=== PATIENT | male | born 1960 | race Caucasian/White ===

== ENCOUNTER 2016-10-22 10:02 | Outpatient (CLI) | payer BC ==
[~2016-10-22] VITALS: Ht 193 cm; Wt 97.1 kg
[~2016-10-22 10:02] MED LIST changes: -AMOX-358 PO; -EPIN0.3P2 IJ; -FLUC100T6 PO; -HYDR-3062 PO; -METR500T PO; -OMEP20TA7 PO
--- OUTSIDE RECORDS SUMMARY | 2016-10-22 10:06 | XMS REPORT | Continuity of Care Document ---
Author Author [facility] Organization [facility] Address Unknown Phone Unavailable Care Team Providers Care Wood Veneer Taper Name Role Phone Km Romero PCP [phone] Source Comments Some departments are not documenting in the electronic medical record. If you do not see the information that you expected, contact Release of Information in the Health Information Management department at [phone] for further assistance in locating additional records.[facility] Active Allergies and Adverse Reactions Allergen Noted Date Severity Reactions Comments Aspirin 09/12/2016 High ANAPHYLAXIS [place] 09/20/2016 Low STOMACH UPSET Egg 09/20/2016 High [...] (EPIPEN Inject 0.3 mg into the Active 2-ALVELL) 1 mg/mL injection muscle once as needed. [...] Encounters Date Type Specialty Providers Description 10/22/2016 [facility] Jeremi Hicks MD Dysphagia Encounter 10/22/2016 Surgery Jeremi Hicks MD Canceled ESOPHAGOGASTRODUODENOSCOP Y 10/09/2016 Telephone GastroenterMya Sampson Appointment Request - EGD - [facility] 10/08/2016 Prep for Case Gastroenterology Jeremi Hicks MD 10/08/2016 Telephone Gastroenterology Jeremi Hicks MD Other - repeat EGD 10/08/2016 Telephone Gastroenterology Corwin Lind MD Provider Discussion About Patient 10/04/2016 [facility] Jeremi Hicks MD Dysphagia Encounter 10/04/2016 Endo [...] GastroenterMya Sampson Appointment Request - EGD/Colonoscopy - [facility] 09/12/2016 Office Visit Gastroenterology Corwin Lind [...] Taken Blood Pressure 130/75 10/04/2016 9:07 AM RETAIL BANKING MANAGER Pulse 85 10/04/2016 9:07 AM RETAIL BANKING MANAGER Temperature 36.9 C (98.4 F) 10/04/2016 8:37 AM RETAIL BANKING MANAGER Respiratory Rate 16 09/12/2016 1:29 PM RETAIL BANKING MANAGER Height 1.93 m (6' 4") 10/04/2016 7:07 AM RETAIL BANKING MANAGER Weight 98.884 kg (218 lb) 10/04/2016 7:07 AM RETAIL BANKING MANAGER Body Mass Index 26.55 10/04/2016 7:07 AM RETAIL BANKING MANAGER Oxygen Saturation 99% 10/04/2016 9:07 AM RETAIL BANKING MANAGER Plan of Care Health Maintenance Due Date Last Done Comments Hepatitis C Screening 1960 Physical (Comprehensive) 1968 Exam Pertussis Vaccine 1972 Tetanus Vaccine 1978 Influenza Vaccine 06/13/2016 Colorectal Cancer 10/04/2026 10/04/2016, 10/04/2016 Screening Procedures from Last 3 Months Procedure Name Priority Date/Time Associated Diagnosis Comments TELEMETRY STRIPS-SCAN 10/08/2016 Results for this 12:11 PM RETAIL BANKING MANAGER procedure are in the results section. ESOPHAGOGASTRODUODENOSCOP 10/04/2016 Dysphagia Y BIOPSY 7:30 AM RETAIL BANKING MANAGER ESOPHAGOGASTRODUODENOSCOP 10/04/2016 Dysphagia Y & Colonoscopy with 7:30 AM RETAIL BANKING MANAGER Fabiola for dysphagia, h/o EOE and Ileocecal valve polyp. Needs PAT prior on separate day. COLONOSCOPY and EGD with 10/04/[address] Hicks for 7:30 AM RETAIL BANKING MANAGER dysphagia, h/o EOE and Ileocecal valve polyp. Needs PAT prior on separate day. Results from Last 3 Months TELEMETRY STRIPS-SCAN (10/08/2016 12:11 PM) Narrative Ordered by an unspecified provider. SURGICAL PATHOLOGY (10/04/2016 8:59 AM) Component Value Range PATHOLOGY REPORT [facility] [email or web address] Apryl Bernardo MD, PhD, Director of Anatomic Pathology Department of Pathology and Laboratory Medicine [address] [place] [phone] Surgical Pathology Office: [phone] SURGICAL PATHOLOGY REPORT NAME: MENDY AGOSTO SURG PATH #: [id number] MR #: [id number] SPECIMEN CLASS: SR BILLING #: [id number] ALT ID #: LOCATION: [facility] DATE OF [...] See comment. Comment: E. Pursuant to the Weigh Boss Program at the [facility] Pathology Department, selected slides from this case [...] of Pathology and Laboratory Medicine of the [facility] ([employer]) in compliance with CLIA'88 regulations. Some of these tests rely on the use of "analyte specific reagents" and are subject to specific labeling requirements by the FDA. Known positive and negative control tissues demonstrate appropriate staining. This testing was developed by the Department of Pathology and Laboratory Medicine of the [facility]. It has not been cleared or approved by the FDA. The FDA has determined that such clearance or approval is not necessary. 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 Providers: Jeremi Hicks MD (Doctor), Yana Basilio RN (Nurse), Ricardo Lucas, Disaster Director (Disaster Director), Hollie Wang MD (Fellow) Referring Physician: Corwin [...] 36 seconds Procedure Code(s): --- Professional --- 91934, Colonoscopy, flexible; with biopsy, single or multiple Diagnosis Code(s): --- Professional --- K64.8, Other hemorrhoids K63.5, Polyp of colon CPT copyright 2015 [employer]. All rights reserved. The codes documented in this report are preliminary and upon technical administrative assistant review may be revised to meet current [...] ID Moderate growth RODOLFO ALBICANS Specimen Esophageal [place] Organism Antibiotic Method Susceptibility Moderate growth rodolfo [...] Vázquez Procedure Date: 10/04/2016 7:31 AM CSN: [id number] Date of : 1960 Gender: Male Attending Physician: Jeremi Hicks MD Procedure: Upper GI endoscopy Indications: Dy sphagia, History of celiac disease. Providers: Jeremi Hicks MD (Doctor), Yana Basilio RN (Nurse), Ricardo Lucas, Disaster Director (Disaster Director), Hollie Wang MD (Fellow) Referring Physician: Corwin [...] 6 seconds Procedure Code(s): --- Professional --- 76399, Esophagogastroduodenoscopy, flexible, transoral; with biopsy, single or multiple Diagnosis Code(s): --- Professional --- B37.81, Candidal esophagitis K22.2, Esophageal obstruction K31.7, Polyp of stomach and duodenum R13.10, Dysphagia, unspecified CPT copyright 2015 [employer]. All rights reserved. The codes documented in this report are preliminary and upon technical administrative assistant review may be revised to meet current [...]
[2016-10-22] MEDS ORDERED: OMEP20TA7 PO (10:36)
[2016-10-22 10:45] VITALS: BP 145/87
[2016-11-01] MEDS ORDERED: METR500T PO (09:30)
== END 2016-10-22 10:30 | disposition home or self-care (01) ==
LOC: PREOP 10:02
PROVIDERS: ATTEND Surgery
DX: Z01.818 Encounter for other preprocedural examination (principal); Z11.2 Encounter for screening for other bacterial diseases; C18.9 Malignant neoplasm of colon, unspecified
CPT/HCPCS: 87081

== ENCOUNTER → 2016-10-22 | Outpatient (CLI) | payer BC ==
[~2016-10-22] MED LIST: AMOX-358 PO; CHLO1CAP PO; DIPH25CA79 PO; EPIN0.3P2 IJ; FLUC100T6 PO; HYDR-3062 PO; LOPE-134 PO; METR500T PO; MOME13HF2 IH; MONT10TA21 PO; OMEP20TA7 PO; RT-ALBUINH IH
--- OUTSIDE RECORDS SUMMARY | 2016-10-22 08:54 | XMS REPORT | Continuity of Care Document ---
Author Author [facility] Organization [facility] Address Unknown Phone Unavailable Care Team Providers Care Dial Brusher Name Role Phone Km Romero PCP [phone] Source Comments Some departments are not documenting in the electronic medical record. If you do not see the information that you expected, contact Release of Information in the Health Information Management department at [phone] for further assistance in locating additional records.[facility] Active Allergies and Adverse Reactions Allergen Noted Date Severity Reactions Comments Aspirin 09/12/2016 High ANAPHYLAXIS Claude 09/20/2016 Low STOMACH UPSET Egg 09/20/2016 High ANAPHYLAXIS Latex 09/20/2016 Medium HIVES Oats 09/20/2016 High ANAPHYLAXIS Other 09/12/2016 Medium HIVES Patient states he is allergic to most antibiotics except cephalexin, he does not know the names of any of the antibiotics he has tried Peanut 09/20/2016 High ANAPHYLAXIS Pepper 09/20/2016 High ANAPHYLAXIS Poultry 09/20/2016 High ANAPHYLAXIS Rice 09/20/2016 High ANAPHYLAXIS Shellfish Containing High ANAPHYLAXIS Products Tylenol 09/12/2016 Low SEE COMMENTS Urinary retention Vegetable Derived 09/20/2016 Low STOMACH UPSET can only have potatos and small amounts of spinach Wheat 09/20/2016 High ANAPHYLAXIS Yeast 09/20/2016 High ANAPHYLAXIS Current Medications Prescription Sig. Disp. Refills Start End Date Status Date albuterol (VENTOLIN HFA, Inhale 1-2 Puffs by mouth Active PROAIR HFA, PROVENTIL into the lungs as Needed HFA) 90 mcg/actuation for Wheezing or Shortness inhaler of Breath. Shake well before use. montelukast (SINGULAIR) Take 10 mg by mouth at Active 10 mg tablet bedtime daily. loperamide (IMODIUM) 2 mg Take 2 mg by mouth daily. Active capsule diphenhydrAMINE (BENADRYL Take 25 mg by mouth three Active ALLERGY) 25 mg tablet times daily with meals. clidinium/chlordiazePOXID Take 1 Cap by mouth Active E(+) (LIBRAX) 2.5/5 mg daily. cap Mometasone-Formoterol Inhale by mouth into the Active 200-5 mcg/actuation HFAA lungs. EPINEPHrine(+) (EPIPEN Inject 0.3 mg into the Active 2-LAVELL) 1 mg/mL injection muscle once as needed. pen (2-Pack) Inject 0.3 mg (1 Pen) into thigh if needed for anaphylactic reaction. May repeat in 5-15 minutes if needed. electrolyte GUT PEG Split Dose 4000 mL 0 09/12/20 10/04/20 Discontin (NULYTELY, COLYTE, 16 16 ued GAVILYTE-N) 420 gram oral solution Active Problems No known active problems Most Recent Encounters Date Type Specialty Providers Description 10/22/2016 [facility] Jeremi Hicks MD Dysphagia Encounter 10/22/2016 Surgery Jeremi Hicks MD Canceled ESOPHAGOGASTRODUODENOSCOP Y 10/09/2016 Telephone GastroenterMya Sampson Appointment Request - EGD - [facility] 10/08/2016 Prep for Case Gastroenterology Jeremi Hicks MD 10/08/2016 Telephone Gastroenterology Jeremi Hicks MD Other - repeat EGD 10/08/2016 Telephone Gastroenterology Corwin Lind MD Provider Discussion About Patient 10/04/2016 [facility] Jeremi Hicks MD Dysphagia Encounter 10/04/2016 Endo Rslt Enc GastroenterCorwin Tesfaye MD 10/04/2016 Endo Rslt Enc GastroenterCorwin Tesfaye MD 10/04/2016 Surgery Jeremi Hicks MD COLONOSCOPY and EGD with Dr. Hicks for dysphagia, h/o EOE and Ileocecal valve polyp. Needs PAT prior on separate day. 09/20/2016 PAC Office Anesthesiology Corwin Lind MD Preop cardiovascular exam Visit (Primary Dx); Preop testing 09/20/2016 Anesthesia Bia Worley APRN Event 09/19/2016 Telephone GastroenterJeremi Marshall MD Patient Questions 09/16/2016 Telephone GastroenterMya Sampson Appointment Request - EGD/Colonoscopy - [facility] 09/12/2016 Office Visit Gastroenterology Corwin Lind MD Colonic adenoma (Primary Dx); Celiac disease 09/12/2016 Prep for Case Gastroenterology Corwin Lind MD 09/11/2016 Telephone Gastroenterology Corwin Lind MD Referral Social History Tobacco Use Types Packs/Day Years Used Date Never Smoker Smokeless Tobacco: Never Used Alcohol Use Drinks/Week oz/Week Comments No 0 Standard 0.0 drinks or equivalent Last Filed Vital Signs Vital Sign Reading Time Taken Blood Pressure 130/75 10/04/2016 9:07 AM [employer] Pulse 85 10/04/2016 9:07 AM [employer] Temperature 36.9 C (98.4 F) 10/04/2016 8:37 AM [employer] Respiratory Rate 16 09/12/2016 1:29 PM [employer] Height 1.93 m (6' 4") 10/04/2016 7:07 AM [employer] Weight 98.884 kg (218 lb) 10/04/2016 7:07 AM [employer] Body Mass Index 26.55 10/04/2016 7:07 AM [employer] Oxygen Saturation 99% 10/04/2016 9:07 AM [employer] Plan of Care Health Maintenance Due Date Last Done Comments Hepatitis C Screening 1960 Physical (Comprehensive) 1968 Exam Pertussis Vaccine 1972 Tetanus Vaccine 1978 Influenza Vaccine 06/13/2016 Colorectal Cancer 10/04/2026 10/04/2016, 10/04/2016 Screening Procedures from Last 3 Months Procedure Name Priority Date/Time Associated Diagnosis Comments TELEMETRY STRIPS-SCAN 10/08/2016 Results for this 12:11 PM [employer] procedure are in the results section. ESOPHAGOGASTRODUODENOSCOP 10/04/2016 Dysphagia Y BIOPSY 7:30 AM [employer] ESOPHAGOGASTRODUODENOSCOP 10/04/2016 Dysphagia Y & Colonoscopy with 7:30 AM [employer] Fabiola for dysphagia, h/o EOE and Ileocecal valve polyp. Needs PAT prior on separate day. COLONOSCOPY and EGD with 10/04/[address] Hicks for 7:30 AM [employer] dysphagia, h/o EOE and Ileocecal valve polyp. Needs PAT prior on separate day. Results from Last 3 Months TELEMETRY STRIPS-SCAN (10/08/2016 12:11 PM) Narrative Ordered by an unspecified provider. SURGICAL PATHOLOGY (10/04/2016 8:59 AM) Component Value Range PATHOLOGY REPORT [facility] [email or web address] Apryl Bernardo MD, PhD, Director of Anatomic Pathology Department of Pathology and Laboratory Medicine [address] [place] [id number] Surgical Pathology Office: [phone] SURGICAL PATHOLOGY REPORT NAME: MENDY AGOSTO SURG PATH #: [id number] MR #: [id number] SPECIMEN CLASS: SR BILLING #: [id number] ALT ID #: LOCATION: [facility] DATE OF PROCEDURE: 10/04/2016 AGE: 56 SEX: M DATE RECEIVED: 10/04/2016 : 1960 TIME RECEIVED: 08:59 PHYSICIAN: JEREMI SO DATE OF REPORT: 10/10/2016 COPY TO: DATE OF PRINTIN10/11/2016 Procedures/Addenda Addendum Date Ordered: 10/11/2016 Status: Signed Out Date Complete: 10/11/2016 By: Ezio Rubio MD, Attending Physician Date Reported: 10/11/2016 Addendum Diagnosis The original diagnosis remains unchanged. Addendum Comment Immunostains for synaptophysin and chromogranin on block A1 are negative. A Ki-67 immunostain shows an elevated proliferative index in the neoplastic tissue. Ezio Rubio MD, Attending Physician ################################################## ###################### Final Diagnosis: A. Duodenal mucosa, "duodenal biopsy", biopsy: Normal villous architecture with no diagnostic abnormalities. B. Gastric mucosa, "gastric polyp", biopsy: Fundic gland polyp. C. Squamous mucosa, "distal esophageal biopsy", biopsy: Mild changes suggestive of reflux. A fungal (PAS/F) stain is negative. D. Squamous mucosa, "proximal esophageal biopsy: A fungal (PAS/F) stain demonstrates few fungal yeast/pseudohyphate forms, consistent with Rodolfo, present in association with a detached clusters of superficial squamous cells. We cannot exclude the possibility that this represents a contaminant from the upper aerodigestive tract. E. 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 See comment. Comment: E. Pursuant to the [employer] Program at the [facility] Pathology Department, selected slides from this case have been concurrently reviewed by the following pathologist: Dr. Barnett who agrees with the final diagnosis. Attestation: By this signature, I attest that I have personally formulated the final interpretation expressed in this report and that the above diagnosis is based upon my examination of the slides and/or other material indicated in this report. +++Electronically Signed Out By+++ ke10/08/2016 Interpreted by: Ezio Rubio MD, Attending Physician Mynor Woods MD 10/10/2016 ################################################## ###################### Material Received: A: duodenal biopsy B: gastric polyp C: distal esophageal biopsy D: proximal esophageal biopsy E: mass at ileocecal valve History: 56-year-old male with a clinical history of dysphagia and colon polyp. A. Rule out celiac disease. C. Rule out eosinophilic esophagitis. D. Rule out eosinophilic esophagitis. Gross Description: A. Received in formalin labeled "duodenal" is a 1.3 x 0.2 x 0.2 cm aggregate of adrian-brown soft tissue fragments. The specimen is entirely submitted in cassette A1. (jrz) B. Received in formalin labeled "gastric polyp" is a 0.3 x 0.2 x 0.2 cm aggregate of adrian-brown soft tissue fragments. The specimen is entirely submitted in cassette B1. (jrz) C. Received in formalin labeled "distal esophagus" is a 0.8 x 0.2 x 0.1 cm aggregate of adrian-brown soft tissue fragments. The specimen is entirely submitted in cassette C1. (jrz) D. Received in formalin labeled "proximal esophagus" is a 1.1 x 0.2 x 0.1 cm aggregate of adrian-brown soft tissue fragments. The specimen is entirely submitted in cassette D1. (jrz) E. Received in formalin labeled "mass at ileocecal valve" is a 2.5 x 1.0 x 0.2 cm aggregate of adrian-brown and pink, friable, soft tissue fragments. The specimen is entirely submitted in cassette E1. (jrz) paj/10/04/2016 Mynor Woods MD If immunohistochemical stains and/or in situ hybridization are cited in this report, the performance characteristics were determined by the Department of Pathology and Laboratory Medicine of the [facility] ([employer]) in compliance with CLIA'88 regulations. Some of these tests rely on the use of "analyte specific reagents" and are subject to specific labeling requirements by the FDA. Known positive and negative control tissues demonstrate appropriate staining. This testing was developed by the Department of Pathology and Laboratory Medicine of the [facility]. It has not been cleared or approved by the FDA. The FDA has determined that such clearance or approval is not necessary. COLONOSCOPY (10/04/2016 8:01 AM) Component Value Range Provation Report Patient Name: Raghu Vázquez Procedure Date: 10/04/2016 8:01 AM CSN: [id number] Date of : 1960 Gender: Male Attending Physician: Jeremi Hicks MD Procedure: Colonoscopy Indications: Hi story of IC valve polyp seen from outside colonoscopy, biopsies of which showed adxenoma - presents for possible rescection. Providers: Jeremi Hicks MD (Doctor), Yana Basilio RN (Nurse), Ricardo Lucas, Logging Crew Foreman (Logging Crew Foreman), Hollie Wang MD (Fellow) Referring Physician: Corwin Lind MD Medications: Mo nitored Anesthesia Care Complications: No immediate complications. Procedure: Pre-Anesthesia Assessment: - Prior to the procedure, a History and Physical was performed, and patient medications and allergies were reviewed. The patient's tolerance of previous anesthesia was also reviewed. The risks and benefits of the procedure and the sedation options and risks were discussed with the patient. All questions were answered, and informed consent was obtained. Prior Anticoagulants: The patient has taken no previous anticoagulant or antiplatelet agents. ASA Grade Assessment: III - A patient with severe systemic disease. After reviewing the risks and benefits, the patient was deemed in satisfactory condition to undergo the procedure. After I obtained informed consent, the scope was passed under direct vision. Throughout the procedure, the patient's blood pressure, pulse, and oxygen saturations were monitored continuously. The Colonoscope [id number] was introduced through the anus and advanced to the cecum, identified by appendiceal orifice and ileocecal valve. The colonoscopy was performed without difficulty. The patient tolerated the procedure well. The quality of the bowel preparation was good. The terminal ileum, ileocecal valve, appendiceal orifice, and rectum were photographed. Findings: A large friable 4 cm mass was found at the ileocecal valve extending in to the small bowel. The terminal ileum was unable to be intubated due to the mass involving the entire IC valve and causing narrowing - hence the mass was deemed unresectable by endoscopy. Careful insepction of the mass was performed with white light and NBI and absence of mucosal pattern seen in one are concerning for malignancy. Multiple biopsies were obtained with cold forceps for histology. Non-bleeding external and internal hemorrhoids were found during retroflexion. The hemorrhoids were small. Impression: - A large friable 4 cm mass was found at the ileocecal valve extending in to the small bowel. The terminal ileum was unable to be intubated due to the mass involving the entire IC valve and causing narrowing - hence the mass was deemed unresectable by endoscopy. Careful insepction of the mass was performed with white light and NBI and absence of mucosal pattern seen in one are concerning for malignancy. Multiple biopsies were obtained with cold forceps for histology. - Non-bleeding external and internal hemorrhoids. Estimated Blood Loss: Estimated blood loss was minimal. Recommendation: - Patient has a contact number available for emergencies. The signs and symptoms of potential delayed complications were discussed with the patient. Return to normal activities tomorrow. Written discharge instructions were provided to the patient. - Resume previous diet. - Continue present medications. - Await pathology results. - Surgery consultation for right hemicolectomy. - Repeat colonoscopy in 1 year after surgery. - Return to referring physician. Scope In: 8:06:18 AM Scope Out: 8:29:54 AM Scope Withdrawal Time 0 hours 19 minutes 4 seconds Total Procedure Duration Time 0 hours 23 minutes 36 seconds Procedure Code(s): --- Professional --- 80221, Colonoscopy, flexible; with biopsy, single or multiple Diagnosis Code(s): --- Professional --- K64.8, Other hemorrhoids K63.5, Polyp of colon CPT copyright 2015 [employer]. All rights reserved. The codes documented in this report are preliminary and upon tank insulator rubber review may be revised to meet current compliance requirements. Attending Participation: I was present and participated during the entire procedure, including non-mccallum portions. Jeremi Hicks MD 10/04/2016 9:46:12 AM The attending physician has electronically signed and finalized this document. MD Hollie Stockton MD 10/04/2016 8:53:28 AM Number of Addenda: 0 Note Initiated On: 10/04/2016 8:01 AM CULTURE-FUNGAL,OTHER (10/04/2016 7:59 AM) Component Value Range Battery Name FUNGUS CULTURE Specimen Description ESOPHAGEAL BRUSH Special Requests R/O Rodolfo Culture Moderate growth RODOLFO ALBICANS A correlation between CHAPARRO and clinical outcome is not yet available for Posaconazole. (A) Report Status FINAL 10/09/2016 Organism ID Moderate growth RODOLFO ALBICANS Specimen Esophageal [place] Organism Antibiotic Method Susceptibility Moderate growth rodolfo albicans Caspofungin YEAST CHAPARRO 0.03 SUSCEPTIBLE. : Susceptible Moderate growth rodolfo albicans Flucytosine YEAST CHAPARRO 0.25 SUSCEPTIBLE. : Susceptible Moderate growth rodolfo albicans Posaconazole YEAST CHAPARRO 0.03 NO INTERPRETATION AVAILABLE Moderate growth rodolfo albicans Voriconazole YEAST CHAPARRO <=0.008 SUSCEPTIBLE.: Susceptible Moderate growth rodolfo albicans Itraconazole YEAST CHAPARRO 0.06 SUSCEPTIBLE.: Susceptible Moderate growth rodolfo albicans Fluconazole YEAST CHAPARRO 0.25 SUSCEPTIBLE. : Susceptible Moderate growth rodolfo albicans Amphotericin B YEAST CHAPARRO 0.5 NO INTERPRETATION AVAILABLE Moderate growth rodolfo albicans Method YEAST CHAPARRO YEAST CHAPARRO EGD (10/04/2016 7:31 AM) Component Value Range Provation Report Patient Name: Raghu Vázquez Procedure Date: 10/04/2016 7:31 AM CSN: [id number] Date of : 1960 Gender: Male Attending Physician: Jeremi Hicks MD Procedure: Upper GI endoscopy Indications: Dy sphagia, History of celiac disease. Providers: Jeremi Hicks MD (Doctor), Yana Basilio RN (Nurse), Ricardo Lucas, Logging Crew Foreman (Logging Crew Foreman), Hollie Wang MD (Fellow) Referring Physician: Corwin Lind MD Medications: Mo nitored Anesthesia Care Complications: No immediate complications. Procedure: Pre-Anesthesia Assessment: - Prior to the procedure, a History and Physical was performed, and patient medications and allergies were reviewed. The patient's tolerance of previous anesthesia was also reviewed. The risks and benefits of the procedure and the sedation options and risks were discussed with the patient. All questions were answered, and informed consent was obtained. Prior Anticoagulants: The patient has taken no previous anticoagulant or antiplatelet agents. ASA Grade Assessment: III - A patient with severe systemic disease. After reviewing the risks and benefits, the patient was deemed in satisfactory condition to undergo the procedure. After obtaining informed consent, the endoscope was passed under direct vision. Throughout the procedure, the patient's blood pressure, pulse, and oxygen saturations were monitored continuously. The Endoscope [id number] was introduced through the mouth, and advanced to the second part of duodenum. The upper GI endoscopy was accomplished without difficulty. The patient tolerated the procedure well. Findings: Esophagogastric landmarks were identified: the Z-line was found at 45 cm from the incisors. Small white plaques were found in the entire esophagus. Brushings were obtained to rule out candidiasis. Esophagus biopsies were obtained from distal and proximal esophagus to rule out EoE. There was a stenosis found at the GEJ which was traversed with moderate resistance with regular EGD scope and resulted in a mucosal tear. Given that a tear was created with passage of a regular scope (hence dilation to 9mm), no further dilation was attempted. LA Grade A (one or more mucosal breaks less than 5 mm, not extending between tops of 2 mucosal folds) esophagitis with no bleeding was found. A few sessile polyps with no bleeding and no stigmata of recent bleeding were found in the gastric body. One polyp was removed with a cold biopsy forceps for histology evaluation. The examined duodenum was normal. Biopsies for histology were taken with a cold forceps for for evaluation of celiac disease. Estimated blood loss was minimal. Impression: - Esophagogastric landmarks identified. - Monilial esophagitis. - Esophageal stenosis. - A few gastric polyps. Resected and retrieved. - Normal examined duodenum. Estimated Blood Loss: Estimated blood loss: none. Recommendation: - Patient has a contact number available for emergencies. The signs and symptoms of potential delayed complications were discussed with the patient. Return to normal activities tomorrow. Written discharge instructions were provided to the patient. - Resume previous diet. - Continue present medications. - Return to referring physician. - Await pathology results. - Repeat the upper endoscopy in 2 weeks for dilation Scope In: 7:47:23 AM Scope Out: 8:01:29 AM Total Procedure Duration Time 0 hours 14 minutes 6 seconds Procedure Code(s): --- Professional --- 40853, Esophagogastroduodenoscopy, flexible, transoral; with biopsy, single or multiple Diagnosis Code(s): --- Professional --- B37.81, Candidal esophagitis K22.2, Esophageal obstruction K31.7, Polyp of stomach and duodenum R13.10, Dysphagia, unspecified CPT copyright 2015 [employer]. All rights reserved. The codes documented in this report are preliminary and upon tank insulator rubber review may be revised to meet current compliance requirements. Attending Participation: I was present and participated during the entire procedure, including non-mccallum portions. Jeremi Hicks MD 10/04/2016 9:42:26 AM The attending physician has electronically signed and finalized this document. MD Hollie Stockton MD 10/04/2016 8:42:46 AM Number of Addenda: 0 Note Initiated On: 10/04/2016 7:31 AM POC GLUCOSE (10/04/2016 7:11 AM) Component Value Range Glucose, POC 146 (H) 70-100 MG/DL CBC (09/20/2016 2:46 PM) Component Value Range White Blood Cells 10.1 4.5-11.0 K/UL RBC 5.02 4.4-5.5 M/UL Hemoglobin 14.6 13.5-16.5 GM/DL Hematocrit 43.7 40-50 % MCV 87.1 80-100 FL MCH 29.1 26-34 PG MCHC 33.5 32.0-36.0 G/DL RDW 13.5 11-15 % Platelet Count 205 150-400 K/UL MPV 9.4 7-11 FL Specimen Blood BASIC METABOLIC PANEL (09/20/2016 2:46 PM) Component Value Range Sodium 135 (L) 137-147 MMOL/L Potassium 3.8 3.5-5.1 MMOL/L Chloride 103 98-110 MMOL/L CO2 24 21-30 MMOL/L Anion Gap 8 3-12 Glucose 181 (H) 70-100 MG/DL Blood Urea Nitrogen 14 7-25 MG/DL Creatinine 0.81 0.4-1.24 MG/DL Calcium 9.4 8.5-10.6 MG/DL eGFR Non >60Comment: >60 mL/min The eGFR is not validated for use in drug dosing adjustments. Continue to use estimated creatinine clearance per dosing reference text. Please contact the Clinical Pharmacist for questions. eGFR >60Comment: >60 mL/min The eGFR is not validated for use in drug dosing adjustments. Continue to use estimated creatinine clearance per dosing reference text. Please contact the Clinical Pharmacist for questions. Specimen Blood
[2016-10-22 09:20] LABS: RED BLOOD COUNT 5.13 10^6/uL (4.35-5.85); RED CELL DISTRIBUTION WIDTH 13.3 % (10.0-14.5); WHITE BLOOD COUNT 11.3 10^3/uL (4.3-11.0)
[2016-10-22 09:42] LABS: ALANINE AMINOTRANSFERASE 20 U/L (0-55); ALBUMIN 4.4 G/DL (3.2-4.5); ANION GAP 8 MMOL/L (5-14); ASPARTATE AMINO TRANSFERASE 21 U/L (5-34); BILIRUBIN,TOTAL 0.5 MG/DL (0.1-1.0); BLOOD UREA NITROGEN 14 MG/DL (7-18); BUN/CREATININE RATIO 16; CALCIUM 9.6 MG/DL (8.5-10.1); CARBON DIOXIDE 23 MMOL/L (21-32); CHLORIDE 106 MMOL/L (98-107); CREATININE SERUM 0.89 MG/DL (0.60-1.30); GFR ESTIMATED > 60; GLUCOSE 137 MG/DL (70-105); POTASSIUM 4.3 MMOL/L (3.6-5.0); SODIUM 137 MMOL/L (135-145); TOTAL PROTEIN 7.7 G/DL (6.4-8.2)
--- NOTE | 2016-10-22 14:06 | Diagnostic Imaging Report ---
EXAMINATION: PET-CT TECHNIQUE: Serum glucose level at the time of the study is: 133 mg/dL. 13.4 mCi of FDG was administered intravenously followed by obtaining PET images with corresponding noncontrast CT scan images. The CT scan was performed for anatomic correlation and attenuation correction and was not performed according to the diagnostic protocol of the areas covered. The scan was performed over the entire body. INDICATION: Colon cancer. FINDINGS: There is symmetric FDG uptake in the brain. In the neck, there is no suspicious hypermetabolic mass identified. In the chest, no suspicious hypermetabolic lesion is seen. IN THE ABDOMEN AND PELVIS: There is expected urinary tract excretion. There is mild thickening in the cecum associated with mild FDG uptake with maximum SUV of 3.2. This may correlate with the provided history of colon cancer. Correlate with endoscopic findings. There are no hepatic hypermetabolic masses. No hypermetabolic para-aortic enlarged lymph nodes seen. There is a non-hypermetabolic mildly prominent lymph node in the retrocecal region, may relate to an involved lymph node without significant FDG uptake at this point. Osseous structures demonstrate no hypermetabolic mass. The lower extremities demonstrate no hypermetabolic mass of significance. There is mild nonspecific, commonly physiologic increased uptake seen in the testicles. IMPRESSION: There is mild increased FDG uptake seen associated with soft tissue thickening in the cecum. There is no associated hypermetabolic mass to suggest metastatic disease. There is a mildly prominent retrocecal lymph node without significant FDG uptake, although nonspecific, it may relate to an early regional lymph node involvement. Dictated by: Dictated on workstation # [id number]
== END ==
LOC: RAD 08:48
PROVIDERS: ATTEND Surgery
DX: C18.9 Malignant neoplasm of colon, unspecified (principal); R59.0 Localized enlarged lymph nodes; K59.8 Other specified functional intestinal disorders
CPT/HCPCS: 36415; 80053; 82378; 85027

== ENCOUNTER 2016-10-24 06:00 | Inpatient (IN) | payer BC ==
[2016-10-24] VITALS (13 sets, daily range): BP systolic 143–166; BP diastolic 85–96
[~2016-10-24] VITALS: Ht 193 cm; Wt 98.7 kg
[~2016-10-24 06:00] MED LIST changes: +OMEP20TA7 PO
--- OUTSIDE RECORDS SUMMARY | 2016-10-24 06:09 | XMS REPORT | Continuity of Care Document ---
Author Author [facility] Organization [facility] Address Unknown Phone Unavailable Care Team Providers Care Farmworker Brooder Farm Name Role Phone Km Romero PCP [phone] Source Comments Some departments are not documenting in the electronic medical record. If you do not see the information that you expected, contact Release of Information in the Health Information Management department at [phone] for further assistance in locating additional records.[facility] Active Allergies and Adverse Reactions Allergen Noted Date Severity Reactions Comments Aspirin 09/12/2016 High ANAPHYLAXIS [place] 09/20/2016 Low STOMACH UPSET Egg 09/20/2016 High [...] Encounters Date Type Specialty Providers Description 10/22/2016 [facility] Jeremi Hicks MD Dysphagia Encounter 10/22/2016 Surgery Jeremi Hicks MD Canceled ESOPHAGOGASTRODUODENOSCOP Y 10/09/2016 Telephone GastroenterMya Sampson Appointment Request - EGD - [facility] 10/08/2016 Prep for Case Gastroenterology Jeremi Hicks MD 10/08/2016 Telephone Gastroenterology Jeremi Hicks MD Other - repeat EGD 10/08/2016 Telephone Gastroenterology Corwin Lind MD Provider Discussion About Patient 10/04/2016 [facility] Jeremi Hicks MD Dysphagia Encounter 10/04/2016 Endo [...] GastroenterMya Sampson Appointment Request - EGD/Colonoscopy - [facility] 09/12/2016 Office Visit Gastroenterology Corwin Lind MD [...] Taken Blood Pressure 130/75 10/04/2016 9:07 AM PROGRAM ASSISTANT Pulse 85 10/04/2016 9:07 AM PROGRAM ASSISTANT Temperature 36.9 C (98.4 F) 10/04/2016 8:37 AM PROGRAM ASSISTANT Respiratory Rate 16 09/12/2016 1:29 PM PROGRAM ASSISTANT Height 1.93 m (6' 4") 10/04/2016 7:07 AM PROGRAM ASSISTANT Weight 98.884 kg (218 lb) 10/04/2016 7:07 AM PROGRAM ASSISTANT Body Mass Index 26.55 10/04/2016 7:07 AM PROGRAM ASSISTANT Oxygen Saturation 99% 10/04/2016 9:07 AM PROGRAM ASSISTANT Plan of Care Health Maintenance Due Date Last Done Comments Hepatitis C Screening 1960 Physical (Comprehensive) 1968 Exam Pertussis Vaccine 1972 Tetanus Vaccine 1978 Influenza Vaccine 06/13/2016 Colorectal Cancer 10/04/2026 10/04/2016, 10/04/2016 Screening Procedures from Last 3 Months Procedure Name Priority Date/Time Associated Diagnosis Comments TELEMETRY STRIPS-SCAN 10/08/2016 Results for this 12:11 PM PROGRAM ASSISTANT procedure are in the results section. ESOPHAGOGASTRODUODENOSCOP 10/04/2016 Dysphagia Y BIOPSY 7:30 AM PROGRAM ASSISTANT ESOPHAGOGASTRODUODENOSCOP 10/04/2016 Dysphagia Y & Colonoscopy with 7:30 AM PROGRAM ASSISTANT Fabiola for dysphagia, h/o EOE and Ileocecal valve polyp. Needs PAT prior on separate day. COLONOSCOPY and EGD with 10/04/[address] Hicks for 7:30 AM PROGRAM ASSISTANT dysphagia, h/o EOE and Ileocecal valve polyp. Needs PAT prior on separate day. Results from Last 3 Months TELEMETRY STRIPS-SCAN (10/08/2016 12:11 PM) Narrative Ordered by an unspecified provider. SURGICAL PATHOLOGY (10/04/2016 8:59 AM) Component Value Range PATHOLOGY REPORT [facility] [email or web address] Apryl Bernardo MD, PhD, Director of Anatomic Pathology Department of Pathology and Laboratory Medicine [address] [place] [phone] Surgical Pathology Office: [phone] SURGICAL PATHOLOGY REPORT NAME: MENDY AGOSTO SURG PATH #: [id number] MR #: [id number] SPECIMEN CLASS: SR BILLING #: [id number] ALT ID #: LOCATION: [facility] DATE OF [...] See comment. Comment: E. Pursuant to the Keypuncher Program at the [facility] Pathology Department, selected slides from this [...] of Pathology and Laboratory Medicine of the [facility] ([employer]) in compliance with CLIA'88 regulations. Some of these tests rely on the use of "analyte specific reagents" and are subject to specific labeling requirements by the FDA. Known positive and negative control tissues demonstrate appropriate staining. This testing was developed by the Department of Pathology and Laboratory Medicine of the [facility]. It has not been cleared or approved by the FDA. The FDA has determined that such clearance or approval is not necessary. 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 Providers: Jeremi Hicks MD (Doctor), Yana Basilio RN (Nurse), Ricardo Lucas, Performance Improvement Specialist (Performance Improvement Specialist), Hollie Wang MD (Fellow) Referring Physician: Corwin [...] 36 seconds Procedure Code(s): --- Professional --- 12333, Colonoscopy, flexible; with biopsy, single or multiple Diagnosis Code(s): --- Professional --- K64.8, Other hemorrhoids K63.5, Polyp of colon CPT copyright 2015 [employer]. All rights reserved. The codes documented in this report are preliminary and upon soda clerk review may be revised to meet current [...] ID Moderate growth RODOLFO ALBICANS Specimen Esophageal [place] Organism Antibiotic Method Susceptibility Moderate growth rodolfo [...] Vázquez Procedure Date: 10/04/2016 7:31 AM CSN: [id number] Date of : 1960 Gender: Male Attending Physician: Jeremi Hicks MD Procedure: Upper GI endoscopy Indications: Dy sphagia, History of celiac disease. Providers: Jeremi Hicks MD (Doctor), Yana Basilio RN (Nurse), Ricardo Lucas, Performance Improvement Specialist (Performance Improvement Specialist), Hollie Wang MD (Fellow) Referring Physician: Corwin [...] 6 seconds Procedure Code(s): --- Professional --- 92003, Esophagogastroduodenoscopy, flexible, transoral; with biopsy, single or multiple Diagnosis Code(s): --- Professional --- B37.81, Candidal esophagitis K22.2, Esophageal obstruction K31.7, Polyp of stomach and duodenum R13.10, Dysphagia, unspecified CPT copyright 2015 [employer]. All rights reserved. The codes documented in this report are preliminary and upon soda clerk review may be revised to meet current [...]
--- OUTSIDE RECORDS SUMMARY | 2016-10-24 06:10 | XMS REPORT | Continuity of Care Document ---
Author Author [facility] Organization [facility] Address Unknown Phone Unavailable Care Team Providers Care Network Security Administrator Name Role Phone Km Romero PCP [phone] Source Comments Some departments are not documenting in the electronic medical record. If you do not see the information that you expected, contact Release of Information in the Health Information Management department at [phone] for further assistance in locating additional records.[facility] Active Allergies and Adverse Reactions Allergen Noted Date Severity Reactions Comments Aspirin 09/12/2016 High ANAPHYLAXIS [place] 09/20/2016 Low STOMACH UPSET Egg 09/20/2016 High [...] Encounters Date Type Specialty Providers Description 10/22/2016 [facility] Jeremi Hicks MD Dysphagia Encounter 10/22/2016 Surgery Jeremi Hicks MD Canceled ESOPHAGOGASTRODUODENOSCOP Y 10/09/2016 Telephone GastroenterMya Sampson Appointment Request - EGD - [facility] 10/08/2016 Prep for Case Gastroenterology Jeremi Hicks MD 10/08/2016 Telephone Gastroenterology Jeremi Hicks MD Other - repeat EGD 10/08/2016 Telephone Gastroenterology Corwin Lind MD Provider Discussion About Patient 10/04/2016 [facility] Jeremi Hicks MD Dysphagia Encounter 10/04/2016 [...] GastroenterMya Sampson Appointment Request - EGD/Colonoscopy - [facility] 09/12/2016 Office Visit Gastroenterology Corwin Lind MD [...] Taken Blood Pressure 130/75 10/04/2016 9:07 AM PHARMACY GRADUATE INTERN Pulse 85 10/04/2016 9:07 AM PHARMACY GRADUATE INTERN Temperature 36.9 C (98.4 F) 10/04/2016 8:37 AM PHARMACY GRADUATE INTERN Respiratory Rate 16 09/12/2016 1:29 PM PHARMACY GRADUATE INTERN Height 1.93 m (6' 4") 10/04/2016 7:07 AM PHARMACY GRADUATE INTERN Weight 98.884 kg (218 lb) 10/04/2016 7:07 AM PHARMACY GRADUATE INTERN Body Mass Index 26.55 10/04/2016 7:07 AM PHARMACY GRADUATE INTERN Oxygen Saturation 99% 10/04/2016 9:07 AM PHARMACY GRADUATE INTERN Plan of Care Health Maintenance Due Date Last Done Comments Hepatitis C Screening 1960 Physical (Comprehensive) 1968 Exam Pertussis Vaccine 1972 Tetanus Vaccine 1978 Influenza Vaccine 06/13/2016 Colorectal Cancer 10/04/2026 10/04/2016, 10/04/2016 Screening Procedures from Last 3 Months Procedure Name Priority Date/Time Associated Diagnosis Comments TELEMETRY STRIPS-SCAN 10/08/2016 Results for this 12:11 PM PHARMACY GRADUATE INTERN procedure are in the results section. ESOPHAGOGASTRODUODENOSCOP 10/04/2016 Dysphagia Y BIOPSY 7:30 AM PHARMACY GRADUATE INTERN ESOPHAGOGASTRODUODENOSCOP 10/04/2016 Dysphagia Y & Colonoscopy with 7:30 AM PHARMACY GRADUATE INTERN Fabiola for dysphagia, h/o EOE and Ileocecal valve polyp. Needs PAT prior on separate day. COLONOSCOPY and EGD with 10/04/[address] Hicks for 7:30 AM PHARMACY GRADUATE INTERN dysphagia, h/o EOE and Ileocecal valve polyp. Needs PAT prior on separate day. Results from Last 3 Months TELEMETRY STRIPS-SCAN (10/08/2016 12:11 PM) Narrative Ordered by an unspecified provider. SURGICAL PATHOLOGY (10/04/2016 8:59 AM) Component Value Range PATHOLOGY REPORT [facility] [email or web address] Apryl Bernardo MD, PhD, Director of Anatomic Pathology Department of Pathology and Laboratory Medicine [address] [place] [phone] Surgical Pathology Office: [phone] SURGICAL PATHOLOGY REPORT NAME: MENDY AGOSTO SURG PATH #: [id number] MR #: [id number] SPECIMEN CLASS: SR BILLING #: [id number] ALT ID #: LOCATION: [facility] DATE OF [...] See comment. Comment: E. Pursuant to the Passenger Car Upholsterer Apprentice Program at the [facility] Pathology Department, selected slides from this [...] x 0.2 x 0.1 cm aggregate of adiran-brown soft tissue fragments. The specimen is entirely [...] of Pathology and Laboratory Medicine of the [facility] ([employer]) in compliance with CLIA'88 regulations. Some of these tests rely on the use of "analyte specific reagents" and are subject to specific labeling requirements by the FDA. Known positive and negative control tissues demonstrate appropriate staining. This testing was developed by the Department of Pathology and Laboratory Medicine of the [facility]. It has not been cleared or approved by the FDA. The FDA has determined that such clearance or approval is not necessary. 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 Providers: Jeremi Hicks MD (Doctor), Yana Basilio RN (Nurse), Ricardo Lucas, Repair Technician (Repair Technician), Hollie Wang MD (Fellow) Referring Physician: Corwin [...] 36 seconds Procedure Code(s): --- Professional --- 15304, Colonoscopy, flexible; with biopsy, single or multiple Diagnosis Code(s): --- Professional --- K64.8, Other hemorrhoids K63.5, Polyp of colon CPT copyright 2015 [employer]. All rights reserved. The codes documented in this report are preliminary and upon electrical technology instructor review may be revised to meet current [...] ID Moderate growth RODOLFO ALBICANS Specimen Esophageal [place] Organism Antibiotic Method Susceptibility Moderate growth rodolfo [...] Vázquez Procedure Date: 10/04/2016 7:31 AM CSN: [id number] Date of : 1960 Gender: Male Attending Physician: Jeremi Hicks MD Procedure: Upper GI endoscopy Indications: Dy sphagia, History of celiac disease. Providers: Jeremi Hicks MD (Doctor), Yana Basilio RN (Nurse), Ricardo Lucas, Repair Technician (Repair Technician), Hollie Wang MD (Fellow) Referring Physician: Corwin [...] 6 seconds Procedure Code(s): --- Professional --- 57649, Esophagogastroduodenoscopy, flexible, transoral; with biopsy, single or multiple Diagnosis Code(s): --- Professional --- B37.81, Candidal esophagitis K22.2, Esophageal obstruction K31.7, Polyp of stomach and duodenum R13.10, Dysphagia, unspecified CPT copyright 2015 [employer]. All rights reserved. The codes documented in this report are preliminary and upon electrical technology instructor review may be revised to meet current [...]
[2016-10-24] MEDS ORDERED: MIDAZOLAM 2 MG/2 ML (VERSED) VIAL ONE (06:55)
[2016-10-24] MEDS ORDERED: ETOMIDATE IV SOLN 20 MG/10 ML VIAL ONE ×2 (06:55→07:01)
[2016-10-24] MEDS ORDERED: ONDANSETRON 4 MG/2 ML (SDV) Z0FRAN ONE (06:55)
[2016-10-24] MEDS ORDERED: ROCURONIUM 50 MG/5 ML (ZEMURON) VIAL IV ONE ×2 (06:55→09:03)
[2016-10-24] MEDS ORDERED: SEVOFLURANE (ULTANE) 15 ML INHAL SOLN ONE ×4 (06:55→10:08)
[2016-10-24] MEDS ORDERED: LACTATED RINGERS 1,000 ML IV ONE ×3 (06:55→09:42)
[2016-10-24] MEDS ORDERED: fentaNYL INJECTION 250 MCG/5 ML AMP ONE (06:56)
[2016-10-24] MEDS: LACTATED RINGERS 1,000 ML IV PRN ×3 (06:59→09:59)
[2016-10-24] MEDS ORDERED: FAMOTIDINE 20MG/2ML IV (PEPCID) IV ONE (07:00)
[2016-10-24] MEDS ORDERED: metroNIDAZOLE 500 MG/100 ML IVPB (PRE-MIX) IV ONE (07:00)
[2016-10-24] MEDS ORDERED: ceFAZolin 2GM/50 ML DEXTROSE (PREMIX) IV ONE (07:00)
[2016-10-24] MEDS ORDERED: BUP/EPI 0.25% 1:200,000 (MARCAINE) 30 ML VIAL ONE (07:13)
[2016-10-24] MEDS ORDERED: LIDOCAINE 1% INJ 20 ML (XYLOCAINE) VIAL ONE (07:28)
[2016-10-24] MEDS ORDERED: BUPIVACAINE 0.5% 30 ML (SENSORCAINE) VIAL ONE (07:28)
--- NOTE | 2016-10-24 07:38 | Progress Note-Pre Operative ---
Pre-Operative Progress Note H&P Reviewed The H&P was reviewed, patient examined and no changes noted. Date H&P Reviewed: Oct 24, 2016 Time H&P Reviewed: 07:38 Pre-Operative Diagnosis: cecal cancer RENAN DECKER DO Oct 24, 2016 7:38 am
[2016-10-24] MEDS ORDERED: LABETALOL HCL 20 MG/4 ML VIAL ONE (08:50)
[2016-10-24] MEDS ORDERED: fentaNYL INJECTION 100 MCG/2 ML AMP IVP PRN (10:00)
[2016-10-24] MEDS ORDERED: GLYCOPYRROLATE 0.2 MG/ML (ROBINUL) 2 ML VIAL ONE (10:08)
[2016-10-24] MEDS ORDERED: NEOSTIGMINE (BLOXIVERZ ) 1 MG/1ML 10 ML VIAL ONE (10:08)
--- NOTE | 2016-10-24 10:13 | Progress Note-Post Operative ---
Post-Operative Progess Note Epoxy Fabrication Supervisor Dr. Montelongo Pre-Operative Diagnosis cecal cancer Post-Operative Diagnosis same Post-Op Procedure Note Date of Procedure: Oct 24, 2016 Name of Procedure: laparoscopic hand assisted right colon resection hepatic flexure mobilization Procedure Note/Findings see note Anesthesia Type general Estimated blood loss (mL): 25 mL Specimen(s) collected right colon RENAN DECKER DO Oct 24, 2016 10:13 am
[2016-10-24] MEDS ORDERED: morphine PCA 30 MG/30 ML VIAL IV PRN (10:15)
[2016-10-24] MEDS ORDERED: fentaNYL INJECTION 100 MCG/2 ML AMP ONE (10:24)
--- NOTE | 2016-10-24 11:31 | Consultation-Hospitalist ---
HPI History of Present Illness: HPI/Chief Complaint CC: Cecal mass resection POD # 1 HPI: This is a 56yoWM s/p laparoscopic left partial colon resection for cecal mass performed by Dr. Farley. Surgery uncomplicated. Dr. Farley requested consultation from Dr. Garcia and pt will be sent to ICU on ice chip diet. Pt has significant amount of allergies to both food and medications. I introduce myself to the patient and his primary care provider is Dr. Romero in [place] of which she only goes once a year. He had seen [facility] gastroenterology but mass was so large it could not be removed via scope. At this current time pain is controlled and overall doing well and is expected. Scribed by Jose Alberto Holden under the direct supervision of Dr. Garcia. Source: patient Exam Limitations: clinical condition Date Seen 10/24/16 Attending Physician Mateo Farley DO PCP Km Romero DO Referring Physician Date of Admission Home Medications & Allergies Home Medications Reviewed patient Home Medication Reconciliation Form Allergies Coded Allergies: Poultry (Verified Allergy, Severe, ANAPHYLAXIS, 08/19/16) Yeast (Verified Allergy, Severe, ANAPHYLAXIS, 08/19/16) aspirin (Verified Allergy, Severe, ANAPHYLAXIS, 08/19/16) latex (Verified Allergy, Severe, HIVES, 08/19/16) wheat (Verified Allergy, Severe, ANAPHYLAXIS, 08/19/16) Influenza Virus Vaccines (Verified Allergy, Unknown, 10/22/16) banana (Verified Allergy, Unknown, 10/22/16) corn (Verified Allergy, Unknown, 10/22/16) egg (Verified Allergy, Unknown, 10/22/16) garlic (Verified Allergy, Unknown, 10/22/16) oats (Verified Allergy, Unknown, 10/22/16) onion (Verified Allergy, Unknown, 10/22/16) peanut (Verified Allergy, Unknown, 10/22/16) pepper (Verified Allergy, Unknown, 10/22/16) rice (Verified Allergy, Unknown, 10/22/16) shellfish derived (Verified Allergy, Unknown, 10/22/16) Uncoded Allergies: PAIN RELIEVERS (Allergy, Severe, ANAPHYLAXIS, 08/19/16) ANTIBIOTICS (Allergy, Unknown, 08/19/16) Past Digupbw-Lriule-Ipslty Hx Patient Social History Marrital Status: Employed/Student: employed Alcohol Use: Denies Use Recreational Drug Use: No Smoking Status: Never a Smoker Physical Abuse Screen: No Sexual Abuse: No Recent Foreign Travel: No Contact w/other who traveled: No Recent Hopitalizations: No Recent Infectious Disease Expo: No Immunizations Up To Date Tetanus Booster (TDap): Unknown Seasonal Allergies Seasonal Allergies: Yes (SEVERE ALLERGIES ) Surgeries HX Surgeries: No Respiratory Hx Respiratory Disorders: Yes Respiratory Disorders: Asthma Cardiovascular Hx Cardiovascular Disorders: No Neurological Hx Neurological Disorders: No Reproductive System Hx Reproductive Disorders: No Sexually Transmitted Disease: No HIV/AIDS: No Genitourinary Hx Genitourinary Disorders: No Gastrointestinal Hx Gastrointestinal Disorders: Yes Gastrointestinal Disorders: Chronic Diarrhea, Irritable Bowel Musculoskeletal Hx Musculoskeletal Disorders: No Endocrine Hx Endocrine Disorders: Yes Endocrine Disorders: Diabetes, Non-Insulin dep HEENT HX ENT Disorders: Yes (GLASSES, DENTURES) Loss of Vision: Bilateral Hearing Impairment: Denies Cancer Hx Cancer: No Cancer: Colon Psychosocial Hx Psychiatric Problems: Yes (RELATED TO PROCEDURE) Behavioral Health Disorders: Anxiety Integumentary HX Skin/Integumentary Disorder: Yes (HIVES) Blood Transfusions Hx Blood Disorders: No Adverse Reaction to a Blood Tr: No (N/A) Family Medical History Family Hx: Cardiovascular disease 19 FATHER Colon cancer 19 FATHER Diabetes mellitus 19 FATHER FH: ovarian cancer 19 MOTHER Hypertension 19 FATHER Myocardial infarction Review of Systems Constitutional: see HPI EENTM: no symptoms reported Respiratory: no symptoms reported Cardiovascular: no symptoms reported Gastrointestinal: abdominal pain (LLQ) Genitourinary: no symptoms reported Musculoskeletal: no symptoms reported Skin: no symptoms reported Psychiatric/Neurological: No Symptoms Reported All Other Systems Reviewed Negative Unless Noted: Yes Physical Exam Physical Exam Vital Signs Vital Sign - Last 12Hours 10/24/16 06:20 Temp 97.8 Pulse 85 Resp 18 B/P 145/96 Pulse Ox 97 O2 Delivery Room Air Capillary Refill : General Appearance: No Apparent Distress WD/WN Chronically ill Eyes: Bilateral Eye Normal Inspection, Bilateral Eye PERRL HEENT: PERRL/EOMI Normal ENT Inspection Pharynx Normal Neck: Full Range of Motion Normal Inspection Non Tender Supple Carotid Bruit Respiratory: Chest Non Tender Lungs Clear Normal Breath Sounds No Accessory Muscle Use No Respiratory Distress Cardiovascular: Regular Rate, Rhythm No Edema No Gallop No JVD No Murmur Normal Peripheral Pulses Gastrointestinal: Abnormal Bowel Sounds (decreased) Back: Normal Inspection No CVA Tenderness No Vertebral Tenderness Extremity: Normal Capillary Refill Normal Inspection Normal Range of Motion Non Tender No Calf Tenderness No Pedal Edema Neurologic/Psychiatric: Alert Oriented x3 No Motor/Sensory Deficits Normal Mood/Affect Skin: Normal Color Warm/Dry Lymphatic: No Adenopathy Results Results/Procedures Lab Laboratory Tests 10/25/16 03:34 Assessment/Plan Admission Diagnosis Assessment: Cecal mass colon cancer resection POD #1 Multiple medication and food allergies Asthma GERD Assessment and Plan Monitor closely Monitor any new medication due to allergy list Dr. Farley for disposition Clinical Quality Measures DVT/VTE Risk/Contraindication: Risk Factor Score Per Nursin RFS Level Per Nursing on Admit: 3=High OSMAR GARCIA DO Oct 24, 2016 11:31
[2016-10-24] MEDS: LACTATED RINGERS 1,000 ML IV SCH ×3 (11:34→21:45)
[2016-10-24] MEDS ORDERED: CATHETER FLUSH 10 ML SYR IV PRN (11:45)
[2016-10-24] MEDS: fentaNYL PCA 300 MCG/30 ML VIAL IV PRN (12:10)
[2016-10-24] MEDS: metroNIDAZOLE 500MG/100ML IVPB 100 ML IV SCH ×2 (13:38→22:58)
[2016-10-24] MEDS ORDERED: EPIN0.3P2 IJ (13:50)
[2016-10-24] MEDS ORDERED: FLUC100T6 PO (13:50)
[2016-10-24] MEDS: ceFAZolin 2 GM IV (SDC ONLY) 50 ML IV SCH ×2 (14:32→21:05)
[2016-10-24] MEDS ORDERED: ACETAMINOPHEN 325 MG TABLET/CAPLET (TYLENOL) PO NR (16:15)
[2016-10-24] MEDS: ONDANSETRON 4 MG/2 ML (SDV) Z0FRAN IVP PRN (21:04)
[2016-10-24] MEDS: ACETAMINOPHEN 325 MG TABLET/CAPLET (TYLENOL) PO PRN (21:04)
[2016-10-25] VITALS (25 sets, daily range): BP systolic 142–177; BP diastolic 78–97
[2016-10-25] MEDS: ACETAMINOPHEN 325 MG TABLET/CAPLET (TYLENOL) PO PRN (02:34)
[2016-10-25] MEDS: ONDANSETRON 4 MG/2 ML (SDV) Z0FRAN IVP PRN (02:37)
[2016-10-25 04:39] LABS: BASOPHILS % (AUTO) 0 % (0-10); EOSINOPHILS # (AUTO) 0.1 10^3/uL (0.0-0.3); EOSINOPHILS % (AUTO) 1 % (0-10); LYMPHOCYTES % (AUTO) 8 % (12-44); MEAN CORPUSCULAR HEMOGLOBIN 29 PG (25-34); MEAN CORPUSCULAR HGB CONC 33 G/DL (32-36); MEAN CORPUSCULAR VOLUME 87 FL (80-99); MEAN PLATELET VOLUME 11.2 FL (7.4-10.4); MONOCYTES # (AUTO) 1.7 X 10^3 (0.0-1.0); MONOCYTES % (AUTO) 14 % (0-12); NEUTROPHILS # (AUTO) 9.2 X 10^3 (1.8-7.8); NEUTROPHILS % (AUTO) 77 % (42-75); PLATELET COUNT 183 10^3/uL (130-400); RED CELL DISTRIBUTION WIDTH 13.6 % (10.0-14.5)
[2016-10-25 05:01] LABS: ALANINE AMINOTRANSFERASE 20 U/L (0-55); ALBUMIN 3.6 G/DL (3.2-4.5); ANION GAP 11 MMOL/L (5-14); ASPARTATE AMINO TRANSFERASE 18 U/L (5-34); BILIRUBIN,TOTAL 0.7 MG/DL (0.1-1.0); BLOOD UREA NITROGEN 7 MG/DL (7-18); BUN/CREATININE RATIO 9; CALCIUM 8.2 MG/DL (8.5-10.1); CARBON DIOXIDE 21 MMOL/L (21-32); CHLORIDE 104 MMOL/L (98-107); CREATININE SERUM 0.79 MG/DL (0.60-1.30); GFR ESTIMATED > 60; GLUCOSE 183 MG/DL (70-105); MAGNESIUM 1.5 MG/DL (1.8-2.4); PHOSPHORUS 2.7 MG/DL (2.3-4.7); POTASSIUM 3.5 MMOL/L (3.6-5.0); SODIUM 136 MMOL/L (135-145); TOTAL PROTEIN 6.2 G/DL (6.4-8.2)
[2016-10-25] MEDS: POTASSIUM CL 10MEQ/50ML IVPB 50 ML IV SCH ×3 (05:17→07:21)
[2016-10-25] MEDS: MAGNESIUM 1 GM/100 ML IVPB 100 ML IV SCH ×3 (05:17→10:01)
[2016-10-25] MEDS: KCL 20 MEQ TAB (K-DUR) PO SCH (05:18)
[2016-10-25] MEDS: ceFAZolin 2 GM IV (SDC ONLY) 50 ML IV SCH ×3 (05:25→21:52)
[2016-10-25] MEDS: LACTATED RINGERS 1,000 ML IV SCH ×2 (05:57→16:26)
[2016-10-25] MEDS ORDERED: PROMETHAZINE INJ 25 MG/ML (PHENERGAN) AMP ONE (06:05)
[2016-10-25] MEDS ORDERED: PROMETHAZINE INJ 25 MG/ML (PHENERGAN) AMP IVP ONE ×2 (06:15→06:45)
--- NOTE | 2016-10-25 07:08 | Pulmonary Consultation ---
History of Present Illness History of Present Illness Date of Consultation 10/25/16 07:02 Date of Admission History of Present Illness 56yo WM s/p laparoscopic left partial colon resection secondary to cecal mass. He is now recovering in ICU. Surgery was uncomplicated. PT is complaining of nausea he is getting zofran. is at bedside. I am consulted for pulmonary management. Allergies and Home Medications Allergies Coded Allergies: Poultry (Verified Allergy, Severe, ANAPHYLAXIS, 08/19/16) Yeast (Verified Allergy, Severe, ANAPHYLAXIS, 08/19/16) aspirin (Verified Allergy, Severe, ANAPHYLAXIS, 08/19/16) latex (Verified Allergy, Severe, HIVES, 08/19/16) wheat (Verified Allergy, Severe, ANAPHYLAXIS, 08/19/16) Influenza Virus Vaccines (Verified Allergy, Unknown, 10/22/16) banana (Verified Allergy, Unknown, 10/22/16) corn (Verified Allergy, Unknown, 10/22/16) egg (Verified Allergy, Unknown, 10/22/16) garlic (Verified Allergy, Unknown, 10/22/16) oats (Verified Allergy, Unknown, 10/22/16) onion (Verified Allergy, Unknown, 10/22/16) peanut (Verified Allergy, Unknown, 10/22/16) pepper (Verified Allergy, Unknown, 10/22/16) rice (Verified Allergy, Unknown, 10/22/16) shellfish derived (Verified Allergy, Unknown, 10/22/16) Uncoded Allergies: PAIN RELIEVERS (Allergy, Severe, ANAPHYLAXIS, 08/19/16) ANTIBIOTICS (Allergy, Unknown, 08/19/16) Home Medications Chlordiazepoxide/Clidinium Br 1 Each Capsule 1 CAP PO HS (Reported) Diphenhydramine HCl 25 Mg Capsule 25 MG PO TIDAC PRN PRN FOOD ALLERGIES ( Reported) Epinephrine 0.3 Mg/0.3 Ml Auto.injct 0.3 MG IJ UD (Reported) Fluconazole 100 Mg Tablet 100 MG PO DAILY (Reported) FILLED 10/09/16 #14 FOR A 14 DAY THERAPY Loperamide HCl 2 Mg Tablet 2 MG PO Q8H PRN PRN DIARRHEA (Reported) Montelukast Sodium 10 Mg Tablet 10 MG PO DAILY (Reported) Omeprazole 20 Mg Tablet.dr 20 MG PO BID (Reported) Past Ezdsxuy-Puzoio-Bbhcqw Hx Patient Social History Alcohol Use: Denies Use Recreational Drug Use: No Smoking Status: Never a Smoker Recent Foreign Travel: No Contact w/Someone Who Travel: No Recent Infectious Disease Expo: No Recent Hopitalizations: No Physical Abuse Screen: No Sexual Abuse: No Immunizations Up To Date Tetanus Booster (TDap): Unknown Seasonal Allergies Seasonal Allergies: Yes (SEVERE ALLERGIES ) Surgeries HX Surgeries: No Respiratory Hx Respiratory Disorders: Yes Respiratory Disorders: Asthma Cardiovascular Hx Cardiac Disorders: No Neurological Hx Neurological Disorders: No Reproductive System Hx Reproductive Disorders: No Sexually Transmitted Disease: No HIV/AIDS: No Genitourinary Hx Genitourinary Disorders: No Gastrointestinal Hx Gastrointestinal Disorders: Yes Gastrointestinal Disorders: Chronic Diarrhea, Irritable Bowel Musculoskeletal Hx Musculoskeletal Disorders: No Endocrine Hx Endocrine Disorders: Yes Endocrine Disorders: Diabetes, Non-Insulin dep HEENT HX ENT Disorders: Yes (GLASSES, DENTURES) Loss of Vision: Bilateral Hearing Impairment: Denies Cancer Hx Cancer: No Cancer: Colon Psychosocial Hx Psychiatric Problems: Yes (RELATED TO PROCEDURE) Behavioral Health Disorders: Anxiety Integumentary HX Skin/Integumentary Disorder: Yes (HIVES) Blood Transfusions Hx Blood Disorders: No Adverse Reaction to a Blood Tr: No (N/A) Family Medical History Family Medial History: Cardiovascular disease 19 FATHER Colon cancer 19 FATHER Diabetes mellitus 19 FATHER FH: ovarian cancer 19 MOTHER Hypertension 19 FATHER Myocardial infarction Review of Systems Constitutional: : Malaise: WeaknessNo: Chills, Fever, Other, Sweats Eyes: No: Conjunctivae inflammation, Eyelid inflammation, Other, Pain, Redness , Vision change ENT: No: Ear discharge, Ear pain, Mouth pain, Mouth swelling, Nose congestion, Nose discharge, Nose pain, Other, Throat pain, Throat swelling Respiratory: No: Cough, Dry, Hemoptysis, Other, Pleuritic Pain, SOB with excertion, Shortness of breath, Sputum, Wheezing, Wheezing Cardiovascular: No: Chest Pain, Edema, Lt Headedness, Orthopnea, Other, Palpitations, Paroxysmal Noc. Dyspnea Gastrointestinal: : Abdominal Pain: Nausea Genitourinary: No Dysuria, No Frequency, No Incontinence, No Hematuria, No Retention, No Other Exam Exam Vital Signs Date Time Temp Pulse Resp B/P Pulse Ox O2 Delivery O2 Flow Rate FiO2 10/25/16 06:44 Room Air 10/25/16 06:25 18 10/25/16 06:00 93 25 167/89 95 Room Air 10/25/16 05:36 99.9 10/25/16 05:00 95 40 161/89 95 Room Air 10/25/16 04:00 100.0 10/25/16 04:00 96 Room Air 10/25/16 04:00 96 169/89 94 Room Air 10/25/16 03:00 95 29 157/90 95 Room Air 10/25/16 02:36 95 Room Air 10/25/16 02:00 101 55 165/90 94 Room Air 10/25/16 01:00 103 10/25/16 01:00 100 24 171/88 94 Room Air 10/25/16 00:00 95 Room Air 10/25/16 00:00 100.6 102 20 159/95 95 Room Air 10/24/16 23:00 102 42 166/87 96 Room Air 10/24/16 22:20 100.0 10/24/16 22:00 101 163/85 96 Room Air 10/24/16 21:46 93 Room Air 10/24/16 21:04 102.1 10/24/16 21:00 101 29 157/91 95 Room Air 10/24/16 20:00 96 Room Air 10/24/16 20:00 102.1 102 22 153/92 96 Room Air 10/24/16 19:00 105 10/24/16 19:00 104 26 166/94 96 Room Air 10/24/16 18:00 105 32 159/90 96 Room Air 10/24/16 18:00 100.8 10/24/16 17:00 100.9 10/24/16 17:00 101 21 163/85 97 Room Air 10/24/16 17:00 100.9 10/24/16 16:27 101.8 10/24/16 16:00 101.8 10/24/16 16:00 97 Room Air 10/24/16 16:00 98 148/87 97 Room Air 10/24/16 15:00 96 23 156/89 97 Room Air 10/24/16 14:00 93 16 152/85 96 Room Air 10/24/16 13:00 94 16 145/88 97 Room Air 10/24/16 13:00 90 10/24/16 12:00 80 35 143/85 97 Room Air 10/24/16 11:35 80 10/24/16 11:25 98.6 10/24/16 11:25 97 Room Air I & O 10/25/16 07:00 Intake Total 5150 ml Output Total 8005 ml Balance -2855 ml General Appearance: No Apparent Distress Anxious Neck: Full Range of Motion Non Tender Supple Respiratory: Chest Non Tender Lungs Clear Normal Breath Sounds No Accessory Muscle Use No Respiratory Distress Cardiovascular: Regular Rate, Rhythm No Edema Gastrointestinal: normal bowel sounds non tender soft no organomegaly no pulsatile mass Neurologic/Psychiatric: Alert Oriented x3 Skin: Normal Color Warm/Dry Lymphatic: No Adenopathy Results Lab Laboratory Tests 10/25/16 03:34 Assessment/Plan Assessment/Plan -Colon mass s/p laparoscopic assisted right colon resection -pain management -Continue monitoring -Sinus tach -monitor fever with leukocytosis -continue Ancef Flagyl Clinical Quality Measures DVT/VTE Risk/Contraindication: Risk Factor Score Per Nursin RFS Level Per Nursing on Admit: 3=High KHADIJAH MELENDREZ DO Oct 25, 2016 07:07
[2016-10-25] MEDS: FAMOTIDINE 20MG/2ML IV (PEPCID) IVP SCH (08:15)
--- NOTE | 2016-10-25 08:28 | Progress Note ---
Subjective Subjective/Events-last exam Patient resting in bed. Even respirations. Was nauseated early today, Zofran not effective. One time order of Phenergan was ordered with nausea resolving at this time. Fever over night but now around 99. Sites from incision, not draining. Abdomen soft to palpation, but generalized tenderness. Objective Exam Vital Signs Date Time Temp Pulse Resp B/P Pulse Ox O2 Delivery O2 Flow Rate FiO2 10/25/16 08:09 99.1 92 14 168/82 97 Room Air 10/25/16 07:00 88 10/25/16 06:44 Room Air 10/25/16 06:25 18 10/25/16 06:00 93 25 167/89 95 Room Air 10/25/16 05:36 99.9 10/25/16 05:00 95 40 161/89 95 Room Air 10/25/16 04:00 100.0 10/25/16 04:00 96 Room Air 10/25/16 04:00 96 169/89 94 Room Air 10/25/16 03:00 95 29 157/90 95 Room Air 10/25/16 02:36 95 Room Air 10/25/16 02:00 101 55 165/90 94 Room Air 10/25/16 01:00 103 10/25/16 01:00 100 24 171/88 94 Room Air 10/25/16 00:00 95 Room Air 10/25/16 00:00 100.6 102 20 159/95 95 Room Air 10/24/16 23:00 102 42 166/87 96 Room Air 10/24/16 22:20 100.0 10/24/16 22:00 101 163/85 96 Room Air 10/24/16 21:46 93 Room Air 10/24/16 21:04 102.1 10/24/16 21:00 101 29 157/91 95 Room Air 10/24/16 20:00 96 Room Air 10/24/16 20:00 102.1 102 22 153/92 96 Room Air 10/24/16 19:00 105 10/24/16 19:00 104 26 166/94 96 Room Air 10/24/16 18:00 105 32 159/90 96 Room Air 10/24/16 18:00 100.8 10/24/16 17:00 100.9 10/24/16 17:00 101 21 163/85 97 Room Air 10/24/16 17:00 100.9 10/24/16 16:27 101.8 10/24/16 16:00 101.8 10/24/16 16:00 97 Room Air 10/24/16 16:00 98 148/87 97 Room Air 10/24/16 15:00 96 23 156/89 97 Room Air 10/24/16 14:00 93 16 152/85 96 Room Air 10/24/16 13:00 94 16 145/88 97 Room Air 10/24/16 13:00 90 10/24/16 12:00 80 35 143/85 97 Room Air 10/24/16 11:35 80 10/24/16 11:25 98.6 10/24/16 11:25 97 Room Air I & O 10/25/16 07:00 Intake Total 5150 ml Output Total 8005 ml Balance -2855 ml Capillary Refill : General Appearance: No Apparent Distress Neck: Non Tender Respiratory: Chest Non Tender No Accessory Muscle Use No Respiratory Distress Cardiovascular: Regular Rate, Rhythm No Edema Gastrointestinal: soft no organomegaly tenderness (generalized tenderness) Extremity: No Calf Tenderness No Pedal Edema Neurologic/Psychiatric: Alert Oriented x3 Skin: Normal Color Warm/Dry Other (incisions to abdomen dry. No drainage.) Lymphatic: No Adenopathy Results Lab Laboratory Tests Test 10/24/16 18:20 10/25/16 00:51 10/25/16 03:34 Range/Units Glucometer 184 H 171 H 70-110 MG/DL Alanine Aminotransferase (ALT/SGPT) 20 0-55 U/L Albumin 3.6 3.2-4.5 G/DL Alkaline Phosphatase 63 40-136 U/L Anion Gap 11 5-14 MMOL/L Aspartate Amino Transf (AST/SGOT) 18 5-34 U/L BUN/Creatinine Ratio 9 Basophils # (Auto) 0.0 0.0-0.1 10^3/uL Basophils (%) (Auto) 0 0-10 % Blood Urea Nitrogen 7 7-18 MG/DL Calcium Level 8.2 L 8.5-10.1 MG/DL Carbon Dioxide Level 21 21-32 MMOL/L Chloride Level 104 98-107 MMOL/L Creatinine 0.79 0.60-1.30 MG/DL Eosinophils # (Auto) 0.1 0.0-0.3 10^3/uL Eosinophils (%) (Auto) 1 0-10 % Estimat Glomerular Filtration Rate > 60 Glucose Level 183 H 70-105 MG/DL Hematocrit 42 40-54 % Hemoglobin 14.0 13.3-17.7 G/DL Lymphocytes # (Auto) 1.0 1.0-4.0 X 10^3 Lymphocytes (%) (Auto) 8 L 12-44 % Magnesium Level 1.5 L 1.8-2.4 MG/DL Mean Corpuscular Hemoglobin 29 25-34 PG Mean Corpuscular Hemoglobin Concent 33 32-36 G/DL Mean Corpuscular Volume 87 80-99 FL Mean Platelet Volume 11.2 H 7.4-10.4 FL Monocytes # (Auto) 1.7 H 0.0-1.0 X 10^3 Monocytes (%) (Auto) 14 H 0-12 % Neutrophils # (Auto) 9.2 H 1.8-7.8 X 10^3 Neutrophils (%) (Auto) 77 H 42-75 % Phosphorus Level 2.7 2.3-4.7 MG/DL Platelet Count 183 130-400 10^3/uL Potassium Level 3.5 L 3.6-5.0 MMOL/L Red Blood Count 4.90 4.35-5.85 10^6/uL Red Cell Distribution Width 13.6 10.0-14.5 % Sodium Level 136 135-145 MMOL/L Total Bilirubin 0.7 0.1-1.0 MG/DL Total Protein 6.2 L 6.4-8.2 G/DL White Blood Count 12.0 H 4.3-11.0 10^3/uL Laboratory Tests 10/24/16 18:20: Glucometer 184H 10/25/16 00:51: Glucometer 171H 10/25/16 03:34: Alanine Aminotransferase (ALT/SGPT) 20, Albumin 3.6, Alkaline Phosphatase 63, Anion Gap 11, Aspartate Amino Transf (AST/SGOT) 18, BUN/Creatinine Ratio 9, Basophils # (Auto) 0.0, Basophils (%) (Auto) 0, Blood Urea Nitrogen 7, Calcium Level 8.2L, Carbon Dioxide Level 21, Chloride Level 104, Creatinine 0.79, Eosinophils # (Auto) 0.1, Eosinophils (%) (Auto) 1, Estimat Glomerular Filtration Rate > 60, Glucose Level 183H, Hematocrit 42, Hemoglobin 14.0, Lymphocytes # (Auto) 1.0, Lymphocytes (%) (Auto) 8L, Magnesium Level 1.5L, Mean Corpuscular Hemoglobin 29, Mean Corpuscular Hemoglobin Concent 33, Mean Corpuscular Volume 87, Mean Platelet Volume 11.2H, Monocytes # (Auto) 1.7H, Monocytes (%) (Auto) 14H, Neutrophils # (Auto) 9.2H, Neutrophils (%) (Auto) 77H , Phosphorus Level 2.7, Platelet Count 183, Potassium Level 3.5L, Red Blood Count 4.90, Red Cell Distribution Width 13.6, Sodium Level 136, Total Bilirubin 0.7, Total Protein 6.2L, White Blood Count 12.0H Assessment/Plan Assessment/Plan Assessment/Plan post status laparoscopic hand assisted right colon resection hepatic flexure mobilization secondary to cecal mass Nausea We will continue to monitor labs and vital signs. No Flatus or BM at this time. Will start on clears with sips. Encouraged use of IS, 10 times an hour while awake. DC carlisle. GI DVT prophylaxis. Miguelito- Patient with some nausea. Pain controlled. Fever. Not using IS well. No flatus or bm. urine output adequate general no acute distress heart regular lungs nonlabored abdomen incisions c/d/i mild diffuse tenderness ext nontender s/p right colectomy, fever leukocytosis, continue abx, increase activity, incentive spirometer, dvt gi prophylaxis can have sips of clears Clinical Quality Measures DVT/VTE Risk/Contraindication: Risk Factor Score Per Nursin RFS Level Per Nursing on Admit: 3=High KRYSTINA WREN APRN Oct 25, 2016 8:28 am RENAN DECKER DO Oct 25, 2016 11:31 am
--- NOTE | 2016-10-25 08:48 | Diagnostic Imaging Report ---
INDICATION: Hemicolectomy, postop fever Portable chest 2:54 AM Heart size and pulmonary vascularity are normal. Lungs are clear. There are no effusions or pneumothoraces. There is no evidence of intraperitoneal free air. IMPRESSION: Negative chest Dictated by: Dictated on workstation # [id number]
--- NOTE | 2016-10-25 09:37 | OPERATIVE REPORT ---
PROCEDURE PHYSICIAN: RENAN DECKER DATE OF PROCEDURE: 10/24/2016 PREOPERATIVE DIAGNOSIS: Cecal cancer. POSTOPERATIVE DIAGNOSIS: Cecal cancer. PROCEDURE: Laparoscopic hand-assisted right colon resection with mobilization of the hepatic flexure, SURGEON: Miguelito. ABRASIVE COATING MACHINE OPERATOR: Dr. Chai Montelongo, to assist in retraction, dissection, and closure ESTIMATED BLOOD LOSS: Minimal. COMPLICATIONS: None. 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 He understands the risks and benefits of the procedure and wishes to proceed with procedure. Consent was signed on the chart. PROCEDURE: The patient was taken to the operating suite, he was prepped and draped in the sterile fashion. A surgical pause was performed. A midline incision was made just at the umbilicus in order for GelPort to be placed. Once the abdomen was entered the abdomen was inspected. There were some adhesions down the right lower quadrant. The GelPort was placed. Two 12 mm trocars were placed; one in the right lower quadrant and one in the right upper quadrant and these were done under direct visualization through the incision. Once in place and the abdomen was insufflated. The adhesions in the right lower quadrant were then taken down with cautery and blunt dissection. Once these were taken down, the cecum was elevated and the colon was mobilized along the white line of Toldt using spatula cautery. Once mobilized, had assist in mobilization, the third 12 mm trocar was placed in the left lower quadrant to aid in visualization and dissection. Once the dissection of mobilization of the white line of Toldt, and further mobilization performed taking down the hepatic flexure. GelPort cover was removed and the right colon was brought up through the incision. A FAINA blue linear stapler was fired proximal to the ileocecal valve after the ileum was dissected around with a hemostat and was fired across the ileum. The right colon was brought out as well and dissected around using a hemostat. A FAINA linear blue staple load was then fired across the colon distal to where the mass was palpated. Using a LigaSure a wedge was created removing the specimen and the mesentery to the ending portion of the ileum and also the cecum and a portion of the right colon. Within this, there was a larger palpable node present. In removing the specimen there was a small venous bleed at the mesentery which a 2-0 silk suture in a [id number] fashion was used to achieve hemostasis. The hepatic flexure was freed up slightly more allowing less tension taking down the majority of the hepatic flexure. The small bowel then brought to the colon and a side to side anastomosis was created using a FAINA linear stapler. A crotch stitch was placed using 2-0 silk suture. Due to a dog-ear of the small bowel, LigaSure was used to divide the mesentery and then another FAINA blue staple load was fired across the small bowel removing the dog-ear small bowel. The mesentery was closed using 2-0 silk suture. The anastomosis was patent, and the bowel appeared viable. Hemostasis had been achieved. The bowel was placed back within the abdomen. Copious amounts of irrigation was used to irrigate the abdomen and suctioned. The trocars were removed and fascial defects were closed internally using 0 Vicryl on a UR size needle. All trocars were removed including the GelPort and the fascia was then closed using 1-0 loop PDS in a running fashion. The wound was irrigated with copious amounts of irrigation and the skin was then stapled closed. A total of 20 mL of 0.5% Marcaine 1% lidocaine at a 50:50 ratio was used to anesthetize all incisions and trocar sites. The areas were then washed and dried and sterile bandages were applied. The patient tolerated procedure well without any complications and taken to recovery room in stable condition. Job ID: [id number] Dictated Date: 10/24/2016 17:07:10 Hospice Care Consultant Date: 10/25/2016 09:07:34 / ирина ADAMS
[2016-10-25] MEDS: PROMETHAZINE INJ 25 MG/ML (PHENERGAN) AMP IVP PRN ×2 (10:58→18:21)
--- NOTE | 2016-10-25 13:13 | Physical Therapy Evaluation ---
PT Evaluation-General Medical Diagnosis Admission Date 10/24/16 Medical Diagnosis: cecal mass s/p partial colon resection Onset Date: Oct 24, 2016 Therapy Diagnosis Therapy Diagnosis: decreased functional mobility Height/Weight Height (Feet): 6 Height (Inches): 4.00 Weight (Pounds): 217 Weight (Ounces): 3.0 Precautions Precautions/Isolations: Standard Precautions Weight Bear Status Weight Bearing Restriction: Full Weight Bearing Location Restriction: LE Bilateral Referral Physician: Mateo Farley DO Reason for Referral: Evaluation/Treatment Medical History Pertinent Medical History: DM, GERD Additional Medical History multiple medication and food allergies, asthma, chronic diarrhea, IBS, colon CA , anxiety Current History Pt s/p lap partial colon resection for cecal mass Reviewed History: Yes Social History Home: Single Level Current Living Status: Spouse Entry Into Home: Stairs Without Railing PT Steps Into Home: 3 Prior/Core FIM Prior Level of Function Functional [place] Measure 0=Not Assessed/NA 4=Minimal Assistance 1=Total Assistance 5=Supervision or Setup 2=Maximal Assistance 6=Modified [place] 3=Moderate Assistance 7=Complete [place] Bed Mobility: 7 Transfers (B,C,W/C) (FIM): 7 Gait: 7 PT Evaluation-Current Subjective Pt agreeable. Anxious about getting up but agreeable. 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 Goals Home with spouse Objective Patient Orientation: Person, Place, Time, Situation Problem Solving: Good Attachments: SCD's, IV Multiple lines ROM/Strength ROM Upper Extremities WFL for mobility ROM Lower Extremities WFL for mobility Strength Upper Extremities WFL for mobility Strenght Lower Extremities WFL for mobility Integumentary/Posture Integumentary See nurse's notes Posture Unremarkable Neuromuscular (Tone, Coordination, Reflexes) Intact Sensory Vision: Wears Glasses Hearing: Functional Sensation Right Upper Extremit: Intact Sensation Left Upper Extremity: Intact Sensation Right Lower Extremit: Intact Sensation Left Lower Extremity: Intact Transfers Functional [place] Measure 0=Not Assessed/NA 4=Minimal Assistance 1=Total Assistance 5=Supervision or Setup 2=Maximal Assistance 6=Modified [place] 3=Moderate Assistance 7=Complete [place] Transfers (B, C, W/C) (FIM): 4 Rollin Supine to/from Sit: 4 Sit to/from Stand: 4 bed t/f WC(FIM only if WC use): 4 (with FWW) CGA with all TFRs. Skilled VCS for log-rolling and sequencing. Gait Mode of Locomotion: Walk Anticipated Mode of Locomotion: Walk Gait (FIM): 2 Distance (FIM): 1=up to 49 ft Distance: 3' Gait Level of Assist: 4 Gait Persons Needed: 1 Gait Assistive Device: FWW Comments/Gait Description Bed->chair with FWW, VCS for safety and assist with line management. Balance Sitting Static: Normal Sitting Dynamic: Normal Standing Static: Good Standing Dynamic: Good Treatment Eval. Pt up in chair with all needs met. Nursing notified of Pt level of assist required. Assessment/Needs Pt is a 56 y.o. male s/p lap colon resection. Pt would benefit from skilled PT to restore (I) with functional mobility. 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 PT Plan Problem List Problem List: Activity Tolerance, Functional Strength, Balance, Gait, Transfer , Bed Mobility Treatment/Plan Treatment Plan: Continue Plan of Care Treatment Plan: Bed Mobility, Education, Functional Activity [place], Functional Strength, Gait, Therapeutic Exercise, Transfers Treatment Duration: Nov 01, 2016 # of days/week 5-6 Visits Per Week: 5-6 Pt/Family Agrees w/Plan: Yes Safety Risks/Education Patient Education: Transfer Techniques Teaching Recipient: Patient, Family Teaching Methods: Demonstration, Discussion Response to Teaching: Verbalize Understanding, Return Demonstration Educated regarding log-rolling and safety with TFRs. Also educated on the importance of increasing time out of bed to decrease complications of immobility. Discharge Recommendations Therapy D/C Recommendations: Home w/ Family Support Barriers to Progress None Time/GCodes Time In: 0955 Time Out: 1016 Total Billed Treatment Time: 21 Total Billed Treatment 1, EVLOWC G Codes Necessary: NATHALIA Jaquez DPT Oct 25, 2016 13:12
[2016-10-25 13:44] LABS: BILIRUBIN,URINE NEGATIVE (NEGATIVE); KETONES,URINE 3+ (NEGATIVE); LEUKOCYTE ESTERASE ,URINE 1+ (NEGATIVE); NITRITE,URINE NEGATIVE (NEGATIVE); PH,URINE 6.5 (5-9); PROTEIN,URINE NEGATIVE (NEGATIVE); UROBILINOGEN,URINE NORMAL (NORMAL)
[2016-10-25 13:54] LABS: WBC,URINE 0-2 /HPF
--- NOTE | 2016-10-25 14:17 | Anesthesia-General Post-Op ---
General Patient Condition Mental Status/LOC: Same as Preop Cardiovascular: Satisfactory Nausea/Vomiting: Present Respiratory: Satisfactory Pain: Controlled Complications: Absent Post Op Complications Complications None Follow Up Care/Instructions Patient Instructions None needed. Anesthesia/Patient Condition Patient Condition Patient is doing well, stable vital signs, reported nausea; however, Phenergan IV helping. No complications reported per nursing. ARY DOWNING CRNA Oct 25, 2016 14:17
[2016-10-25] MEDS: fentaNYL PCA 300 MCG/30 ML VIAL IV PRN (15:21)
[2016-10-26] VITALS (22 sets, daily range): BP systolic 126–174; BP diastolic 74–97
[2016-10-26] MEDS: LACTATED RINGERS 1,000 ML IV SCH ×3 (00:57→18:50)
[2016-10-26] MEDS: PROMETHAZINE INJ 25 MG/ML (PHENERGAN) AMP IVP PRN ×2 (02:20→09:24)
[2016-10-26 04:22] LABS: BASOPHILS % (AUTO) 0 % (0-10); EOSINOPHILS # (AUTO) 0.1 10^3/uL (0.0-0.3); EOSINOPHILS % (AUTO) 0 % (0-10); LYMPHOCYTES # (AUTO) 0.9 X 10^3 (1.0-4.0); LYMPHOCYTES % (AUTO) 6 % (12-44); MEAN CORPUSCULAR HEMOGLOBIN 28 PG (25-34); MEAN CORPUSCULAR HGB CONC 32 G/DL (32-36); MEAN CORPUSCULAR VOLUME 87 FL (80-99); MEAN PLATELET VOLUME 11.1 FL (7.4-10.4); MONOCYTES # (AUTO) 1.3 X 10^3 (0.0-1.0); MONOCYTES % (AUTO) 9 % (0-12); NEUTROPHILS # (AUTO) 11.3 X 10^3 (1.8-7.8); NEUTROPHILS % (AUTO) 84 % (42-75); PLATELET COUNT 214 10^3/uL (130-400); RED BLOOD COUNT 5.22 10^6/uL (4.35-5.85); RED CELL DISTRIBUTION WIDTH 13.5 % (10.0-14.5); WHITE BLOOD COUNT 13.5 10^3/uL (4.3-11.0)
[2016-10-26 04:44] LABS: ANION GAP 12 MMOL/L (5-14); BLOOD UREA NITROGEN 9 MG/DL (7-18); BUN/CREATININE RATIO 11; CALCIUM 9.1 MG/DL (8.5-10.1); CARBON DIOXIDE 25 MMOL/L (21-32); CHLORIDE 103 MMOL/L (98-107); CREATININE SERUM 0.85 MG/DL (0.60-1.30); GFR ESTIMATED > 60; GLUCOSE 173 MG/DL (70-105); MAGNESIUM 2.1 MG/DL (1.8-2.4); PHOSPHORUS 2.3 MG/DL (2.3-4.7); POTASSIUM 3.8 MMOL/L (3.6-5.0); SODIUM 140 MMOL/L (135-145)
[2016-10-26] MEDS: POTASSIUM CL 10MEQ/50ML IVPB 50 ML IV SCH (05:07)
[2016-10-26] MEDS: MAGNESIUM 1 GM/100 ML IVPB 100 ML IV SCH (05:07)
[2016-10-26] MEDS: KCL 20 MEQ TAB (K-DUR) PO SCH (05:08)
[2016-10-26] MEDS: ceFAZolin 2 GM IV (SDC ONLY) 50 ML IV SCH ×2 (05:31→15:00)
[2016-10-26] MEDS: FAMOTIDINE 20MG/2ML IV (PEPCID) IVP SCH (09:21)
--- NOTE | 2016-10-26 10:51 | Physical Therapy Daily Note ---
PT Daily Note-Current Subjective Pt. up in chair with spouse present, agrees to therapy. He reports "a little" incisional pain, does not give objective pain rating. Mental Status Patient Orientation: Person, Place, Time, Situation Attachments: IV Transfers Functional [place] Measure 0=Not Assessed/NA 4=Minimal Assistance 1=Total Assistance 5=Supervision or Setup 2=Maximal Assistance 6=Modified [place] 3=Moderate Assistance 7=Complete IndependenceIRFPAI Quality Coding Scale 6 Independent with activity with or without an assistive device 5 Patient requires set up or clean up by helper. Patient completes activity by themselves 4 Supervision or touching assist (CGA). [place] provide cues , steadying assist 3 The helper provides less than half the effort to complete the activity 2 The helper provides more than half the effort to complete the activity 1 Dependent. The helper does all the effort to complete an activity 7 Patient refused to complete or attempt activity 9 The patient did not perform the activity before the current illness or injury 88 Not attempted due to Medical conditions or safety concerns Transfers (B, C, W/C) (FIM): 4 Sit to/from Stand: 4 Gait Training Gait (FIM): 4 Distance (FIM): 2=379-93 ft Distance: 125 ft Gait Level of Assist: 4 Gait Persons Needed: 1 Gait Assistive Device: FWW slow gait speed but steady Treatments gait Assessment Current Status: Good Progress Pt. did well with gait training, no balance deficits but fatigues quickly. Pt. up in chair post session with spouse present and all needs met. 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 PT [facility] Goals Time Frame: Nov 01, 2016 Transfers (B,C,W/C) (FIM): 7 Gait (FIM): 7 Gait distance (FIM): 3=150 ft Distance: 150' Gait Level of Assist: 7 Gait Assistive Device: None Stairs (FIM): 5 # of Steps: 4 Stairs Level Of Assist: 6 PT Plan Treatment/Plan Treatment Plan: Continue Plan of Care Treatment Plan: Bed Mobility, Education, Functional Activity [place], Functional Strength, Gait, Therapeutic Exercise, Transfers Treatment Duration: Nov 01, 2016 Visits Per Week: 5-6 Time/GCodes Time In: 1025 Time Out: 1040 Total Billed Treatment Time: 15 Total Billed Treatment 1, GT 15' IWONA,UMESH PT Oct 26, 2016 10:51
--- NOTE | 2016-10-26 11:01 | Progress Note ---
Subjective Subjective/Events-last exam Tmax 100.7 Pain controlled. Some nausea no emesis. No flatus no bm. Feels like phlegm in throat can't clear. Using incentive spirometer but limited. Got up to chair some this morning. Slight redness around incision. Objective Exam Vital Signs Date Time Temp Pulse Resp B/P Pulse Ox O2 Delivery O2 Flow Rate FiO2 10/26/16 10:00 93 29 159/97 97 Room Air 10/26/16 09:21 97 Room Air 10/26/16 09:00 91 31 144/89 97 Room Air 10/26/16 08:00 92 15 164/91 96 Room Air 10/26/16 07:00 98 26 151/86 97 Room Air 10/26/16 07:00 102 10/26/16 06:00 96 16 164/93 95 Room Air 10/26/16 05:40 14 10/26/16 05:00 96 16 167/91 97 Room Air 10/26/16 04:00 101 15 160/88 96 Room Air 10/26/16 04:00 96 Room Air 10/26/16 03:40 100.5 10/26/16 03:00 96 17 157/87 95 Room Air 10/26/16 02:21 97 Room Air 10/26/16 02:00 93 17 153/90 95 Room Air 10/26/16 01:02 101 10/26/16 01:00 91 16 157/83 97 Room Air 10/26/16 00:00 96 14 158/84 96 Room Air 10/25/16 23:40 98 Room Air 10/25/16 23:35 100.2 10/25/16 23:00 95 16 165/94 96 Room Air 10/25/16 22:27 96 Room Air 10/25/16 22:00 92 15 145/78 96 Room Air 10/25/16 21:00 98 6 142/84 96 Room Air 10/25/16 20:00 93 18 157/85 96 Room Air 10/25/16 19:52 97 Room Air 10/25/16 19:45 97 Room Air 10/25/16 19:00 100.2 91 19 155/79 97 Room Air 10/25/16 19:00 89 10/25/16 18:20 100.3 10/25/16 18:00 95 13 150/80 95 Room Air 10/25/16 18:00 10 10/25/16 17:00 144/82 10/25/16 16:29 100.8 99 10 166/84 98 Room Air 10/25/16 16:15 Room Air 10/25/16 16:00 92 16 166/84 97 Room Air 10/25/16 15:21 16 10/25/16 15:08 100 Room Air 10/25/16 15:00 97 22 149/78 96 Room Air 10/25/16 14:00 96 14 155/79 97 Room Air 10/25/16 13:00 91 16 164/97 95 Room Air 10/25/16 13:00 89 10/25/16 12:37 99.8 10/25/16 12:30 100.1 94 26 157/88 97 Room Air 10/25/16 12:00 Room Air 10/25/16 11:11 Room Air 10/25/16 11:00 94 19 177/96 94 Room Air I & O 10/26/16 07:00 Intake Total 2485 ml Output Total 3400 ml Balance -915 ml Capillary Refill : General Appearance: No Apparent Distress WD/WN Chronically ill HEENT: PERRL/EOMI Normal ENT Inspection Pharynx Normal Neck: Non Tender Supple Respiratory: Chest Non Tender Lungs Clear Normal Breath Sounds No Accessory Muscle Use No Respiratory Distress Cardiovascular: Regular Rate, Rhythm No Edema No Gallop No JVD No Murmur Normal Peripheral Pulses Gastrointestinal: soft no organomegaly tenderness (generalized tenderness slight redness around inferior portion of midline incision) Extremity: Normal Capillary Refill Normal Inspection Normal Range of Motion Non Tender No Calf Tenderness No Pedal Edema Neurologic/Psychiatric: Alert Oriented x3 No Motor/Sensory Deficits Normal Mood/Affect Skin: Normal Color Warm/Dry Lymphatic: No Adenopathy Results Lab Laboratory Tests 10/25/16 12:26: Glucometer 196H 10/25/16 13:05: Urine Bacteria NEGATIVE, Urine Bilirubin NEGATIVE, Urine Casts NONE, Urine Clarity CLEAR, Urine Color YELLOW, Urine Crystals NONE, Urine Culture Indicated NO, Urine Glucose (UA) 3+H, Urine Ketones 3+H, Urine Leukocyte Esterase 1+H, Urine Mucus NEGATIVE, Urine Nitrite NEGATIVE, Urine Protein NEGATIVE, Urine RBC 5-10H, Urine RBC (Auto) 5+H, Urine Specific [place] 1.010L, Urine Squamous Epithelial Cells NONE, Urine Urobilinogen NORMAL, Urine WBC 0-2, Urine pH 6.5 10/25/16 14:12: Lactic Acid Level 1.4 10/25/16 18:32: Glucometer 145H 10/25/16 23:47: Glucometer 166H 10/26/16 03:38: Anion Gap 12, BUN/Creatinine Ratio 11, Basophils # (Auto) 0.0, Basophils (%) ( Auto) 0, Blood Urea Nitrogen 9, Calcium Level 9.1, Carbon Dioxide Level 25, Chloride Level 103, Creatinine 0.85, Eosinophils # (Auto) 0.1, Eosinophils (%) ( Auto) 0, Estimat Glomerular Filtration Rate > 60, Glucose Level 173H, Hematocrit 45, Hemoglobin 14.6, Lymphocytes # (Auto) 0.9L, Lymphocytes (%) (Auto ) 6L, Magnesium Level 2.1, Mean Corpuscular Hemoglobin 28, Mean Corpuscular Hemoglobin Concent 32, Mean Corpuscular Volume 87, Mean Platelet Volume 11.1H, Monocytes # (Auto) 1.3H, Monocytes (%) (Auto) 9, Neutrophils # (Auto) 11.3H, Neutrophils (%) (Auto) 84H, Phosphorus Level 2.3, Platelet Count 214, Potassium Level 3.8, Red Blood Count 5.22, Red Cell Distribution Width 13.5, Sodium Level 140, White Blood Count 13.5H Assessment/Plan Assessment/Plan Assessment/Plan post status laparoscopic hand assisted right colon resection hepatic flexure mobilization secondary to cecal mass Nausea Patient with midline erythema, two dorcas removed from bottom and old blood came, no purulent material continue to monitor Continue to antibiotics due to leukocytosis and fever increase activity IS DVT GI prophylaxis Clinical Quality Measures DVT/VTE Risk/Contraindication: Risk Factor Score Per Nursin RFS Level Per Nursing on Admit: 3=High RENAN DECKER DO Oct 26, 2016 11:01
[2016-10-26] MEDS: metroNIDAZOLE 500MG/100ML IVPB 100 ML IV SCH ×2 (16:33→20:49)
[2016-10-26] MEDS ORDERED: PIPERACILLIN/TAZO 4.5 GM VIAL (ZOSYN) IV ONE (20:42)
[2016-10-26] MEDS ORDERED: NORMAL SALINE (BAXTER MINI) 100 ML IV ONE (20:42)
[2016-10-26] MEDS: PIPERACILLIN SODIUM/TAZOBACTAM 4.5 GM in NORMAL SALINE (BAXTER MINI) 100 ML IV SCH (20:50)
[2016-10-27] VITALS (14 sets, daily range): BP systolic 134–160; BP diastolic 72–91
[2016-10-27] MEDS: LACTATED RINGERS 1,000 ML IV SCH ×2 (04:02→10:15)
[2016-10-27] MEDS ORDERED: PIPERACILLIN/TAZO 4.5 GM VIAL (ZOSYN) IV ONE (04:34)
[2016-10-27] MEDS ORDERED: NORMAL SALINE (BAXTER MINI) 100 ML IV ONE (04:34)
[2016-10-27 04:36] LABS: BASOPHILS % (AUTO) 0 % (0-10); EOSINOPHILS # (AUTO) 0.3 10^3/uL (0.0-0.3); EOSINOPHILS % (AUTO) 2 % (0-10); LYMPHOCYTES # (AUTO) 1.4 X 10^3 (1.0-4.0); LYMPHOCYTES % (AUTO) 12 % (12-44); MEAN CORPUSCULAR HEMOGLOBIN 28 PG (25-34); MEAN CORPUSCULAR HGB CONC 33 G/DL (32-36); MEAN CORPUSCULAR VOLUME 87 FL (80-99); MONOCYTES # (AUTO) 1.2 X 10^3 (0.0-1.0); MONOCYTES % (AUTO) 11 % (0-12); NEUTROPHILS # (AUTO) 8.5 X 10^3 (1.8-7.8); NEUTROPHILS % (AUTO) 75 % (42-75); PLATELET COUNT 200 10^3/uL (130-400); RED BLOOD COUNT 4.36 10^6/uL (4.35-5.85); RED CELL DISTRIBUTION WIDTH 13.3 % (10.0-14.5); WHITE BLOOD COUNT 11.4 10^3/uL (4.3-11.0)
[2016-10-27 04:55] LABS: ANION GAP 11 MMOL/L (5-14); BLOOD UREA NITROGEN 13 MG/DL (7-18); BUN/CREATININE RATIO 18; CALCIUM 8.1 MG/DL (8.5-10.1); CARBON DIOXIDE 24 MMOL/L (21-32); CHLORIDE 107 MMOL/L (98-107); CREATININE SERUM 0.74 MG/DL (0.60-1.30); GFR ESTIMATED > 60; GLUCOSE 142 MG/DL (70-105); MAGNESIUM 1.8 MG/DL (1.8-2.4); PHOSPHORUS 2.1 MG/DL (2.3-4.7); POTASSIUM 3.5 MMOL/L (3.6-5.0); SODIUM 142 MMOL/L (135-145)
[2016-10-27] MEDS: metroNIDAZOLE 500MG/100ML IVPB 100 ML IV SCH ×3 (05:11→21:01)
[2016-10-27] MEDS: PIPERACILLIN SODIUM/TAZOBACTAM 4.5 GM in NORMAL SALINE (BAXTER MINI) 100 ML IV SCH ×3 (05:12→22:12)
[2016-10-27] MEDS: KCL 20 MEQ TAB (K-DUR) PO SCH (05:17)
[2016-10-27] MEDS: MAGNESIUM 1 GM/100 ML IVPB 100 ML IV SCH (05:17)
[2016-10-27] MEDS: POTASSIUM CL 10MEQ/50ML IVPB 50 ML IV SCH ×3 (05:20→06:14)
[2016-10-27 08:35] LABS: BILIRUBIN,URINE NEGATIVE (NEGATIVE); KETONES,URINE 4+ (NEGATIVE); LEUKOCYTE ESTERASE ,URINE 1+ (NEGATIVE); NITRITE,URINE NEGATIVE (NEGATIVE); PH,URINE 7 (5-9); PROTEIN,URINE 2+ (NEGATIVE); UROBILINOGEN,URINE NORMAL (NORMAL)
--- NOTE | 2016-10-27 09:07 | Progress Note-Hospitalist ---
Subjective HPI/CC On Admission CC: Cecal mass resection POD # 1 HPI: This is a 56yoWM s/p laparoscopic left partial colon resection for cecal mass performed by Dr. Farley. Surgery uncomplicated. Dr. Farley requested consultation from Dr. Harmon and pt will be sent to ICU on ice chip diet. Pt has significant amount of allergies to both food and medications. I introduce myself to the patient and his primary care provider is Dr. Romero in [place] of which she only goes once a year. He had seen [facility] gastroenterology but mass was so large it could not be removed via scope. At this current time pain is controlled and overall doing well and is expected. Scribed by Jose Alberto Holden under the direct supervision of Dr. Harmon. Date Seen 10/27/16 Subjective/Events-last exam patient is been walking in the halls and was headed out of his room with his at the time of interview. He reports that he is feeling better and for the first time past flatus this morning. He reports decreased abdominal pain denies chest discomfort or shortness of breath. Objective Exam Vital Signs Vital Sign - Last 12Hours 10/24/16 06:20 Temp 97.8 Pulse 85 Resp 18 B/P 145/96 Pulse Ox 97 O2 Delivery Room Air Capillary Refill : General Appearance: No Apparent Distress Respiratory: Chest Non Tender Lungs Clear Normal Breath Sounds No Accessory Muscle Use No Respiratory Distress Cardiovascular: Regular Rate, Rhythm No Edema No Gallop No JVD No Murmur Normal Peripheral Pulses Gastrointestinal: Normal Bowel Sounds No Organomegaly No Pulsatile Mass Distended (mild distention) Other (surgical wound looks good minimal erythema and no induration packing were several dorcas of been removed draining serosanguineous material.) Results/Procedures Lab Laboratory Tests 10/27/16 04:00 Assessment/Plan Assessment and Plan Assess & Plan/Chief Complaint 1. Postop day 3 laparoscopic assisted right hemicolectomy for presumed colon cancer with resolving ileus. Transfer to the floor is okay with me per Dr. Farley's order. 2. White count decreasing with no evidence for cervical wound infection today continue to monitor. CHELI MERLOS MD Oct 27, 2016 09:07
[2016-10-27] MEDS: FAMOTIDINE 20MG/2ML IV (PEPCID) IVP SCH (09:40)
--- NOTE | 2016-10-27 10:09 | Progress Note ---
Subjective Subjective/Events-last exam feeling better. passed some flatus this am. No nausea. Less congestion. Pain controlled. Low grade temp but refusing tylenol. Ambulating and using IS. Objective Exam Vital Signs Date Time Temp Pulse Resp B/P Pulse Ox O2 Delivery O2 Flow Rate FiO2 10/27/16 08:00 100.9 10/27/16 07:39 98 Room Air 10/27/16 07:00 89 10/27/16 06:00 89 17 155/91 94 Room Air 10/27/16 05:31 14 10/27/16 05:00 82 15 144/84 95 Room Air 10/27/16 04:00 100.1 88 10 149/87 95 Room Air 10/27/16 04:00 95 Room Air 10/27/16 03:00 86 16 134/76 96 Room Air 10/27/16 02:49 96 Room Air 10/27/16 02:00 95 21 136/72 98 Room Air 10/27/16 01:00 85 17 134/77 95 Room Air 10/27/16 01:00 85 10/27/16 00:10 96 Room Air 10/27/16 00:00 100.5 93 13 135/82 95 Room Air 10/26/16 23:00 85 16 134/74 96 Room Air 10/26/16 22:46 96 Room Air 10/26/16 22:00 93 15 126/76 95 Room Air 10/26/16 21:00 92 16 127/80 97 Room Air 10/26/16 20:04 93 Room Air 10/26/16 20:00 98 18 139/81 97 Room Air 10/26/16 20:00 100 Room Air 10/26/16 19:00 85 10/26/16 19:00 100.4 90 14 153/87 100 Room Air 10/26/16 18:00 15 10/26/16 18:00 92 8 174/89 98 Room Air 10/26/16 17:00 93 15 95 Room Air 10/26/16 16:00 94 26 156/89 97 Room Air 10/26/16 16:00 99.9 10/26/16 15:00 92 24 157/97 98 Room Air 10/26/16 14:00 95 12 150/85 97 Room Air 10/26/16 13:32 97 Room Air 10/26/16 13:00 95 10/26/16 13:00 92 28 159/88 97 Room Air 10/26/16 12:00 92 25 155/86 98 Room Air 10/26/16 12:00 99.0 10/26/16 11:00 92 19 95 Room Air I & O 10/27/16 07:00 Intake Total 3535 ml Output Total 1275 ml Balance 2260 ml Capillary Refill : General Appearance: No Apparent Distress HEENT: PERRL/EOMI Normal ENT Inspection Pharynx Normal Neck: Non Tender Supple Respiratory: Chest Non Tender Lungs Clear Normal Breath Sounds No Accessory Muscle Use No Respiratory Distress Cardiovascular: Regular Rate, Rhythm No Edema No Gallop No JVD No Murmur Normal Peripheral Pulses Gastrointestinal: soft no organomegaly tenderness (generalized tenderness minimal, slight redness around inferior portion of midline incision unchanged from yesterday) Extremity: Normal Capillary Refill Normal Inspection Normal Range of Motion Non Tender No Calf Tenderness No Pedal Edema Neurologic/Psychiatric: Alert Oriented x3 No Motor/Sensory Deficits Normal Mood/Affect Skin: Normal Color Warm/Dry Lymphatic: No Adenopathy Results Lab Laboratory Tests 10/26/16 16:20: Glucometer 143H 10/26/16 18:47: Glucometer 132H 10/27/16 00:07: Glucometer 147H 10/27/16 04:00: Anion Gap 11, BUN/Creatinine Ratio 18, Basophils # (Auto) 0.0, Basophils (%) ( Auto) 0, Blood Urea Nitrogen 13, Calcium Level 8.1L, Carbon Dioxide Level 24, Chloride Level 107, Creatinine 0.74, Eosinophils # (Auto) 0.3, Eosinophils (%) ( Auto) 2, Estimat Glomerular Filtration Rate > 60, Glucose Level 142H, Hematocrit 38L, Hemoglobin 12.4L, Lymphocytes # (Auto) 1.4, Lymphocytes (%) ( Auto) 12, Magnesium Level 1.8, Mean Corpuscular Hemoglobin 28, Mean Corpuscular Hemoglobin Concent 33, Mean Corpuscular Volume 87, Mean Platelet Volume 11.0H, Monocytes # (Auto) 1.2H, Monocytes (%) (Auto) 11, Neutrophils # (Auto) 8.5H, Neutrophils (%) (Auto) 75, Phosphorus Level 2.1L, Platelet Count 200, Potassium Level 3.5L, Red Blood Count 4.36, Red Cell Distribution Width 13.3, Sodium Level 142, White Blood Count 11.4H 10/27/16 08:30: Urine Bacteria TRACE, Urine Bilirubin NEGATIVE, Urine Casts NONE, Urine Clarity CLEAR, Urine Color YELLOW, Urine Crystals NONE, Urine Culture Indicated NO, Urine Glucose (UA) 2+H, Urine Ketones 4+H, Urine Leukocyte Esterase 1+H, Urine Mucus NEGATIVE, Urine Nitrite NEGATIVE, Urine Protein 2+H, Urine RBC NONE, Urine RBC (Auto) 1+H, Urine Specific [place] 1.010L, Urine Squamous Epithelial Cells 2-5, Urine Urobilinogen NORMAL, Urine WBC NONE, Urine pH 7 Microbiology 10/25/16 Blood Culture - Preliminary, Resulted No growth Assessment/Plan Assessment/Plan Assessment/Plan post status laparoscopic hand assisted right colon resection hepatic flexure mobilization secondary to cecal mass Nausea- improved, passing flatus Patient with midline erythema, unchanged from yesterday Continue to antibiotics due to leukocytosis and fever- wbc coming down increase activity IS DVT GI prophylaxis transfer to floor Clinical Quality Measures DVT/VTE Risk/Contraindication: Risk Factor Score Per Nursin RFS Level Per Nursing on Admit: 3=High RENAN DECKER DO Oct 27, 2016 10:08 am
[2016-10-27] MEDS ORDERED: HYDROcodone/APAP 5 MG/325 MG (LORTAB) TAB PO PRN (10:15)
[2016-10-27] MEDS ORDERED: NS W/KCL 20 MEQ/L 1,000 ML IV SCH (15:00)
[2016-10-27] MEDS: POTASSIUM CHLORIDE INJ 10 MEQ in NS IV 1000 ML 1,000 ML IV SCH (17:22)
[2016-10-28] VITALS (7 sets, daily range): BP systolic 150–164; BP diastolic 76–83
[2016-10-28 04:44] LABS: BASOPHILS % (AUTO) 0 % (0-10); EOSINOPHILS # (AUTO) 0.3 10^3/uL (0.0-0.3); EOSINOPHILS % (AUTO) 3 % (0-10); LYMPHOCYTES # (AUTO) 1.2 X 10^3 (1.0-4.0); LYMPHOCYTES % (AUTO) 11 % (12-44); MEAN CORPUSCULAR HEMOGLOBIN 29 PG (25-34); MEAN CORPUSCULAR HGB CONC 33 G/DL (32-36); MEAN CORPUSCULAR VOLUME 86 FL (80-99); MEAN PLATELET VOLUME 10.9 FL (7.4-10.4); MONOCYTES # (AUTO) 1.1 X 10^3 (0.0-1.0); MONOCYTES % (AUTO) 10 % (0-12); NEUTROPHILS # (AUTO) 8.6 X 10^3 (1.8-7.8); NEUTROPHILS % (AUTO) 76 % (42-75); PLATELET COUNT 236 10^3/uL (130-400); RED BLOOD COUNT 4.52 10^6/uL (4.35-5.85); WHITE BLOOD COUNT 11.2 10^3/uL (4.3-11.0)
[2016-10-28] MEDS: POTASSIUM CHLORIDE INJ 10 MEQ in NS IV 1000 ML 1,000 ML IV SCH ×4 (05:07→19:35)
[2016-10-28] MEDS: metroNIDAZOLE 500MG/100ML IVPB 100 ML IV SCH ×3 (05:07→21:01)
[2016-10-28 05:09] LABS: ANION GAP 10 MMOL/L (5-14); BLOOD UREA NITROGEN 11 MG/DL (7-18); BUN/CREATININE RATIO 14; CALCIUM 8.3 MG/DL (8.5-10.1); CARBON DIOXIDE 23 MMOL/L (21-32); CHLORIDE 110 MMOL/L (98-107); CREATININE SERUM 0.78 MG/DL (0.60-1.30); GFR ESTIMATED > 60; GLUCOSE 151 MG/DL (70-105); MAGNESIUM 1.9 MG/DL (1.8-2.4); PHOSPHORUS 2.6 MG/DL (2.3-4.7); POTASSIUM 3.5 MMOL/L (3.6-5.0); SODIUM 143 MMOL/L (135-145)
[2016-10-28] MEDS: PIPERACILLIN SODIUM/TAZOBACTAM 4.5 GM in NORMAL SALINE (BAXTER MINI) 100 ML IV SCH ×3 (06:17→22:05)
[2016-10-28] MEDS: fluCOnazole (DIFLUCAN) 100 MG TAB PO SCH (08:29)
[2016-10-28] MEDS: FAMOTIDINE 20MG/2ML IV (PEPCID) IVP SCH (08:29)
--- NOTE | 2016-10-28 10:08 | Progress Note ---
Subjective Subjective/Events-last exam Patient is resting in room. Sitting on a chair. Alert and oriented x 3. No signs of distress or discomfort. Pt passing gas and having diarrhea. Still on clear liquids. Objective Exam Vital Signs Date Time Temp Pulse Resp B/P Pulse Ox O2 Delivery O2 Flow Rate FiO2 10/28/16 08:06 95 Room Air 10/28/16 08:00 Room Air 10/28/16 08:00 99.8 81 20 156/83 97 Room Air 10/28/16 06:00 20 10/28/16 06:00 100.7 82 20 164/77 96 Room Air 10/28/16 04:00 100.7 82 20 164/77 96 Room Air 10/28/16 02:16 95 Room Air 10/28/16 00:00 100.1 80 20 163/77 93 Room Air 10/27/16 19:24 96 Room Air 10/27/16 19:20 99.8 82 20 160/79 97 Room Air 10/27/16 18:48 16 10/27/16 16:00 99.3 79 18 153/74 98 Room Air 10/27/16 14:16 98 Room Air 10/27/16 12:57 100.9 10/27/16 12:00 86 18 160/89 98 Room Air 10/27/16 11:19 Room Air I & O 10/28/16 07:00 Intake Total 2810 ml Output Total 250 ml Balance 2560 ml Capillary Refill : General Appearance: No Apparent Distress Neck: Non Tender Supple Respiratory: Chest Non Tender Lungs Clear Normal Breath Sounds No Respiratory Distress Cardiovascular: Regular Rate, Rhythm No Edema Gastrointestinal: soft no organomegaly tenderness (tenderness around incision sites, slight bruising around inferior portion of midline incision ) Extremity: Normal Capillary Refill Normal Inspection Normal Range of Motion Non Tender No Calf Tenderness No Pedal Edema Neurologic/Psychiatric: Alert Oriented x3 No Motor/Sensory Deficits Normal Mood/Affect Skin: Normal Color Warm/Dry Lymphatic: No Adenopathy Results Lab Laboratory Tests Test 10/26/16 16:20 10/26/16 18:47 10/27/16 00:07 10/27/16 04:00 Range/Units Glucometer 143 H 132 H 147 H 70-110 MG/DL Anion Gap 11 5-14 MMOL/L BUN/Creatinine Ratio 18 Basophils # (Auto) 0.0 0.0-0.1 10^3/uL Basophils (%) (Auto) 0 0-10 % Blood Urea Nitrogen 13 7-18 MG/DL Calcium Level 8.1 L 8.5-10.1 MG/DL Carbon Dioxide Level 24 21-32 MMOL/L Chloride Level 107 98-107 MMOL/L Creatinine 0.74 0.60-1.30 MG/DL Eosinophils # (Auto) 0.3 0.0-0.3 10^3/uL Eosinophils (%) (Auto) 2 0-10 % Estimat Glomerular Filtration Rate > 60 Glucose Level 142 H 70-105 MG/DL Hematocrit 38 L 40-54 % Hemoglobin 12.4 L 13.3-17.7 G/DL Lymphocytes # (Auto) 1.4 1.0-4.0 X 10^3 Lymphocytes (%) (Auto) 12 12-44 % Magnesium Level 1.8 1.8-2.4 MG/DL Mean Corpuscular Hemoglobin 28 25-34 PG Mean Corpuscular Hemoglobin Concent 33 32-36 G/DL Mean Corpuscular Volume 87 80-99 FL Mean Platelet Volume 11.0 H 7.4-10.4 FL Monocytes # (Auto) 1.2 H 0.0-1.0 X 10^3 Monocytes (%) (Auto) 11 0-12 % Neutrophils # (Auto) 8.5 H 1.8-7.8 X 10^3 Neutrophils (%) (Auto) 75 42-75 % Phosphorus Level 2.1 L 2.3-4.7 MG/DL Platelet Count 200 130-400 10^3/uL Potassium Level 3.5 L 3.6-5.0 MMOL/L Red Blood Count 4.36 4.35-5.85 10^6/uL Red Cell Distribution Width 13.3 10.0-14.5 % Sodium Level 142 135-145 MMOL/L White Blood Count 11.4 H 4.3-11.0 10^3/uL Test 10/27/16 08:30 10/28/16 04:20 Range/Units Urine Bacteria TRACE /HPF Urine Bilirubin NEGATIVE NEGATIVE Urine Casts NONE /LPF Urine Clarity CLEAR Urine Color YELLOW Urine Crystals NONE /LPF Urine Culture Indicated NO Urine Glucose (UA) 2+ H NEGATIVE Urine Ketones 4+ H NEGATIVE Urine Leukocyte Esterase 1+ H NEGATIVE Urine Mucus NEGATIVE /LPF Urine Nitrite NEGATIVE NEGATIVE Urine Protein 2+ H NEGATIVE Urine RBC NONE /HPF Urine RBC (Auto) 1+ H NEGATIVE Urine Specific [place] 1.010 L 1.016-1.022 Urine Squamous Epithelial Cells 2-5 /HPF Urine Urobilinogen NORMAL NORMAL MG/DL Urine WBC NONE /HPF Urine pH 7 5-9 Anion Gap 10 5-14 MMOL/L BUN/Creatinine Ratio 14 Basophils # (Auto) 0.0 0.0-0.1 10^3/uL Basophils (%) (Auto) 0 0-10 % Blood Urea Nitrogen 11 7-18 MG/DL Calcium Level 8.3 L 8.5-10.1 MG/DL Carbon Dioxide Level 23 21-32 MMOL/L Chloride Level 110 H 98-107 MMOL/L Creatinine 0.78 0.60-1.30 MG/DL Eosinophils # (Auto) 0.3 0.0-0.3 10^3/uL Eosinophils (%) (Auto) 3 0-10 % Estimat Glomerular Filtration Rate > 60 Glucose Level 151 H 70-105 MG/DL Hematocrit 39 L 40-54 % Hemoglobin 12.9 L 13.3-17.7 G/DL Lymphocytes # (Auto) 1.2 1.0-4.0 X 10^3 Lymphocytes (%) (Auto) 11 L 12-44 % Magnesium Level 1.9 1.8-2.4 MG/DL Mean Corpuscular Hemoglobin 29 25-34 PG Mean Corpuscular Hemoglobin Concent 33 32-36 G/DL Mean Corpuscular Volume 86 80-99 FL Mean Platelet Volume 10.9 H 7.4-10.4 FL Monocytes # (Auto) 1.1 H 0.0-1.0 X 10^3 Monocytes (%) (Auto) 10 0-12 % Neutrophils # (Auto) 8.6 H 1.8-7.8 X 10^3 Neutrophils (%) (Auto) 76 H 42-75 % Phosphorus Level 2.6 2.3-4.7 MG/DL Platelet Count 236 130-400 10^3/uL Potassium Level 3.5 L 3.6-5.0 MMOL/L Red Blood Count 4.52 4.35-5.85 10^6/uL Red Cell Distribution Width 13.0 10.0-14.5 % Sodium Level 143 135-145 MMOL/L White Blood Count 11.2 H 4.3-11.0 10^3/uL Laboratory Tests 10/28/16 04:20: Anion Gap 10, BUN/Creatinine Ratio 14, Basophils # (Auto) 0.0, Basophils (%) ( Auto) 0, Blood Urea Nitrogen 11, Calcium Level 8.3L, Carbon Dioxide Level 23, Chloride Level 110H, Creatinine 0.78, Eosinophils # (Auto) 0.3, Eosinophils (%) (Auto) 3, Estimat Glomerular Filtration Rate > 60, Glucose Level 151H, Hematocrit 39L, Hemoglobin 12.9L, Lymphocytes # (Auto) 1.2, Lymphocytes (%) ( Auto) 11L, Magnesium Level 1.9, Mean Corpuscular Hemoglobin 29, Mean Corpuscular Hemoglobin Concent 33, Mean Corpuscular Volume 86, Mean Platelet Volume 10.9H, Monocytes # (Auto) 1.1H, Monocytes (%) (Auto) 10, Neutrophils # ( Auto) 8.6H, Neutrophils (%) (Auto) 76H, Phosphorus Level 2.6, Platelet Count 236 , Potassium Level 3.5L, Red Blood Count 4.52, Red Cell Distribution Width 13.0, Sodium Level 143, White Blood Count 11.2H Microbiology 10/25/16 Blood Culture - Preliminary, Resulted No growth Assessment/Plan Assessment/Plan Assessment/Plan post status laparoscopic hand assisted right colon resection hepatic flexure mobilization secondary to cecal mass No Nausea or vomiting, passing flatus and having diarrhea Patient with bruising along midline incision and and left incision. No drainage. Continue to antibiotics due to leukocytosis and fever- wbc 11.2, trending down. increase activity Encouraged use of IS. Will discuss with Dr. Farley about advancing diet. DVT GI prophylaxis Miguelito-patient is passing flatus and having liquid stools. Patient feeling much better. He doesn't have any nausea. He's tolerating diet. His white count is coming down. There is no erythema around his midline incision. Patient overall feeling better. In no acute distress heart regular Lungs nonlabored breathing Abdomen soft midline incision with some bruising around it but no erythema incisional tenderness Extremities nontender Normal mood and affect Alert and oriented Patient assessment as above. We will advance diet. Will consult Dr. Cutler from oncology. Likely home tomorrow Clinical Quality Measures DVT/VTE Risk/Contraindication: Risk Factor Score Per Nursin RFS Level Per Nursing on Admit: 3=High NWAGWU,ISIDORE O INTERACTIVE MEDIA SPECIALIST Oct 28, 2016 10:08 RENAN FARLEY DO Oct 28, 2016 16:53
--- NOTE | 2016-10-28 11:35 | Physical Therapy Daily Note ---
PT Daily Note-Current Subjective Pt in restroom with 's assistance upon arrival. Pt reports feeling a little down since being told he would have to have chemotherapy. Pt agreed to walking for PT. Mental Status Patient Orientation: Person, Place, Time, Situation Attachments: IV Transfers Functional [place] Measure 0=Not Assessed/NA 4=Minimal Assistance 1=Total Assistance 5=Supervision or Setup 2=Maximal Assistance 6=Modified [place] 3=Moderate Assistance 7=Complete IndependenceIRFPAI Quality Coding Scale 6 Independent with activity with or without an assistive device 5 Patient requires set up or clean up by helper. Patient completes activity by themselves 4 Supervision or touching assist (CGA). [place] provide cues , steadying assist 3 The helper provides less than half the effort to complete the activity 2 The helper provides more than half the effort to complete the activity 1 Dependent. The helper does all the effort to complete an activity 7 Patient refused to complete or attempt activity 9 The patient did not perform the activity before the current illness or injury 88 Not attempted due to Medical conditions or safety concerns Transfers (B, C, W/C) (FIM): 6 Scootin Sit to/from Stand: 6 Weight Bearing Weight Bearing Restriction: Full Weight Bearing Location Restriction: LE Bilateral Gait Training Distance (FIM): 3=150 ft Distance: 350' Gait Level of Assist: 5 Gait Persons Needed: 1 Gait Assistive Device: FWW Pt walks with normalized gait pattern but fatigues easy. Exercises Seated Therapy Exercises: Ankle pumps, Long arc quads, Hip flexion, Kicking activity Seated Reps: 10 Treatments Pt transferred from restroom to standing at [facility]. Pt then ambulated in hallway using FWW at [facility] only using assistance with managing IV pole. Pt returned to room to rest after walk. Pt sat at [facility] to rest. PT gave instruction on seated EX that could be done for strengthening both in the hospital and at home. Pt completed a few at [facility] to get practice. PT also gave instruction (audiovisual) on supine EX as well that could be done later. PT contacted Powder Room Attendant to visit with pt on AD for home before discharge. Pt was left with all needs met at end of tx. Assessment Current Status: Good Progress Pt is making progress with both activity tolerance (walked farther before fatigue) as well as gait and balance. PT Short Term Goals Short Term Goals Time Frame: Oct 28, 2016 Transfers (B,C,W/C) (FIM): 6 PT Metal Pickling Equipment Operator Goals Metal Pickling Equipment Operator Goals PT Metal Pickling Equipment Operator Goals Time Frame: Nov 01, 2016 Transfers (B,C,W/C) (FIM): 7 Gait (FIM): 7 Gait distance (FIM): 3=150 ft Distance: 150' Gait Level of Assist: 7 Gait Assistive Device: None Stairs (FIM): 5 # of Steps: 4 Stairs Level Of Assist: 6 PT Plan Problem List Problem List: Activity Tolerance, Functional Strength, Balance, Gait Treatment/Plan Treatment Plan: Continue Plan of Care Treatment Plan: Bed Mobility, Education, Functional Activity [place], Functional Strength, Gait, Therapeutic Exercise, Transfers Treatment Duration: Nov 01, 2016 Visits Per Week: 5-6 Safety Risks/Education Patient Education: Gait Training, Transfer Techniques, Correct Positioning, Safety Issues Teaching Recipient: Patient, Significant Other Teaching Methods: Discussion Response to Teaching: Verbalize Understanding Time/GCodes Time In: 1100 Time Out: 1125 Total Billed Treatment Time: 25 Total Billed Treatment visit, GT (15m) & FA (10m) ALMA MORAN FLORIST SUPPLIES SALESPERSON Oct 28, 2016 11:35
[2016-10-28] MEDS ORDERED: fentaNYL INJECTION 100 MCG/2 ML AMP IVP PRN (17:00)
[2016-10-29 00:30] VITALS: BP 136/73
[2016-10-29 04:30] VITALS: BP 139/78
[2016-10-29] MEDS: POTASSIUM CHLORIDE INJ 10 MEQ in NS IV 1000 ML 1,000 ML IV SCH (04:35)
[2016-10-29] MEDS: metroNIDAZOLE 500MG/100ML IVPB 100 ML IV SCH (05:03)
[2016-10-29 06:02] LABS: BASOPHILS % (AUTO) 0 % (0-10); EOSINOPHILS # (AUTO) 0.6 10^3/uL (0.0-0.3); EOSINOPHILS % (AUTO) 7 % (0-10); LYMPHOCYTES # (AUTO) 1.6 X 10^3 (1.0-4.0); LYMPHOCYTES % (AUTO) 17 % (12-44); MEAN CORPUSCULAR HEMOGLOBIN 28 PG (25-34); MEAN CORPUSCULAR HGB CONC 33 G/DL (32-36); MEAN CORPUSCULAR VOLUME 86 FL (80-99); MEAN PLATELET VOLUME 11.2 FL (7.4-10.4); MONOCYTES # (AUTO) 1.1 X 10^3 (0.0-1.0); MONOCYTES % (AUTO) 13 % (0-12); NEUTROPHILS # (AUTO) 5.6 X 10^3 (1.8-7.8); NEUTROPHILS % (AUTO) 63 % (42-75); PLATELET COUNT 219 10^3/uL (130-400); RED BLOOD COUNT 3.91 10^6/uL (4.35-5.85); WHITE BLOOD COUNT 8.9 10^3/uL (4.3-11.0)
[2016-10-29] MEDS: PIPERACILLIN SODIUM/TAZOBACTAM 4.5 GM in NORMAL SALINE (BAXTER MINI) 100 ML IV SCH (06:15)
[2016-10-29 06:20] LABS: ANION GAP 10 MMOL/L (5-14); BLOOD UREA NITROGEN 9 MG/DL (7-18); BUN/CREATININE RATIO 12; CARBON DIOXIDE 21 MMOL/L (21-32); CHLORIDE 112 MMOL/L (98-107); CREATININE SERUM 0.73 MG/DL (0.60-1.30); GFR ESTIMATED > 60; GLUCOSE 141 MG/DL (70-105); MAGNESIUM 1.8 MG/DL (1.8-2.4); PHOSPHORUS 2.1 MG/DL (2.3-4.7); POTASSIUM 3.3 MMOL/L (3.6-5.0); SODIUM 143 MMOL/L (135-145)
--- NOTE | 2016-10-29 07:54 | CONSULTATION REPORT ---
DATE OF CONSULTATION: 10/28/2016 REFERRING PHYSICIAN: Mateo Farley D.O. PRIMARY PHYSICIAN: Km Romero D.O. The patient is admitted to Room 415. IMPRESSION: 1. 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 2. Extensive family history of malignancies. RECOMMENDATIONS: 1. Continue postoperative care as you are doing. 2. Because of stage III colon cancer, the patient would benefit from adjuvant chemotherapy with FOLFOX or Xelox type regimen for 6 months, adjuvantly. 3. Please schedule a follow-up appointment with me at [facility] in 3 weeks to discuss treatment options. 4. If the patient decides to proceed with adjuvant chemotherapy, he will need port placement for administration of chemotherapy. 5. He will need genetic screening and testing because of extensive family history of various malignancies. BRIEF HISTORY: Mr. Krishnamurthy is a 56-year-old male who underwent a routine colonoscopy in late 2015 which was abnormal with a plaque-like lesion in the cecum. As this could not be removed completely by endoscopy, the patient was referred to [facility] and had repeat biopsies done, but again, the lesion could not be removed completely. The biopsies done at [facility] did show an invasive malignancy and the patient underwent laparoscopic right hemicolectomy which showed the results mentioned above. Hence, medical oncology consultation was obtained to discuss about further options. The patient denied any hematochezia or melena. No abdominal pain, nausea or vomiting. No new lumps or masses. No new bony aches or pains. No headaches or visual changes. No chest pain, palpitations, orthopnea, or PND. PAST MEDICAL HISTORY: Significant for diabetes melitis diagnosed approximately 2 years ago, which is being controlled with diet and exercise alone. He has not required any medication therapy for this. PREVIOUS SURGERY: Ava tooth extraction in teenage years. SOCIAL HISTORY: The patient is and lives in [place], [place]. He works in [place], [place] in the [employer] office and lives during the week over there. He has 2 children. He denied any tobacco, alcohol or other recreational drug use. 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 FAMILY HISTORY: Significant for his father who was diagnosed with colon cancer at the age of 70 years. Mother was diagnosed with gynecologic malignancy at the age of 50 years and a few years later. His sister was diagnosed with essential thrombocythemia at the age of 60 years and is on treatment for this. His daughter was diagnosed with melanoma at the age of 19 years. A cousin on the maternal side of the family was diagnosed with breast cancer at the age of 50 years. PHYSICAL EXAMINATION: Today showed a middle-aged male, well-developed, and nourished, awake, and oriented, weak appearing but otherwise in no acute distress. VITAL SIGNS: Temperature was 100, pulse rate of 78, respiratory rate 18, blood pressure 150/78, oxygen saturation 100% on room air. HEENT: Normocephalic, extraocular muscles intact. Conjunctiva pink. Oral mucosa slightly dry without lesions. NECK: Supple with no JVD. No cervical, supraclavicular, or axillary lymphadenopathy palpable. CHEST: Chest was symmetrical. LUNGS: Fairly clear to auscultation without wheezes or rales. CARDIOVASCULAR EXAM: Regular in rate and rhythm. No murmurs or gallops heard. ABDOMEN: With hypoactive bowel sounds. Postoperative changes from recent laparoscopic right hemicolectomy noted. Deep palpation was not done. EXTREMITIES: Showed no edema. NEUROLOGICAL EXAM: Showed no focal motor deficits. LABORATORY: I reviewed the pathology report from recent right hemicolectomy which showed moderately differentiated colonic adenocarcinoma with mucinous component extending through the muscularis propria into the subserosal tissue. Metastatic adenocarcinoma involving 1 of 19 lymph nodes. Appendix with fibrous obliteration of the distal lumen. All margins were negative and lymphovascular invasion was not identified. The patient had a PET CT scan done on 10/22/2016 which showed mild increased FDG uptake associated with soft tissue thickening in the cecum. No associated hyper metabolic mass to suggest metastatic disease. Mildly prominent retrocecal lymph nodes without significant FDG uptake. CEA level done on 10/22/2016 preoperatively was elevated at 22.1. Thank you for allowing me to participate in this patient's care. I will follow the patient with you and make appropriate recommendations. Job ID: [id number] Dictated Date: 10/28/2016 16:27:41 Leather Tooler Date: 10/29/2016 07:31:00/linh ADAMS
[2016-10-29 08:44] VITALS: BP 146/78
[2016-10-29] MEDS: fluCOnazole (DIFLUCAN) 100 MG TAB PO SCH (09:36)
[2016-10-29] MEDS: FAMOTIDINE 20MG/2ML IV (PEPCID) IVP SCH (09:36)
[2016-10-29] MEDS: POTASSIUM CL 10MEQ/50ML IVPB 50 ML IV SCH ×3 (09:37→11:49)
--- NOTE | 2016-10-29 09:40 | Physical Therapy Progress Note ---
Therapy Progress Note Patient is up independently in room and hallway with spouse. PT to dismiss patient from services with spouse and patient to continue with independent ambulation. LINDA MONTERO PT Oct 29, 2016 09:40
[2016-10-29] MEDS ORDERED: HYDR-3062 PO (09:55)
[2016-10-29] MEDS ORDERED: AMOX-358 PO ×2 (10:18→10:24)
[2016-10-29] MEDS ORDERED: METR500T PO (10:24)
--- NOTE | 2016-10-29 10:29 | Discharge Inst-Simple/Standard ---
Discharge Inst-Standard Discharge Medications New, Converted or Re-Newed RX: RX on Chart Patient Instructions/Follow Up Plan of Care/Instructions/FU: Follow up with Dr. Farley in 10-14 days. Take medication as tolerated. Advance diet as tolerated. Follow up with PCP in one week Activity as Tolerated: No Discharge Diet: Other Diet (Advance diet as tolerated from a soft diet to a solid diet. ) Other Inst to Patient Follow up Appt: Make appointment for 10-14 days. Instructions: No lifting greater than 10 pounds. No strenuous activity. Use incentive spirometer at home as directed. No Smoking Skin/Wound Care: Keep clean and Dry. Continue to monitor for signs of infection. Symptoms to Report: Appetite Changes, Extremity Discoloration, Numbness/Tingling, Swelling Increased , Bleeding Excessive, Eyesight Changes, Pain Increased, Urine Color Change, Constipation(Persistent), Fever over 101 degree F, Pain/Pressure in chest, Urinating Difficulty, Cough Up/Vomit Blood, Heart Beat Irreg/Pounding, Pain/ Pressure in jaw, Vaginal Bleeding Increase, Cramps in feet or legs, Lightheadedness, Pain/Pressure in shoulder, Diarrhea(Persistent), Memory Changes Suddenly, Questions/Concerns, Weight gain consecutive days, Dizziness/ Fainting, Nausea/Vomiting, Shortness of Breath, Weight gain over 2 pounds If questions or concerns contact your physician Or seek help at emergency department. Planned Outpatient Orders/Ref. Pneu Vac Indicated: Yes KRYSTINA WREN APRN Oct 29, 2016 10:28
--- NOTE | 2016-10-29 10:35 | Progress Note ---
Subjective Subjective/Events-last exam patient is sitting up in bedside chair. Alert and oriented 3. Abdomen is soft to palpation. Patient denies any pain on palpation over the abdomen. No signs of distress noted. No signs of chest pain, fever or chills. Objective Exam Vital Signs Date Time Temp Pulse Resp B/P Pulse Ox O2 Delivery O2 Flow Rate FiO2 10/29/16 08:44 99.5 70 16 146/78 95 Room Air 10/29/16 06:57 95 Room Air 10/29/16 04:30 98.1 71 20 139/78 96 10/29/16 01:48 96 Room Air 10/29/16 00:30 99.1 83 20 136/73 Room Air 10/28/16 22:20 94 Room Air 10/28/16 20:24 100.3 81 20 162/78 97 Room Air 10/28/16 19:28 96 Room Air 10/28/16 18:00 20 10/28/16 16:05 98.4 75 18 159/76 99 Room Air 10/28/16 14:13 96 Room Air 10/28/16 12:00 100.0 78 18 150/78 100 Room Air 10/28/16 10:51 96 Room Air I & O 10/29/16 07:00 Intake Total 4895 ml Balance 4895 ml Capillary Refill : General Appearance: No Apparent Distress Neck: Non Tender Supple Respiratory: Chest Non Tender Lungs Clear Normal Breath Sounds No Respiratory Distress Cardiovascular: Regular Rate, Rhythm No Edema Gastrointestinal: soft no organomegaly tenderness (minimal tenderness around incision sites, slight bruising around inferior portion of midline incision ) Extremity: Normal Capillary Refill Normal Inspection Normal Range of Motion Non Tender No Calf Tenderness No Pedal Edema Neurologic/Psychiatric: Alert Oriented x3 No Motor/Sensory Deficits Normal Mood/Affect Skin: Normal Color Warm/Dry Other (slight bruising noted around surgical incisionmidline abdomen) Lymphatic: No Adenopathy Results Lab Laboratory Tests Test 10/28/16 04:20 10/29/16 05:13 Range/Units Anion Gap 10 10 5-14 MMOL/L BUN/Creatinine Ratio 14 12 Basophils # (Auto) 0.0 0.0 0.0-0.1 10^3/uL Basophils (%) (Auto) 0 0 0-10 % Blood Urea Nitrogen 11 9 7-18 MG/DL Calcium Level 8.3 L 8.0 L 8.5-10.1 MG/DL Carbon Dioxide Level 23 21 21-32 MMOL/L Chloride Level 110 H 112 H 98-107 MMOL/L Creatinine 0.78 0.73 0.60-1.30 MG/DL Eosinophils # (Auto) 0.3 0.6 H 0.0-0.3 10^3/uL Eosinophils (%) (Auto) 3 7 0-10 % Estimat Glomerular Filtration Rate > 60 > 60 Glucose Level 151 H 141 H 70-105 MG/DL Hematocrit 39 L 34 L 40-54 % Hemoglobin 12.9 L 11.1 L 13.3-17.7 G/DL Lymphocytes # (Auto) 1.2 1.6 1.0-4.0 X 10^3 Lymphocytes (%) (Auto) 11 L 17 12-44 % Magnesium Level 1.9 1.8 1.8-2.4 MG/DL Mean Corpuscular Hemoglobin 29 28 25-34 PG Mean Corpuscular Hemoglobin Concent 33 33 32-36 G/DL Mean Corpuscular Volume 86 86 80-99 FL Mean Platelet Volume 10.9 H 11.2 H 7.4-10.4 FL Monocytes # (Auto) 1.1 H 1.1 H 0.0-1.0 X 10^3 Monocytes (%) (Auto) 10 13 H 0-12 % Neutrophils # (Auto) 8.6 H 5.6 1.8-7.8 X 10^3 Neutrophils (%) (Auto) 76 H 63 42-75 % Phosphorus Level 2.6 2.1 L 2.3-4.7 MG/DL Platelet Count 236 219 130-400 10^3/uL Potassium Level 3.5 L 3.3 L 3.6-5.0 MMOL/L Red Blood Count 4.52 3.91 L 4.35-5.85 10^6/uL Red Cell Distribution Width 13.0 13.0 10.0-14.5 % Sodium Level 143 143 135-145 MMOL/L White Blood Count 11.2 H 8.9 4.3-11.0 10^3/uL Laboratory Tests 10/29/16 05:13: Anion Gap 10, BUN/Creatinine Ratio 12, Basophils # (Auto) 0.0, Basophils (%) ( Auto) 0, Blood Urea Nitrogen 9, Calcium Level 8.0L, Carbon Dioxide Level 21, Chloride Level 112H, Creatinine 0.73, Eosinophils # (Auto) 0.6H, Eosinophils (% ) (Auto) 7, Estimat Glomerular Filtration Rate > 60, Glucose Level 141H, Hematocrit 34L, Hemoglobin 11.1L, Lymphocytes # (Auto) 1.6, Lymphocytes (%) ( Auto) 17, Magnesium Level 1.8, Mean Corpuscular Hemoglobin 28, Mean Corpuscular Hemoglobin Concent 33, Mean Corpuscular Volume 86, Mean Platelet Volume 11.2H, Monocytes # (Auto) 1.1H, Monocytes (%) (Auto) 13H, Neutrophils # (Auto) 5.6, Neutrophils (%) (Auto) 63, Phosphorus Level 2.1L, Platelet Count 219, Potassium Level 3.3L, Red Blood Count 3.91L, Red Cell Distribution Width 13.0, Sodium Level 143, White Blood Count 8.9 Microbiology 10/25/16 Blood Culture - Preliminary, Resulted No growth Assessment/Plan Assessment/Plan Assessment/Plan post status laparoscopic hand assisted right colon resection hepatic flexure mobilization secondary to cecal mass No Nausea or vomiting, passing flatus and having diarrhea Patient with bruising along midline incision and and left incision. No drainage. patient to be discharged to home today. Patient be placed on Flagyl 500 mg by mouth 3 times a day and Augmentin twice a day 7 days. Clinical Quality Measures DVT/VTE Risk/Contraindication: Risk Factor Score Per Nursin RFS Level Per Nursing on Admit: 3=High KRYSTINA WREN APRN Oct 29, 2016 10:35
[2016-10-29 13:46] VITALS: BP 146/78
--- OUTSIDE RECORDS SUMMARY | 2016-10-30 11:22 | XMS REPORT | Continuity of Care Document ---
Author Author [facility] Organization [facility] Address Unknown Phone Unavailable Care Team Providers Care Product Manager E Commerce Name Role Phone Km Romero PCP [phone] Source Comments Some departments are not documenting in the electronic medical record. If you do not see the information that you expected, contact Release of Information in the Health Information Management department at [phone] for further assistance in locating additional records.[facility] Active Allergies and Adverse Reactions Allergen Noted Date Severity Reactions Comments Aspirin 09/12/2016 High ANAPHYLAXIS [place] 09/20/2016 Low STOMACH UPSET Egg 09/20/2016 High [...] Recent Encounters Date Type Specialty Providers Description 10/25/2016 Telephone Gastroenterology Corwin Lind MD Follow-up Phone Call 10/22/2016 [facility] Jeremi Hicks MD Dysphagia Encounter 10/22/2016 Surgery Jeremi Hicks MD Canceled ESOPHAGOGASTRODUODENOSCOP Y 10/09/2016 Telephone Gastroenterology Mya Moe Appointment Request - EGD - [facility] 10/08/2016 Prep for Case Gastroenterology Jeremi Hicks MD 10/08/2016 Telephone Gastroenterology Jeremi Hicks MD Other - repeat EGD 10/08/2016 Telephone Gastroenterology Corwin Lind MD Provider Discussion About Patient 10/04/2016 [facility] Jeremi Hicks MD Dysphagia Encounter 10/04/2016 Endo Rslt Enc GastroenterCowrin Tesfaye MD 10/04/2016 Endo Rslt Enc GastroenterCorwin Tesfaye MD 10/04/2016 Surgery Jeremi iHcks MD COLONOSCOPY and EGD with Dr. Hicks for dysphagia, h/o EOE and Ileocecal valve polyp. Needs PAT prior on separate day. 09/20/2016 PAC Office Anesthesiology Corwin Lind MD Preop cardiovascular exam Visit (Primary Dx); Preop testing 09/20/2016 Anesthesia Bia Worley APRN Event 09/19/2016 Telephone Gastroenterology Jeremi Hicks MD Patient Questions 09/16/2016 Telephone Gastroenterology Mya Moe Appointment Request - EGD/Colonoscopy - [facility] 09/12/2016 Office Visit Gastroenterology Corwin Lind MD Colonic adenoma (Primary Dx); Celiac disease 09/12/2016 Prep for Case GastroenterCorwin Tesfaye MD 09/11/2016 Telephone Gastroenterology Corwin Lind MD Referral Social History Tobacco Use Types Packs/Day Years Used Date Never Smoker Smokeless Tobacco: Never Used Alcohol Use Drinks/Week oz/Week Comments No 0 Standard 0.0 drinks or equivalent Last Filed Vital Signs Vital Sign Reading Time Taken Blood Pressure 130/75 10/04/2016 9:07 AM MILLING MACHINE TENDER Pulse 85 10/04/2016 9:07 AM MILLING MACHINE TENDER Temperature 36.9 C (98.4 F) 10/04/2016 8:37 AM MILLING MACHINE TENDER Respiratory Rate 16 09/12/2016 1:29 PM MILLING MACHINE TENDER Height 1.93 m (6' 4") 10/04/2016 7:07 AM MILLING MACHINE TENDER Weight 98.884 kg (218 lb) 10/04/2016 7:07 AM MILLING MACHINE TENDER Body Mass Index 26.55 10/04/2016 7:07 AM MILLING MACHINE TENDER Oxygen Saturation 99% 10/04/2016 9:07 AM MILLING MACHINE TENDER Plan of Care Date Type Specialty Providers Description 11/14/2016 Appointment Gastroenterology Corwin Lind MD [address] [facility] [address] [place] [address] [phone] (Fax) 01/06/2017 Appointment GastroenterCorwin Tesfaye MD [address] [facility] [address] [place] [address] [phone] (Fax) Health Maintenance Due Date Last Done Comments Hepatitis C Screening 1960 Physical (Comprehensive) 1968 Exam Pertussis Vaccine 1972 Tetanus Vaccine 1978 Influenza Vaccine 06/13/2016 Colorectal Cancer 10/04/2026 10/04/2016, 10/04/2016 Screening Procedures from Last 3 Months Procedure Name Priority Date/Time Associated Diagnosis Comments TELEMETRY STRIPS-SCAN 10/08/2016 Results for this 12:11 PM MILLING MACHINE TENDER procedure are in the results section. ESOPHAGOGASTRODUODENOSCOP 10/04/2016 Dysphagia Y BIOPSY 7:30 AM MILLING MACHINE TENDER ESOPHAGOGASTRODUODENOSCOP 10/04/2016 Dysphagia Y & Colonoscopy with 7:30 AM MILLING MACHINE TENDER Fabiola for dysphagia, h/o EOE and Ileocecal valve polyp. Needs PAT prior on separate day. COLONOSCOPY and EGD with 10/04/[address] Hicks for 7:30 AM MILLING MACHINE TENDER dysphagia, h/o EOE and Ileocecal valve polyp. Needs PAT prior on separate day. Results from Last 3 Months TELEMETRY STRIPS-SCAN (10/08/2016 12:11 PM) Narrative Ordered by an unspecified provider. SURGICAL PATHOLOGY (10/04/2016 8:59 AM) Component Value Range PATHOLOGY REPORT [facility] [email or web address] Apryl Bernardo MD, PhD, Director of Anatomic Pathology Department of Pathology and Laboratory Medicine [address] [place] [phone] Surgical Pathology Office: [phone] SURGICAL PATHOLOGY REPORT NAME: MENDY AGOSTO SURG PATH #: [id number] MR #: [id number] SPECIMEN CLASS: SR BILLING #: [id number] ALT ID #: LOCATION: GIENDO DATE OF [...] See comment. Comment: E. Pursuant to the Police Commissioner Program at the [facility] Pathology Department, selected slides from this [...] in this report. +++Electronically Signed Out By+++ ke/10/08/2016 Interpreted by: Ezio Rubio MD, Attending Physician [...] of Pathology and Laboratory Medicine of the [facility] ([employer]) in compliance with CLIA'88 regulations. Some of these tests rely on the use of "analyte specific reagents" and are subject to specific labeling requirements by the FDA. Known positive and negative control tissues demonstrate appropriate staining. This testing was developed by the Department of Pathology and Laboratory Medicine of the [facility]. It has not been cleared or approved by the FDA. The FDA has determined that such clearance or approval is not necessary. COLONOSCOPY (10/04/2016 8:01 AM) Component Value Range Provation Report Patient Name: Raghu Vázquez Procedure Date: 10/04/2016 8:01 AM [facility]: [id number] Date of : 1960 Gender: Male Attending Physician: Jeremi Hicks MD Procedure: Colonoscopy Indications: Hi story of IC valve polyp seen from outside colonoscopy, biopsies of which showed adxenoma - presents for possible rescection. Providers: Jeremi Hicks MD (Doctor), Yana Basilio RN (Nurse), Ricardo Lucas, Tar Pot Worker (Tar Pot Worker), Hollie Wang MD (Fellow) Referring Physician: Corwin [...] 36 seconds Procedure Code(s): --- Professional --- 63869, Colonoscopy, flexible; with biopsy, single or multiple Diagnosis Code(s): --- Professional --- K64.8, Other hemorrhoids K63.5, Polyp of colon CPT copyright 2015 [employer]. All rights reserved. The codes documented in this report are preliminary and upon senior financial analyst review may be revised to meet current [...] ID Moderate growth RODOLFO ALBICANS Specimen Esophageal [place] Organism Antibiotic Method Susceptibility Moderate growth rodolfo [...] Vázquez Procedure Date: 10/04/2016 7:31 AM CSN: [id number] Date of : 1960 Gender: Male Attending Physician: Jeremi Hicks MD Procedure: Upper GI endoscopy Indications: Dy sphagia, History of celiac disease. Providers: Jeremi Hicks MD (Doctor), Yana Basilio RN (Nurse), Ricardo Lucas, Tar Pot Worker (Tar Pot Worker), Hollie Wang MD (Fellow) Referring Physician: Corwin [...] 6 seconds Procedure Code(s): --- Professional --- 31603, Esophagogastroduodenoscopy, flexible, transoral; with biopsy, single or multiple Diagnosis Code(s): --- Professional --- B37.81, Candidal esophagitis K22.2, Esophageal obstruction K31.7, Polyp of stomach and duodenum R13.10, Dysphagia, unspecified CPT copyright 2015 [employer]. All rights reserved. The codes documented in this report are preliminary and upon senior financial analyst review may be revised to meet current [...]
--- NOTE | 2016-11-01 09:12 | Discharge Summary ---
Diagnosis/Chief Complaint Date of Admission Oct 24, 2016 at 11:15 Date of Discharge Oct 29, 2016 at 14:00 Discharge Date: Oct 29, 2016 Discharge Diagnosis post status laparoscopic hand assisted right colon resection hepatic flexure mobilization secondary to cecal mass Reason Hospital Visit Cecal Mass Discharge Summary Procedures: NAME: MENDY AGOSTO 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 PROCEDURE: Laparoscopic hand-assisted right colon resection with mobilization of the hepatic flexure, SURGEON: Miguelito. FABRIC AND TEXTILE FACTORY WORKER: Dr. Chai Montelongo, to assist in retraction, dissection, and closure ESTIMATED BLOOD LOSS: Minimal. COMPLICATIONS: None. 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 He understands the risks and benefits of the procedure and wishes to proceed with procedure. Consent was signed on the chart. PROCEDURE: The patient was taken to the operating suite, he was prepped and draped in the sterile fashion. A surgical pause was performed. A midline incision was made just at the umbilicus in order for GelPort to be placed. Once the abdomen was entered the abdomen was inspected. There were some adhesions down the right lower quadrant. The GelPort was placed. Two 12 mm trocars were placed; one in the right lower quadrant and one in the right upper quadrant and these were done under direct visualization through the incision. Once in place and the abdomen was insufflated. The adhesions in the right lower quadrant were then taken down with cautery and blunt dissection. Once these were taken down, the cecum was elevated and the colon was mobilized along the right lateral port using spatula cautery. Once mobilized, had assist in mobilization, the third 12 mm trocar was placed in the left lower quadrant to aid in visualization and dissection. Once the dissection of mobilization of the white line of [place], and the (s/l [place]) performed the GelPort cover was removed and the right colon was brought up through the incision. A FAINA blue linear stapler was fired proximal to the ileocecal valve after the ileum was dissected around with a hemostat and was fired across the ileum. The right colon was brought out as well and dissected around using a hemostat. A FAINA linear blue staple load was then fired across the colon distal to where the mass was palpated. Using a LigaSure a wedge was created removing the specimen and the mesentery to the ending portion of the ileum and also the cecum and a portion of the right colon. Within this, there was a larger palpable node present. In removing the specimen there was a small venous lesion at the mesentery which a 2-0 silk suture in a mdimif-vd-mrgie fashion was used to achieve hemostasis. The hepatic flexure was freed up slightly more allowing less tension taking down the majority of the hepatic flexure. The small bowel then brought to the colon and a side to side anastomosis was created using a FAINA linear stapler. A crotch stitch was placed using 2-0 silk suture. Due to a dog-ear of the small bowel, LigaSure was used to ((s/l deliver) the mesentery and then another FAINA blue staple load was fired across the small bowel removing the dog-ear small bowel. The mesentery was closed using 2-0 silk suture. The anastomosis was patent, and the bowel appeared viable. Hemostasis had been achieved. The bowel was placed back within the abdomen. Copious amounts of irrigation was used to irrigate the abdomen and suctioned. The trocars were removed and fascial defects were closed internally using 0 Vicryl on a UR size needle. All trocars were removed including the GelPort and the fascia was then closed using 1-0 loop PDS in a running fashion. The wound was irrigated with copious amounts of irrigation and the skin was then stapled closed. A total of 20 mL of 0.5% Marcaine 1% lidocaine at a 50:50 ratio was used to anesthetize all incisions and trocar sites. The areas were then washed and dried and sterile bandages were applied. The patient tolerated procedure well without any complications and taken to recovery room in stable condition. Job ID: [id number] Dictated Date: 10/24/2016 17:07:10 Catering Cook Date: 10/25/2016 09:07:34 / [facility] [id number] <Dictated by RENAN DECKER DO> Discharge Physical Examination Allergies: Coded Allergies: Poultry (Verified Allergy, Severe, ANAPHYLAXIS, 08/19/16) Yeast (Verified Allergy, Severe, ANAPHYLAXIS, 08/19/16) aspirin (Verified Allergy, Severe, ANAPHYLAXIS, 08/19/16) latex (Verified Allergy, Severe, HIVES, 08/19/16) wheat (Verified Allergy, Severe, ANAPHYLAXIS, 08/19/16) Influenza Virus Vaccines (Verified Allergy, Unknown, 10/22/16) banana (Verified Allergy, Unknown, 10/22/16) corn (Verified Allergy, Unknown, 10/22/16) egg (Verified Allergy, Unknown, 10/22/16) garlic (Verified Allergy, Unknown, 10/22/16) oats (Verified Allergy, Unknown, 10/22/16) onion (Verified Allergy, Unknown, 10/22/16) peanut (Verified Allergy, Unknown, 10/22/16) pepper (Verified Allergy, Unknown, 10/22/16) rice (Verified Allergy, Unknown, 10/22/16) shellfish derived (Verified Allergy, Unknown, 10/22/16) Uncoded Allergies: PAIN RELIEVERS (Allergy, Severe, ANAPHYLAXIS, 08/19/16) ANTIBIOTICS (Allergy, Unknown, 08/19/16) Vitals & I&Os Vital Signs Date Time Temp Pulse Resp B/P Pulse Ox O2 Delivery O2 Flow Rate FiO2 10/29/16 13:46 70 16 146/78 97 Room Air 10/29/16 08:44 99.5 General Appearance: Alert, Oriented X3, Cooperative Respiratory: Clear to Auscultation Cardiovascular: Regular Rate Abdominal: Soft Hospital Course The patient is a 56-year-old male who Patient had colonoscopy with possibility of endoscopic resection. However the mass was going into the terminal ileum which was unable be resected. 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 Dr. Decker discussed findings with the Patient. Patient understood the risks and benefits of the procedure, laparoscopic hand-assisted right colon resection, possible open and wishes to proceed with procedure. Consent was signed on the chart. The procedure was performed by Dr. Decker. During stay in the hospital, the hospital and drawer waxer were consulted on the case. Patient was admitted to the ICU for a few days and then to the 4th floor. By day 3, post surgery Patient , passing Flatus and BM. Prior to discharge, Patient was sitting up in bedside chair. Alert and oriented 3. Abdomen soft to palpation. Patient denied any pain on palpation over the abdomen. No signs of distress noted. No signs of chest pain, fever or chills. Patient tolerating liquid diet with no nausea or vomiting. Patient was discharged on 29 October to follow up with Dr. Decker in 10-14 days. He was also prescribed Augmentin 875 mg 1 tablet by mouth twice a day 7 days and Flagyl 500 mg by mouth 3 times a day x 7 days. Patient was instructed to advance diet as tolerated and to follow with PCP in one week. Nursing staff provided discharge instructions. Discharge Instructions to patient/family Please see electonic discharge instructions given to patient. Discharge Medications Reviewed and agree with Discharge Medication list on patient's Discharge Instruction sheet Clinical Quality Measures DVT/VTE Risk/Contraindication: Risk Factor Score Per Nursin RFS Level Per Nursing on Admit: 3=High KRYSTINA WREN APRN Nov 01, 2016 09:12
[2016-11-01] MEDS ORDERED: METR500T PO (09:30)
== END 2016-10-29 14:00 | disposition home or self-care (01) | DRG 330 ==
LOC: SDC 06:00 → EDSTATUS 08:00 → ICU 11:15 → SDC 11:15 → ICU 11:15 → UNDOFXSDCACCOM 10-27 10:21 → 4TH 10-27 10:21 → UNDOFXSDCSVC 10-27 10:21 → 4TH 10-27 10:21 → SDC 10-29 14:00
PROVIDERS: ADMIT Surgery; ATTEND Surgery
PROC: 0DTF0ZZ Resection of Right Large Intestine, Open Approach (ICD-10-PCS; principal; 2016-10-24 07:44)
DX: C18.0 Malignant neoplasm of cecum (principal); C77.2 Secondary and unspecified malignant neoplasm of intra-abdominal lymph nodes; E11.9 Type 2 diabetes mellitus without complications; K21.9 Gastro-esophageal reflux disease without esophagitis; J45.909 Unspecified asthma, uncomplicated
CPT/HCPCS: 36415; 71010; 80048; 80053; 81000; 81275; 82962; 83605; 83735; 84100; 85025; 86850; 86900; 86901; 87040; 88302; 88381; 94640; 94664

== ENCOUNTER 2016-11-28 05:35 | Outpatient (CLI) | payer BC ==
[~2016-11-28] VITALS: Ht 193 cm; Wt 92.8 kg
[~2016-11-28 05:35] MED LIST changes: +AMOX-358 PO; +EPIN0.3P2 IJ; +FLUC100T6 PO; +HYDR-3062 PO; +METR500T PO
--- OUTSIDE RECORDS SUMMARY | 2016-11-28 05:40 | XMS REPORT | Continuity of Care Document ---
Author Author [facility] Organization [facility] Address Unknown Phone Unavailable Care Team Providers Care Professor Of Apologetics Name Role Phone Km Romero PCP [phone] Source Comments Some departments are not documenting in the electronic medical record. If you do not see the information that you expected, contact Release of Information in the Health Information Management department at [phone] for further assistance in locating additional records.[facility] Active Allergies and Adverse Reactions Allergen Noted Date Severity Reactions Comments Aspirin 09/12/2016 High ANAPHYLAXIS [place] 09/20/2016 Low STOMACH UPSET Egg 09/20/2016 High [...] Corwin Lind MD Follow-up Phone Call 10/22/2016 [facility] Jeremi Hicks MD Dysphagia Encounter 10/22/2016 Surgery Jeremi Hicks MD Canceled ESOPHAGOGASTRODUODENOSCOP Y 10/09/2016 Telephone Gastroenterology Mya Moe Appointment Request - EGD - [facility] 10/08/2016 Prep for Case Jeremi Gottlieb MD 10/08/2016 Telephone Gastroenterology Jeremi Hicks MD Other - repeat EGD 10/08/2016 Telephone Gastroenterology Corwin Lind MD Provider Discussion About Patient 10/04/2016 [facility] Jeremi Hicks MD Dysphagia Encounter 10/04/2016 [...] Dx); Preop testing 09/20/2016 Anesthesia Bia Worley, PV INSTALLER TECH Event 09/19/2016 Telephone Gastroenterology Jeremi Hicks MD Patient Questions 09/16/2016 Telephone Gastroenterology Mya Moe Appointment Request - EGD/Colonoscopy - [facility] 09/12/2016 Office Visit Gastroenterology Corwin Lind MD [...] Taken Blood Pressure 132/84 11/14/2016 11:03 AM ORDNANCE TRUCK INSTALLATION SUPERVISOR Pulse 85 11/14/2016 11:03 AM ORDNANCE TRUCK INSTALLATION SUPERVISOR Temperature 36.8 C (98.3 F) 11/14/2016 11:03 AM ORDNANCE TRUCK INSTALLATION SUPERVISOR Respiratory Rate 16 11/14/2016 11:03 AM ORDNANCE TRUCK INSTALLATION SUPERVISOR Height 1.93 m (6' 4") 11/14/2016 11:03 AM ORDNANCE TRUCK INSTALLATION SUPERVISOR Weight 90.266 kg (199 lb) 11/14/2016 11:03 AM ORDNANCE TRUCK INSTALLATION SUPERVISOR Body Mass Index 24.23 11/14/2016 11:03 AM ORDNANCE TRUCK INSTALLATION SUPERVISOR Oxygen Saturation 99% 10/04/2016 9:07 AM ORDNANCE TRUCK INSTALLATION SUPERVISOR Plan of Care Health Maintenance Due Date Last Done Comments Hepatitis C Screening 1960 Physical (Comprehensive) 1968 Exam Pertussis Vaccine 1972 Tetanus Vaccine 1978 Influenza Vaccine 06/13/2016 Colorectal Cancer 10/04/2026 10/04/2016, 10/04/2016 Screening Procedures from Last 3 Months Procedure Name Priority Date/Time Associated Diagnosis Comments TELEMETRY STRIPS-SCAN 10/08/2016 Results for this 12:11 PM ORDNANCE TRUCK INSTALLATION SUPERVISOR procedure are in the results section. ESOPHAGOGASTRODUODENOSCOP 10/04/2016 Dysphagia Y BIOPSY 7:30 AM ORDNANCE TRUCK INSTALLATION SUPERVISOR ESOPHAGOGASTRODUODENOSCOP 10/04/2016 Dysphagia Y & Colonoscopy with 7:30 AM ORDNANCE TRUCK INSTALLATION SUPERVISOR Fabiola for dysphagia, h/o EOE and Ileocecal valve polyp. Needs PAT prior on separate day. COLONOSCOPY and EGD with 10/04/[address] Hicks for 7:30 AM ORDNANCE TRUCK INSTALLATION SUPERVISOR dysphagia, h/o EOE and Ileocecal valve polyp. Needs PAT prior on separate day. Results from Last 3 Months TELEMETRY STRIPS-SCAN (10/08/2016 12:11 PM) Narrative Ordered by an unspecified provider. SURGICAL PATHOLOGY (10/04/2016 8:59 AM) Component Value Range PATHOLOGY REPORT [facility] [email or web address] Apryl Bernardo MD, PhD, Director of Anatomic Pathology Department of Pathology and Laboratory Medicine [address] [place] [id number] Surgical Pathology Office: [phone] SURGICAL PATHOLOGY REPORT NAME: MENDY AGOSTO SURG PATH #: [id number] MR #: [id number] SPECIMEN CLASS: SR BILLING #: [id number] ALT ID #: LOCATION: GIEND DATE OF [...] See comment. Comment: E. Pursuant to the Field Collector Program at the [facility] Pathology Department, selected slides from this case [...] of Pathology and Laboratory Medicine of the [facility] ([employer]) in compliance with CLIA'88 regulations. Some of these tests rely on the use of "analyte specific reagents" and are subject to specific labeling requirements by the FDA. Known positive and negative control tissues demonstrate appropriate staining. This testing was developed by the Department of Pathology and Laboratory Medicine of the [facility]. It has not been cleared or approved by the FDA. The FDA has determined that such clearance or approval is not necessary. COLONOSCOPY (10/04/2016 8:01 AM) Component Value Range Provation Report Patient Name: Raghu Vázquez Procedure Date: 10/04/2016 8:01 AM [facility]: [id number] Date of : 1960 Gender: Male Attending Physician: Jeremi Hicks MD Procedure: Colonoscopy Indications: Hi story of IC valve polyp seen from outside colonoscopy, biopsies of which showed adxenoma - presents for possible rescection. Providers: Jeremi Hicks MD (Doctor), Yana Basiloi RN (Nurse), Ricardo Lucas, Placing Judge (Placing Judge), Hollie Wang MD (Fellow) Referring Physician: Corwin [...] 36 seconds Procedure Code(s): --- Professional --- 96684, Colonoscopy, flexible; with biopsy, single or multiple Diagnosis Code(s): --- Professional --- K64.8, Other hemorrhoids K63.5, Polyp of colon CPT copyright 2015 [employer]. All rights reserved. The codes documented in this report are preliminary and upon vp software engineering review may be revised to meet current [...] ID Moderate growth RODOLFO ALBICANS Specimen Esophageal [place] Organism Antibiotic Method Susceptibility Moderate growth rodolfo [...] Vázquez Procedure Date: 10/04/2016 7:31 AM CSN: [id number] Date of : 1960 Gender: Male Attending Physician: Jeremi Hicks MD Procedure: Upper GI endoscopy Indications: Dy sphagia, History of celiac disease. Providers: Jeremi Hicks MD (Doctor), Yana Basilio RN (Nurse), Ricardo Lucas, Placing Judge (Placing Judge), Hollie Wang MD (Fellow) Referring Physician: Corwin [...] 6 seconds Procedure Code(s): --- Professional --- 13379, Esophagogastroduodenoscopy, flexible, transoral; with biopsy, single or multiple Diagnosis Code(s): --- Professional --- B37.81, Candidal esophagitis K22.2, Esophageal obstruction K31.7, Polyp of stomach and duodenum R13.10, Dysphagia, unspecified CPT copyright 2015 [employer]. All rights reserved. The codes documented in this report are preliminary and upon vp software engineering review may be revised to meet current [...]
== END 2016-11-28 12:49 ==
LOC: PREOP 05:35
PROVIDERS: ATTEND Surgery
DX: Z01.818 Encounter for other preprocedural examination (principal); C18.9 Malignant neoplasm of colon, unspecified

== ENCOUNTER 2016-12-02 06:03 | Day surgery (SDC) | payer BC ==
[~2016-12-02] VITALS: Ht 193 cm; Wt 92.8 kg
--- OUTSIDE RECORDS SUMMARY | 2016-12-02 06:08 | XMS REPORT | Continuity of Care Document ---
Author Author [facility] Organization [facility] Address Unknown Phone Unavailable Care Team Providers Care Relationship Banker Name Role Phone Km Romero PCP [phone] Source Comments Some departments are not documenting in the electronic medical record. If you do not see the information that you expected, contact Release of Information in the Health Information Management department at [phone] for further assistance in locating additional records.[facility] Active Allergies and Adverse Reactions Allergen Noted Date Severity Reactions Comments Aspirin 09/12/2016 High ANAPHYLAXIS [place] 09/20/2016 Low STOMACH UPSET Egg 09/20/2016 High [...] Corwin Lind MD Follow-up Phone Call 10/22/2016 [facility] Jeremi Hicks MD Dysphagia Encounter 10/22/2016 Surgery Jeremi Hicks MD Canceled ESOPHAGOGASTRODUODENOSCOP Y 10/09/2016 Telephone Gastroenterology Mya Moe Appointment Request - EGD - [facility] 10/08/2016 Prep for Case Jeremi Gottlieb MD 10/08/2016 Telephone Gastroenterology Jeremi Hicks MD Other - repeat EGD 10/08/2016 Telephone Gastroenterology Corwin Lind MD Provider Discussion About Patient 10/04/2016 [facility] Jeremi Hicks MD Dysphagia Encounter 10/04/2016 [...] Dx); Preop testing 09/20/2016 Anesthesia Bia Worley, MAPPING TECHNICIAN Event 09/19/2016 Telephone Gastroenterology Jeremi Hicks MD Patient Questions 09/16/2016 Telephone Gastroenterology Mya Moe Appointment Request - EGD/Colonoscopy - [facility] 09/12/2016 Office Visit Gastroenterology Corwin Lind [...] Taken Blood Pressure 132/84 11/14/2016 11:03 AM ROENTGENOLOGIST Pulse 85 11/14/2016 11:03 AM ROENTGENOLOGIST Temperature 36.8 C (98.3 F) 11/14/2016 11:03 AM ROENTGENOLOGIST Respiratory Rate 16 11/14/2016 11:03 AM ROENTGENOLOGIST Height 1.93 m (6' 4") 11/14/2016 11:03 AM ROENTGENOLOGIST Weight 90.266 kg (199 lb) 11/14/2016 11:03 AM ROENTGENOLOGIST Body Mass Index 24.23 11/14/2016 11:03 AM ROENTGENOLOGIST Oxygen Saturation 99% 10/04/2016 9:07 AM ROENTGENOLOGIST Plan of Care Health Maintenance Due Date Last Done Comments Hepatitis C Screening 1960 Physical (Comprehensive) 1968 Exam Pertussis Vaccine 1972 Tetanus Vaccine 1978 Influenza Vaccine 06/13/2016 Colorectal Cancer 10/04/2026 10/04/2016, 10/04/2016 Screening Procedures from Last 3 Months Procedure Name Priority Date/Time Associated Diagnosis Comments TELEMETRY STRIPS-SCAN 10/08/2016 Results for this 12:11 PM ROENTGENOLOGIST procedure are in the results section. ESOPHAGOGASTRODUODENOSCOP 10/04/2016 Dysphagia Y BIOPSY 7:30 AM ROENTGENOLOGIST ESOPHAGOGASTRODUODENOSCOP 10/04/2016 Dysphagia Y & Colonoscopy with 7:30 AM ROENTGENOLOGIST Fabiola for dysphagia, h/o EOE and Ileocecal valve polyp. Needs PAT prior on separate day. COLONOSCOPY and EGD with 10/04/[address] Hicks for 7:30 AM ROENTGENOLOGIST dysphagia, h/o EOE and Ileocecal valve polyp. Needs PAT prior on separate day. Results from Last 3 Months TELEMETRY STRIPS-SCAN (10/08/2016 12:11 PM) Narrative Ordered by an unspecified provider. SURGICAL PATHOLOGY (10/04/2016 8:59 AM) Component Value Range PATHOLOGY REPORT [facility] [email or web address] Apryl Bernardo MD, PhD, Director of Anatomic Pathology Department of Pathology and Laboratory Medicine [address] [place] [id number] Surgical Pathology Office: [phone] SURGICAL PATHOLOGY REPORT NAME: MENDY AGOSTO SURG PATH #: [id number] MR #: [id number] SPECIMEN CLASS: SR BILLING #: [id number] ALT ID #: LOCATION: GIEND DATE OF [...] See comment. Comment: E. Pursuant to the Cigarette Machines Mechanic Program at the [facility] Pathology Department, selected slides from this case [...] of Pathology and Laboratory Medicine of the [facility] ([employer]) in compliance with CLIA'88 regulations. Some of these tests rely on the use of "analyte specific reagents" and are subject to specific labeling requirements by the FDA. Known positive and negative control tissues demonstrate appropriate staining. This testing was developed by the Department of Pathology and Laboratory Medicine of the [facility]. It has not been cleared or approved by the FDA. The FDA has determined that such clearance or approval is not necessary. COLONOSCOPY (10/04/2016 8:01 AM) Component Value Range Provation Report Patient Name: Raghu Vázquez Procedure Date: 10/04/2016 8:01 AM [facility]: [id number] Date of : 1960 Gender: Male Attending Physician: Jeremi Hicks MD Procedure: Colonoscopy Indications: Hi story of IC valve polyp seen from outside colonoscopy, biopsies of which showed adxenoma - presents for possible rescection. Providers: Jeremi Hicks MD (Doctor), Yana Basilio RN (Nurse), Ricardo Lucas, City Collector (City Collector), Hollie Wang MD (Fellow) Referring Physician: Corwin [...] 36 seconds Procedure Code(s): --- Professional --- 13228, Colonoscopy, flexible; with biopsy, single or multiple Diagnosis Code(s): --- Professional --- K64.8, Other hemorrhoids K63.5, Polyp of colon CPT copyright 2015 [employer] [place] [employer]. All rights reserved. The codes documented in this report are preliminary and upon home administrator review may be revised to meet current [...] ID Moderate growth RODOLFO ALBICANS Specimen Esophageal [place] Organism Antibiotic Method Susceptibility Moderate growth rodolfo [...] Vázquez Procedure Date: 10/04/2016 7:31 AM CSN: [id number] Date of : 1960 Gender: Male Attending Physician: Jeremi Hicks MD Procedure: Upper GI endoscopy Indications: Dy sphagia, History of celiac disease. Providers: Jeremi Hicks MD (Doctor), Yana Basilio RN (Nurse), Ricardo Lucas, City Collector (City Collector), Hollie Wang MD (Fellow) Referring Physician: Corwin [...] 6 seconds Procedure Code(s): --- Professional --- 23795, Esophagogastroduodenoscopy, flexible, transoral; with biopsy, single or multiple Diagnosis Code(s): --- Professional --- B37.81, Candidal esophagitis K22.2, Esophageal obstruction K31.7, Polyp of stomach and duodenum R13.10, Dysphagia, unspecified CPT copyright 2015 [employer] [place] [employer]. All rights reserved. The codes documented in this report are preliminary and upon home administrator review may be revised to meet current [...]
--- OUTSIDE RECORDS SUMMARY | 2016-12-02 06:09 | XMS REPORT | Continuity of Care Document ---
Author Author [facility] Organization [facility] Address Unknown Phone Unavailable Care Team Providers Care Pyridine Operator Name Role Phone Km Romero PCP [phone] Source Comments Some departments are not documenting in the electronic medical record. If you do not see the information that you expected, contact Release of Information in the Health Information Management department at [phone] for further assistance in locating additional records.[facility] Active Allergies and Adverse Reactions Allergen Noted Date Severity Reactions Comments Aspirin 09/12/[address] [place] 09/20/2016 Low STOMACH UPSET Egg 09/20/2016 High [...] Specialty Providers Description 11/14/2016 Office Visit Gastroenterology Coriwn Lind MD Malignant neoplasm of ascending colon (HCC) (Primary Dx); Celiac disease; Eosinophilic esophagitis 10/25/2016 Telephone Gastroenterology Corwin Lind MD Follow-up Phone Call 10/22/2016 [facility] Jeremi Hicks MD Dysphagia Encounter 10/22/2016 Surgery Jeremi Hicks MD Canceled ESOPHAGOGASTRODUODENOSCOP Y 10/09/2016 Telephone Gastroenterology Mya Moe Appointment Request - EGD - [facility] 10/08/2016 Prep for Case Jeremi Gottlieb MD 10/08/2016 Telephone Gastroenterology Jeremi Hicks MD Other - repeat EGD 10/08/2016 Telephone Gastroenterology Corwin Lind MD Provider Discussion About Patient 10/04/2016 [facility] Jeremi Hicks MD Dysphagia Encounter [...] Dx); Preop testing 09/20/2016 Anesthesia Bia Worley, TAR POT WORKER Event 09/19/2016 Telephone Gastroenterology Jeremi Hicks MD Patient Questions 09/16/2016 Telephone Gastroenterology Mya Moe Appointment Request - EGD/Colonoscopy - [facility] 09/12/2016 Office Visit Gastroenterology Corwin Lind MD [...] Taken Blood Pressure 132/84 11/14/2016 11:03 AM BUSINESS ADMINISTRATION TEACHER Pulse 85 11/14/2016 11:03 AM BUSINESS ADMINISTRATION TEACHER Temperature 36.8 C (98.3 F) 11/14/2016 11:03 AM BUSINESS ADMINISTRATION TEACHER Respiratory Rate 16 11/14/2016 11:03 AM BUSINESS ADMINISTRATION TEACHER Height 1.93 m (6' 4") 11/14/2016 11:03 AM BUSINESS ADMINISTRATION TEACHER Weight 90.266 kg (199 lb) 11/14/2016 11:03 AM BUSINESS ADMINISTRATION TEACHER Body Mass Index 24.23 11/14/2016 11:03 AM BUSINESS ADMINISTRATION TEACHER Oxygen Saturation 99% 10/04/2016 9:07 AM BUSINESS ADMINISTRATION TEACHER Plan of Care Health Maintenance Due Date Last Done Comments Hepatitis C Screening 1960 Physical (Comprehensive) 1968 Exam Pertussis Vaccine 1972 Tetanus Vaccine 1978 Influenza Vaccine 06/13/2016 Colorectal Cancer 10/04/2026 10/04/2016, 10/04/2016 Screening Procedures from Last 3 Months Procedure Name Priority Date/Time Associated Diagnosis Comments TELEMETRY STRIPS-SCAN 10/08/2016 Results for this 12:11 PM BUSINESS ADMINISTRATION TEACHER procedure are in the results section. ESOPHAGOGASTRODUODENOSCOP 10/04/2016 Dysphagia Y BIOPSY 7:30 AM BUSINESS ADMINISTRATION TEACHER ESOPHAGOGASTRODUODENOSCOP 10/04/2016 Dysphagia Y & Colonoscopy with 7:30 AM BUSINESS ADMINISTRATION TEACHER Fabiola for dysphagia, h/o EOE and Ileocecal valve polyp. Needs PAT prior on separate day. COLONOSCOPY and EGD with 10/04/[address] Hicks for 7:30 AM BUSINESS ADMINISTRATION TEACHER dysphagia, h/o EOE and Ileocecal valve polyp. Needs PAT prior on separate day. Results from Last 3 Months TELEMETRY STRIPS-SCAN (10/08/2016 12:11 PM) Narrative Ordered by an unspecified provider. SURGICAL PATHOLOGY (10/04/2016 8:59 AM) Component Value Range PATHOLOGY REPORT [facility] [email or web address] Apryl Bernardo MD, PhD, Director of Anatomic Pathology Department of Pathology and Laboratory Medicine [address] [place] [id number] Surgical Pathology Office: [phone] SURGICAL PATHOLOGY REPORT NAME: MENDY AGOSTO SURG PATH #: [id number] MR #: [id number] SPECIMEN CLASS: SR BILLING #: [id number] ALT ID #: LOCATION: GIEND DATE OF [...] See comment. Comment: E. Pursuant to the Rail Operations Controller Program at the [facility] Pathology Department, selected slides from [...] of Pathology and Laboratory Medicine of the [facility] ([employer]) in compliance with CLIA'88 regulations. Some of these tests rely on the use of "analyte specific reagents" and are subject to specific labeling requirements by the FDA. Known positive and negative control tissues demonstrate appropriate staining. This testing was developed by the Department of Pathology and Laboratory Medicine of the [facility]. It has not been cleared or approved by the FDA. The FDA has determined that such clearance or approval is not necessary. COLONOSCOPY (10/04/2016 8:01 AM) Component Value Range Provation Report Patient Name: Raghu Vázquez Procedure Date: 10/04/2016 8:01 AM [facility]: [id number] Date of : 1960 Gender: Male Attending Physician: Jeremi Hicks MD Procedure: Colonoscopy Indications: Hi story of IC valve polyp seen from outside colonoscopy, biopsies of which showed adxenoma - presents for possible rescection. Providers: Jeremi Hicks MD (Doctor), Yana Basilio RN (Nurse), Ricardo Lucas, Stoker Installer (Stoker Installer), Hollie Wang MD (Fellow) Referring Physician: Corwin [...] 36 seconds Procedure Code(s): --- Professional --- 14757, Colonoscopy, flexible; with biopsy, single or multiple Diagnosis Code(s): --- Professional --- K64.8, Other hemorrhoids K63.5, Polyp of colon CPT copyright 2015 [employer] [place] [employer]. All rights reserved. The codes documented in this report are preliminary and upon street photographer review may be revised to meet current [...] ID Moderate growth RODOLFO ALBICANS Specimen Esophageal [place] Organism Antibiotic Method Susceptibility Moderate growth rodolfo [...] Vázquez Procedure Date: 10/04/2016 7:31 AM CSN: [id number] Date of : 1960 Gender: Male Attending Physician: Jeremi Hicks MD Procedure: Upper GI endoscopy Indications: Dy sphagia, History of celiac disease. Providers: Jeremi Hicks MD (Doctor), Yana Basilio RN (Nurse), Ricardo Lucas, Stoker Installer (Stoker Installer), Hollie Wang MD (Fellow) Referring Physician: Corwin [...] 6 seconds Procedure Code(s): --- Professional --- 64562, Esophagogastroduodenoscopy, flexible, transoral; with biopsy, single or multiple Diagnosis Code(s): --- Professional --- B37.81, Candidal esophagitis K22.2, Esophageal obstruction K31.7, Polyp of stomach and duodenum R13.10, Dysphagia, unspecified CPT copyright 2015 [employer] [place] [employer]. All rights reserved. The codes documented in this report are preliminary and upon street photographer review may be revised to meet current [...]
[2016-12-02 06:20] VITALS: BP 133/83
[2016-12-02] MEDS ORDERED: ceFAZolin 2 GM/50 ML NS 50 ML IV ONE (06:54)
[2016-12-02] MEDS ORDERED: ETOMIDATE IV SOLN 20 MG/10 ML VIAL ONE (06:55)
[2016-12-02] MEDS ORDERED: MIDAZOLAM 2 MG/2 ML (VERSED) VIAL ONE (06:55)
[2016-12-02] MEDS ORDERED: fentaNYL INJECTION 100 MCG/2 ML AMP ONE (06:55)
[2016-12-02] MEDS ORDERED: FAMOTIDINE 20MG/2ML IV (PEPCID) ONE (06:55)
[2016-12-02] MEDS ORDERED: ONDANSETRON 4 MG/2 ML (SDV) Z0FRAN ONE (06:55)
[2016-12-02] MEDS ORDERED: DEXAMETHASONE PF 10 MG/ML (DECADRON) VIAL ONE (06:55)
[2016-12-02] MEDS ORDERED: SEVOFLURANE (ULTANE) 15 ML INHAL SOLN ONE ×3 (06:55→08:00)
[2016-12-02] MEDS ORDERED: diphenhydrAMINE 50 MG/ML INJ (BENADRYL) ONE (06:55)
[2016-12-02] MEDS ORDERED: LACTATED RINGERS 1,000 ML IV ONE (06:55)
[2016-12-02] MEDS: LACTATED RINGERS 1,000 ML IV PRN ×2 (07:00→08:00)
[2016-12-02] MEDS ORDERED: BUPIVACAINE 0.5% 30 ML (SENSORCAINE) VIAL ONE (07:09)
[2016-12-02] MEDS ORDERED: HEParin (CENTRAL IV FLUSH) 500 UNIT/5 ML SYR ONE (07:09)
[2016-12-02] MEDS ORDERED: LIDOCAINE 1% INJ 20 ML (XYLOCAINE) VIAL ONE (07:10)
[2016-12-02] MEDS ORDERED: 0.9% SODIUM CHLORIDE PF INJ 20 ML VIAL ONE (07:10)
[2016-12-02] MEDS ORDERED: ceFAZolin 2 GM/NS 50 ML IV ONE (07:15)
--- NOTE | 2016-12-02 07:45 | Progress Note-Pre Operative ---
Pre-Operative Progress Note H&P Reviewed The H&P was reviewed, patient examined and no changes noted. Date H&P Reviewed: Dec 02, 2016 Time H&P Reviewed: 07:45 Pre-Operative Diagnosis: colon cancer RENAN DECKER DO Dec 02, 2016 07:45
--- NOTE | 2016-12-02 08:32 | Progress Note-Post Operative ---
Post-Operative Progess Note Pre-Operative Diagnosis colon cancer Post-Operative Diagnosis same Post-Op Procedure Note Date of Procedure: Dec 02, 2016 Name of Procedure: right IJ port placement using u/s guidance Procedure Note/Findings see note Anesthesia Type per credit collections rep Estimated blood loss (mL): minimal Specimen(s) collected none RENAN DECKER DO Dec 02, 2016 8:32 am
[2016-12-02] MEDS ORDERED: MEPERIDINE (DEMEROL) INJ 50 MG/ML IVP PRN (08:45)
[2016-12-02] MEDS ORDERED: morphine INJ 10 MG/ML 1ML (SYR OR VIAL) IVP PRN (08:45)
[2016-12-02] MEDS ORDERED: ONDANSETRON 4 MG/2 ML (SDV) Z0FRAN IVP PRN (08:45)
--- NOTE | 2016-12-02 09:21 | Diagnostic Imaging Report ---
INDICATION: Central line placement. Portable chest 9:06 AM. Right IJ Port-A-Cath tip projects over the SVC at the cavoatrial junction. Heart size and pulmonary vascularity are normal. Lungs are clear. There are no effusions or pneumothoraces. IMPRESSION: No acute abnormalities in the chest. Dictated by: Dictated on workstation # [id number]
[2016-12-02 09:35] VITALS: BP 137/82
[2016-12-02 10:05] VITALS: BP 142/86
--- NOTE | 2016-12-02 11:52 | PROCEDURE REPORT ---
PROCEDURE PHYSICIAN: RENAN FARLEY DATE OF PROCEDURE: 12/02/2016 PREOPERATIVE DIAGNOSIS: Colon cancer. POSTOPERATIVE DIAGNOSIS: Colon cancer. PROCEDURE: Right internal jugular vein port placement using ultrasound guidance. SURGEON: Dr. Farley. ANESTHESIA: Per BEHAVIORIST. ESTIMATED BLOOD LOSS: Minimal. COMPLICATIONS: None. INDICATIONS: The patient is a 56-year-old male with colon cancer. He had undergone colon resection. He wished to proceed with port placement for chemotherapy. The patient understands the risks and benefits of the procedure and wishes to proceed with the procedure. Consent was signed on the chart. PROCEDURE: The patient was taken to the operating suite. He was prepped and draped in sterile fashion. A surgical pause was performed. Using ultrasound, the right internal jugular vein and was located. Local anesthetic was infiltrated just anterior to it. Using ultrasound and the micro-access needle, the right internal jugular vein was accessed. Dark nonpulsatile blood was withdrawn, micro-access wire was inserted and the needle was removed. Fluoroscopy assured proper placement. The micro-access dilator was then advanced over the micro-access wire and the micro-access wire was removed and the normal guidewire was inserted. The fluoroscopy assured proper placement. This wire was then secured. Local anesthetic was used to infiltrate the neck where it is going to be tunneled in the right anterior chest for the pocket to be formed. A 15 blade scalpel was then used to make a skin incision in the right upper chest and a pocket was then created with both sharp and cautery and blunt dissection. Once the pocket was created, a small stab incision was made at the insertion point of the wire. A dilator sheath was then advanced over the guidewire under fluoroscopy and the wire and dilator were then removed. The [place] catheter was inserted through the sheath and then the sheath was removed. The [place] wire was then removed. It was attached to the tunneler and tunneled down to the right chest pocket. Fluoroscopy assured proper length which the catheter was then cut to length and secured to the port which was then placed within the pocket. The port was then accessed and flushed without difficulty, first with saline and then with heparin. The subcutaneous tissues were then reapproximated using 3-0 Vicryl and the skin was then closed using 4-0 Vicryl. The area was then washed dried and Mastisol and Steri-Strips were applied. Sterile bandage was applied. The Dermabond was then placed over the neck stab incision. The patient tolerated the procedure well without any complications and was taken to the recovery room in stable condition. Chest x-ray is pending. Job ID: [id number] Dictated Date: 12/02/2016 08:39:11 Research Management Associate Date: 12/02/2016 11:44:14 / linh
--- NOTE | 2016-12-02 12:38 | Diagnostic Imaging Report ---
INDICATION: Central venous Access. IMPRESSION: 41.7 seconds of fluoroscopy was used by Dr. Farley during Port-A-Cath insertion. Two captured digital images show a right IJ Port-A-Cath with tip projecting over the SVC at the cavoatrial junction. Dictated by: Dictated on workstation # [id number]
== END 2016-12-02 10:25 | disposition home or self-care (01) ==
LOC: SDC 06:03
PROVIDERS: ATTEND Surgery
DX: C18.9 Malignant neoplasm of colon, unspecified (principal); Z11.2 Encounter for screening for other bacterial diseases; E11.9 Type 2 diabetes mellitus without complications; Z79.899 Other long term (current) drug therapy
CPT/HCPCS: 71010; 87081

== ENCOUNTER 2017-02-17 14:11 | Outpatient (RCR) | payer BC ==
--- OUTSIDE RECORDS SUMMARY | 2016-11-25 08:34 | XMS REPORT | Continuity of Care Document ---
Author Author [facility] Organization [facility] Address Unknown Phone Unavailable Care Team Providers Care Filler Operator Name Role Phone Km Romero PCP [phone] Source Comments Some departments are not documenting in the electronic medical record. If you do not see the information that you expected, contact Release of Information in the Health Information Management department at [phone] for further assistance in locating additional records.[facility] Active Allergies and Adverse Reactions Allergen Noted Date Severity Reactions Comments Aspirin 09/12/2016 High ANAPHYLAXIS [place] 09/20/2016 Low STOMACH UPSET Egg 09/20/2016 High [...] May repeat in 5-15 minutes if needed. OMEPRAZOLE PO Take 1 Cap by mouth twice Active daily. Active Problems Problem Noted Date Malignant neoplasm of ascending colon (HCC) 11/14/2016 Celiac disease 11/14/2016 Eosinophilic esophagitis 11/14/2016 Most Recent Encounters Date Type Specialty Providers Description 11/14/2016 Office Visit Gastroenterology Corwin Lind MD Malignant neoplasm of ascending colon (HCC) (Primary Dx); Celiac disease; Eosinophilic esophagitis 10/25/2016 Telephone Gastroenterology Corwin Lind MD Follow-up Phone Call 10/22/2016 [facility] Jeremi Hicks MD Dysphagia Encounter 10/22/2016 Surgery Jeremi Hicks MD Canceled ESOPHAGOGASTRODUODENOSCOP Y 10/09/2016 Telephone Gastroenterology Mya Moe Appointment Request - EGD - [facility] 10/08/2016 Prep for Case Jeremi Gottlieb MD 10/08/2016 Telephone Gastroenterology Jeremi Hicks MD Other - repeat EGD 10/08/2016 Telephone Gastroenterology Corwin Lind MD Provider Discussion About Patient 10/04/2016 [facility] Jeremi Hicks MD Dysphagia Encounter 10/04/2016 Endo Rslt Enc Corwin Hernandez MD 10/04/2016 Endo Rslt Enc Corwin Hernandez MD 10/04/2016 Surgery Jeremi Hicks MD COLONOSCOPY and EGD with Dr. Hicks for dysphagia, h/o EOE and Ileocecal valve polyp. Needs PAT prior on separate day. 09/20/2016 PAC Office Anesthesiology Corwin Lind MD Preop cardiovascular exam Visit (Primary Dx); Preop testing 09/20/2016 Anesthesia Bia Worley, BANK OPERATIONS OFFICER Event 09/19/2016 Telephone Gastroenterology Jeremi Hicks MD Patient Questions 09/16/2016 Telephone Gastroenterology Mya Moe Appointment Request - EGD/Colonoscopy - [facility] 09/12/2016 Office Visit Gastroenterology Corwin Lind [...] Vital Sign Reading Time Taken Blood Pressure 132/84 11/14/2016 11:03 AM CHEF DE PARTIE Pulse 85 11/14/2016 11:03 AM CHEF DE PARTIE Temperature 36.8 C (98.3 F) 11/14/2016 11:03 AM CHEF DE PARTIE Respiratory Rate 16 11/14/2016 11:03 AM CHEF DE PARTIE Height 1.93 m (6' 4") 11/14/2016 11:03 AM CHEF DE PARTIE Weight 90.266 kg (199 lb) 11/14/2016 11:03 AM CHE[employer] DE PARTIE Body Mass Index 24.23 11/14/2016 11:03 AM CHEF DE PARTIE Oxygen Saturation 99% 10/04/2016 9:07 AM [employer] DE PARTIE Plan of Care Health Maintenance Due Date Last Done Comments Hepatitis C Screening 1960 Physical (Comprehensive) 1968 Exam Pertussis Vaccine 1972 Tetanus Vaccine 1978 Influenza Vaccine 06/13/2016 Colorectal Cancer 10/04/2026 10/04/2016, 10/04/2016 Screening Procedures from Last 3 Months Procedure Name Priority Date/Time Associated Diagnosis Comments TELEMETRY STRIPS-SCAN 10/08/2016 Results for this 12:11 PM [employer] DE [employer]IE procedure are in the results section. ESOPHAGOGASTRODUODENOSCOP 10/04/2016 Dysphagia Y BIOPSY 7:30 AM CHEF DE PARTIE ESOPHAGOGASTRODUODENOSCOP 10/04/2016 Dysphagia Y & Colonoscopy with 7:30 AM CHEF DE PARTIE Fabiola for dysphagia, h/o EOE and Ileocecal valve polyp. Needs PAT prior on separate day. COLONOSCOPY and EGD with 10/04/[address] Hicks for 7:30 AM CHEF DE PARTIE dysphagia, h/o EOE and Ileocecal valve polyp. Needs PAT prior on separate day. Results from Last 3 Months TELEMETRY STRIPS-SCAN (10/08/2016 12:11 PM) Narrative Ordered by an unspecified provider. SURGICAL PATHOLOGY (10/04/2016 8:59 AM) Component Value Range PATHOLOGY REPORT [facility] [email or web address] Apryl Bernardo MD, PhD, Director of Anatomic Pathology Department of Pathology and Laboratory Medicine [address] [place] [id number] Surgical Pathology Office: [phone] SURGICAL PATHOLOGY REPORT NAME: MENDY AGOSTO SURG PATH #: [id number] MR #: [id number] SPECIMEN CLASS: SR BILLING #: [id number] ALT ID #: LOCATION: GIEND DATE OF PROCEDURE: 10/04/2016 AGE: 56 SEX: [...] See comment. Comment: E. Pursuant to the Well Reactivator Operator Program at the [facility] Pathology Department, selected slides from this [...] of Pathology and Laboratory Medicine of the [facility] ([employer]) in compliance with CLIA'88 regulations. Some of these tests rely on the use of "analyte specific reagents" and are subject to specific labeling requirements by the FDA. Known positive and negative control tissues demonstrate appropriate staining. This testing was developed by the Department of Pathology and Laboratory Medicine of the [facility]. It has not been cleared or approved by the FDA. The FDA has determined that such clearance or approval is not necessary. COLONOSCOPY (10/04/2016 8:01 AM) Component Value Range Provation Report Patient Name: Raghu Vázquez Procedure Date: 10/04/2016 8:01 AM [facility]: [id number] Date of : 1960 Gender: Male Attending Physician: Jeremi Hicks MD Procedure: Colonoscopy Indications: Hi story of IC valve polyp seen from outside colonoscopy, biopsies of which showed adxenoma - presents for possible rescection. Providers: Jeremi Hicks MD (Doctor), Yana Basilio RN (Nurse), Ricardo Lucas, Road Manager (Road Manager), Hollie Wang MD (Fellow) Referring Physician: Corwin [...] 36 seconds Procedure Code(s): --- Professional --- 47254, Colonoscopy, flexible; with biopsy, single or multiple Diagnosis Code(s): --- Professional --- K64.8, Other hemorrhoids K63.5, Polyp of colon CPT copyright 2015 [employer]. All rights reserved. The codes documented in this report are preliminary and upon bartender manager review may be revised to meet current [...] ID Moderate growth RODOLFO ALBICANS Specimen Esophageal [place] Organism Antibiotic Method Susceptibility Moderate growth rodolfo [...] Vázquez Procedure Date: 10/04/2016 7:31 AM CSN: [id number] Date of : 1960 Gender: Male Attending Physician: Jeremi Hicks MD Procedure: Upper GI endoscopy Indications: Dy sphagia, History of celiac disease. Providers: Jeremi Hicks MD (Doctor), Yana Basilio RN (Nurse), Ricardo Lucas, Road Manager (Road Manager), Hollie Wang MD (Fellow) Referring Physician: Corwin [...] 6 seconds Procedure Code(s): --- Professional --- 22642, Esophagogastroduodenoscopy, flexible, transoral; with biopsy, single or multiple Diagnosis Code(s): --- Professional --- B37.81, Candidal esophagitis K22.2, Esophageal obstruction K31.7, Polyp of stomach and duodenum R13.10, Dysphagia, unspecified CPT copyright 2015 [employer]. All rights reserved. The codes documented in this report are preliminary and upon bartender manager review may be revised to meet current [...]
[2016-12-09 15:19] LABS: BASOPHILS # (AUTO) 0.1 10^3/uL (0.0-0.1); BASOPHILS % (AUTO) 1 % (0-10); EOSINOPHILS # (AUTO) 0.9 10^3/uL (0.0-0.3); EOSINOPHILS % (AUTO) 9 % (0-10); LYMPHOCYTES # (AUTO) 2.3 X 10^3 (1.0-4.0); LYMPHOCYTES % (AUTO) 22 % (12-44); MEAN CORPUSCULAR HEMOGLOBIN 28 PG (25-34); MEAN CORPUSCULAR HGB CONC 33 G/DL (32-36); MEAN CORPUSCULAR VOLUME 86 FL (80-99); MEAN PLATELET VOLUME 10.2 FL (7.4-10.4); MONOCYTES % (AUTO) 9 % (0-12); NEUTROPHILS # (AUTO) 6.2 X 10^3 (1.8-7.8); NEUTROPHILS % (AUTO) 59 % (42-75); PLATELET COUNT 289 10^3/uL (130-400); RED BLOOD COUNT 4.52 10^6/uL (4.35-5.85); RED CELL DISTRIBUTION WIDTH 14.4 % (10.0-14.5); WHITE BLOOD COUNT 10.5 10^3/uL (4.3-11.0)
[2016-12-09 15:56] LABS: ALANINE AMINOTRANSFERASE 19 U/L (0-55); ALBUMIN 4.1 G/DL (3.2-4.5); ANION GAP 12 MMOL/L (5-14); ASPARTATE AMINO TRANSFERASE 16 U/L (5-34); BILIRUBIN,TOTAL 0.2 MG/DL (0.1-1.0); BLOOD UREA NITROGEN 14 MG/DL (7-18); BUN/CREATININE RATIO 17; CALCIUM 9.1 MG/DL (8.5-10.1); CARBON DIOXIDE 21 MMOL/L (21-32); CHLORIDE 104 MMOL/L (98-107); CREATININE SERUM 0.81 MG/DL (0.60-1.30); GFR ESTIMATED > 60; GLUCOSE 202 MG/DL (70-105); MAGNESIUM 2.1 MG/DL (1.8-2.4); POTASSIUM 4.2 MMOL/L (3.6-5.0); SODIUM 137 MMOL/L (135-145)
[2016-12-16 09:44] LABS: BASOPHILS # (AUTO) 0.1 10^3/uL (0.0-0.1); BASOPHILS % (AUTO) 1 % (0-10); EOSINOPHILS % (AUTO) 7 % (0-10); LYMPHOCYTES # (AUTO) 2.1 X 10^3 (1.0-4.0); LYMPHOCYTES % (AUTO) 15 % (12-44); MEAN CORPUSCULAR HEMOGLOBIN 29 PG (25-34); MEAN CORPUSCULAR HGB CONC 33 G/DL (32-36); MEAN CORPUSCULAR VOLUME 86 FL (80-99); MEAN PLATELET VOLUME 10.2 FL (7.4-10.4); MONOCYTES # (AUTO) 1.2 X 10^3 (0.0-1.0); MONOCYTES % (AUTO) 9 % (0-12); NEUTROPHILS # (AUTO) 9.3 X 10^3 (1.8-7.8); NEUTROPHILS % (AUTO) 68 % (42-75); PLATELET COUNT 359 10^3/uL (130-400); RED BLOOD COUNT 4.76 10^6/uL (4.35-5.85); RED CELL DISTRIBUTION WIDTH 13.8 % (10.0-14.5); WHITE BLOOD COUNT 13.5 10^3/uL (4.3-11.0)
[2016-12-16 10:15] LABS: ALANINE AMINOTRANSFERASE 21 U/L (0-55); ANION GAP 10 MMOL/L (5-14); ASPARTATE AMINO TRANSFERASE 19 U/L (5-34); BILIRUBIN,TOTAL 0.4 MG/DL (0.1-1.0); BLOOD UREA NITROGEN 13 MG/DL (7-18); BUN/CREATININE RATIO 13; CALCIUM 9.4 MG/DL (8.5-10.1); CARBON DIOXIDE 24 MMOL/L (21-32); CHLORIDE 102 MMOL/L (98-107); GFR ESTIMATED > 60; GLUCOSE 236 MG/DL (70-105); POTASSIUM 4.9 MMOL/L (3.6-5.0); SODIUM 136 MMOL/L (135-145)
[2016-12-23 14:35] LABS: BASOPHILS # (AUTO) 0.1 10^3/uL (0.0-0.1); BASOPHILS % (AUTO) 1 % (0-10); EOSINOPHILS # (AUTO) 0.5 10^3/uL (0.0-0.3); EOSINOPHILS % (AUTO) 5 % (0-10); LYMPHOCYTES # (AUTO) 2.3 X 10^3 (1.0-4.0); LYMPHOCYTES % (AUTO) 25 % (12-44); MEAN CORPUSCULAR HEMOGLOBIN 28 PG (25-34); MEAN CORPUSCULAR HGB CONC 33 G/DL (32-36); MEAN CORPUSCULAR VOLUME 87 FL (80-99); MEAN PLATELET VOLUME 9.3 FL (7.4-10.4); MONOCYTES # (AUTO) 0.8 X 10^3 (0.0-1.0); MONOCYTES % (AUTO) 8 % (0-12); NEUTROPHILS # (AUTO) 5.4 X 10^3 (1.8-7.8); NEUTROPHILS % (AUTO) 60 % (42-75); PLATELET COUNT 307 10^3/uL (130-400); RED BLOOD COUNT 4.55 10^6/uL (4.35-5.85); RED CELL DISTRIBUTION WIDTH 15.3 % (10.0-14.5)
[2016-12-23 15:32] LABS: ALANINE AMINOTRANSFERASE 23 U/L (0-55); ANION GAP 11 MMOL/L (5-14); ASPARTATE AMINO TRANSFERASE 22 U/L (5-34); BILIRUBIN,TOTAL 0.3 MG/DL (0.1-1.0); BLOOD UREA NITROGEN 12 MG/DL (7-18); BUN/CREATININE RATIO 14; CALCIUM 9.1 MG/DL (8.5-10.1); CARBON DIOXIDE 24 MMOL/L (21-32); CHLORIDE 105 MMOL/L (98-107); CREATININE SERUM 0.86 MG/DL (0.60-1.30); GFR ESTIMATED > 60; GLUCOSE 195 MG/DL (70-105); POTASSIUM 4.5 MMOL/L (3.6-5.0); SODIUM 140 MMOL/L (135-145); TOTAL PROTEIN 6.9 G/DL (6.4-8.2)
[2016-12-30 13:30] LABS: BASOPHILS # (AUTO) 0.1 10^3/uL (0.0-0.1); BASOPHILS % (AUTO) 1 % (0-10); EOSINOPHILS # (AUTO) 0.6 10^3/uL (0.0-0.3); EOSINOPHILS % (AUTO) 7 % (0-10); LYMPHOCYTES % (AUTO) 25 % (12-44); MEAN CORPUSCULAR HEMOGLOBIN 29 PG (25-34); MEAN CORPUSCULAR HGB CONC 33 G/DL (32-36); MEAN CORPUSCULAR VOLUME 88 FL (80-99); MEAN PLATELET VOLUME 9.2 FL (7.4-10.4); MONOCYTES # (AUTO) 0.9 X 10^3 (0.0-1.0); MONOCYTES % (AUTO) 12 % (0-12); NEUTROPHILS # (AUTO) 4.3 X 10^3 (1.8-7.8); NEUTROPHILS % (AUTO) 56 % (42-75); PLATELET COUNT 305 10^3/uL (130-400); RED BLOOD COUNT 4.19 10^6/uL (4.35-5.85); RED CELL DISTRIBUTION WIDTH 16.5 % (10.0-14.5); WHITE BLOOD COUNT 7.8 10^3/uL (4.3-11.0)
[2016-12-30 14:16] LABS: ALANINE AMINOTRANSFERASE 16 U/L (0-55); ALBUMIN 3.8 G/DL (3.2-4.5); ANION GAP 8 MMOL/L (5-14); ASPARTATE AMINO TRANSFERASE 17 U/L (5-34); BILIRUBIN,TOTAL 0.3 MG/DL (0.1-1.0); BLOOD UREA NITROGEN 11 MG/DL (7-18); BUN/CREATININE RATIO 11; CALCIUM 8.7 MG/DL (8.5-10.1); CARBON DIOXIDE 22 MMOL/L (21-32); CHLORIDE 108 MMOL/L (98-107); CREATININE SERUM 0.97 MG/DL (0.60-1.30); GFR ESTIMATED > 60; GLUCOSE 172 MG/DL (70-105); MAGNESIUM 2.1 MG/DL (1.8-2.4); POTASSIUM 4.3 MMOL/L (3.6-5.0); SODIUM 138 MMOL/L (135-145); TOTAL PROTEIN 6.7 G/DL (6.4-8.2)
[2017-01-06 14:26] LABS: BASOPHILS # (AUTO) 0.1 10^3/uL (0.0-0.1); BASOPHILS % (AUTO) 1 % (0-10); EOSINOPHILS # (AUTO) 0.7 10^3/uL (0.0-0.3); EOSINOPHILS % (AUTO) 8 % (0-10); LYMPHOCYTES # (AUTO) 2.5 X 10^3 (1.0-4.0); LYMPHOCYTES % (AUTO) 28 % (12-44); MEAN CORPUSCULAR HEMOGLOBIN 29 PG (25-34); MEAN CORPUSCULAR HGB CONC 34 G/DL (32-36); MEAN CORPUSCULAR VOLUME 87 FL (80-99); MEAN PLATELET VOLUME 9.3 FL (7.4-10.4); MONOCYTES # (AUTO) 1.1 X 10^3 (0.0-1.0); MONOCYTES % (AUTO) 13 % (0-12); NEUTROPHILS # (AUTO) 4.5 X 10^3 (1.8-7.8); NEUTROPHILS % (AUTO) 51 % (42-75); PLATELET COUNT 266 10^3/uL (130-400); RED CELL DISTRIBUTION WIDTH 16.6 % (10.0-14.5); WHITE BLOOD COUNT 8.8 10^3/uL (4.3-11.0)
[2017-01-06 16:13] LABS: ALANINE AMINOTRANSFERASE 21 U/L (0-55); ALBUMIN 4.2 G/DL (3.2-4.5); ANION GAP 7 MMOL/L (5-14); ASPARTATE AMINO TRANSFERASE 25 U/L (5-34); BILIRUBIN,TOTAL 0.4 MG/DL (0.1-1.0); BLOOD UREA NITROGEN 12 MG/DL (7-18); BUN/CREATININE RATIO 12; CALCIUM 9.3 MG/DL (8.5-10.1); CARBON DIOXIDE 28 MMOL/L (21-32); CHLORIDE 104 MMOL/L (98-107); CREATININE SERUM 0.98 MG/DL (0.60-1.30); GFR ESTIMATED > 60; GLUCOSE 140 MG/DL (70-105); POTASSIUM 4.2 MMOL/L (3.6-5.0); SODIUM 139 MMOL/L (135-145); TOTAL PROTEIN 7.3 G/DL (6.4-8.2)
[2017-01-13 10:48] LABS: BASOPHILS # (AUTO) 0.1 10^3/uL (0.0-0.1); BASOPHILS % (AUTO) 1 % (0-10); EOSINOPHILS # (AUTO) 0.5 10^3/uL (0.0-0.3); EOSINOPHILS % (AUTO) 6 % (0-10); LYMPHOCYTES # (AUTO) 1.9 X 10^3 (1.0-4.0); LYMPHOCYTES % (AUTO) 23 % (12-44); MEAN CORPUSCULAR HEMOGLOBIN 30 PG (25-34); MEAN CORPUSCULAR HGB CONC 34 G/DL (32-36); MEAN CORPUSCULAR VOLUME 87 FL (80-99); MEAN PLATELET VOLUME 8.9 FL (7.4-10.4); MONOCYTES # (AUTO) 0.8 X 10^3 (0.0-1.0); MONOCYTES % (AUTO) 10 % (0-12); NEUTROPHILS # (AUTO) 4.9 X 10^3 (1.8-7.8); NEUTROPHILS % (AUTO) 60 % (42-75); PLATELET COUNT 206 10^3/uL (130-400); RED BLOOD COUNT 4.36 10^6/uL (4.35-5.85); RED CELL DISTRIBUTION WIDTH 18.2 % (10.0-14.5); WHITE BLOOD COUNT 8.2 10^3/uL (4.3-11.0)
[2017-01-13 11:42] LABS: ALANINE AMINOTRANSFERASE 18 U/L (0-55); ALBUMIN 3.9 G/DL (3.2-4.5); ANION GAP 7 MMOL/L (5-14); ASPARTATE AMINO TRANSFERASE 23 U/L (5-34); BILIRUBIN,TOTAL 0.5 MG/DL (0.1-1.0); BLOOD UREA NITROGEN 9 MG/DL (7-18); BUN/CREATININE RATIO 9; CALCIUM 9.1 MG/DL (8.5-10.1); CARBON DIOXIDE 25 MMOL/L (21-32); CHLORIDE 107 MMOL/L (98-107); CREATININE SERUM 0.99 MG/DL (0.60-1.30); GFR ESTIMATED > 60; GLUCOSE 213 MG/DL (70-105); POTASSIUM 4.5 MMOL/L (3.6-5.0); SODIUM 139 MMOL/L (135-145); TOTAL PROTEIN 6.8 G/DL (6.4-8.2)
[2017-01-20 13:27] LABS: BASOPHILS # (AUTO) 0.1 10^3/uL (0.0-0.1); BASOPHILS % (AUTO) 1 % (0-10); EOSINOPHILS # (AUTO) 0.6 10^3/uL (0.0-0.3); EOSINOPHILS % (AUTO) 8 % (0-10); LYMPHOCYTES % (AUTO) 26 % (12-44); MEAN CORPUSCULAR HEMOGLOBIN 29 PG (25-34); MEAN CORPUSCULAR HGB CONC 33 G/DL (32-36); MEAN CORPUSCULAR VOLUME 90 FL (80-99); MEAN PLATELET VOLUME 9.4 FL (7.4-10.4); MONOCYTES # (AUTO) 1.1 X 10^3 (0.0-1.0); MONOCYTES % (AUTO) 13 % (0-12); NEUTROPHILS # (AUTO) 4.2 X 10^3 (1.8-7.8); NEUTROPHILS % (AUTO) 53 % (42-75); PLATELET COUNT 301 10^3/uL (130-400); RED BLOOD COUNT 4.02 10^6/uL (4.35-5.85); RED CELL DISTRIBUTION WIDTH 18.8 % (10.0-14.5)
[2017-01-20 14:03] LABS: ALANINE AMINOTRANSFERASE 17 U/L (0-55); ALBUMIN 3.7 G/DL (3.2-4.5); ANION GAP 9 MMOL/L (5-14); ASPARTATE AMINO TRANSFERASE 25 U/L (5-34); BILIRUBIN,TOTAL 0.4 MG/DL (0.1-1.0); BLOOD UREA NITROGEN 11 MG/DL (7-18); BUN/CREATININE RATIO 12; CALCIUM 8.9 MG/DL (8.5-10.1); CARBON DIOXIDE 19 MMOL/L (21-32); CHLORIDE 110 MMOL/L (98-107); CREATININE SERUM 0.89 MG/DL (0.60-1.30); GFR ESTIMATED > 60; GLUCOSE 139 MG/DL (70-105); MAGNESIUM 2.1 MG/DL (1.8-2.4); POTASSIUM 4.4 MMOL/L (3.6-5.0); SODIUM 138 MMOL/L (135-145); TOTAL PROTEIN 6.7 G/DL (6.4-8.2)
[2017-01-27 10:52] LABS: BASOPHILS # (AUTO) 0.1 10^3/uL (0.0-0.1); BASOPHILS % (AUTO) 1 % (0-10); EOSINOPHILS # (AUTO) 0.7 10^3/uL (0.0-0.3); EOSINOPHILS % (AUTO) 8 % (0-10); LYMPHOCYTES # (AUTO) 2.3 X 10^3 (1.0-4.0); LYMPHOCYTES % (AUTO) 24 % (12-44); MEAN CORPUSCULAR HEMOGLOBIN 30 PG (25-34); MEAN CORPUSCULAR HGB CONC 33 G/DL (32-36); MEAN CORPUSCULAR VOLUME 89 FL (80-99); MEAN PLATELET VOLUME 9.3 FL (7.4-10.4); MONOCYTES # (AUTO) 1.2 X 10^3 (0.0-1.0); MONOCYTES % (AUTO) 12 % (0-12); NEUTROPHILS # (AUTO) 5.5 X 10^3 (1.8-7.8); NEUTROPHILS % (AUTO) 56 % (42-75); PLATELET COUNT 286 10^3/uL (130-400); RED BLOOD COUNT 4.35 10^6/uL (4.35-5.85); RED CELL DISTRIBUTION WIDTH 18.7 % (10.0-14.5); WHITE BLOOD COUNT 9.8 10^3/uL (4.3-11.0)
[2017-01-27 11:49] LABS: ALANINE AMINOTRANSFERASE 18 U/L (0-55); ANION GAP 6 MMOL/L (5-14); ASPARTATE AMINO TRANSFERASE 24 U/L (5-34); BILIRUBIN,TOTAL 0.5 MG/DL (0.1-1.0); BLOOD UREA NITROGEN 12 MG/DL (7-18); BUN/CREATININE RATIO 11; CALCIUM 9.2 MG/DL (8.5-10.1); CARBON DIOXIDE 28 MMOL/L (21-32); CHLORIDE 104 MMOL/L (98-107); CREATININE SERUM 1.05 MG/DL (0.60-1.30); GFR ESTIMATED > 60; GLUCOSE 190 MG/DL (70-105); POTASSIUM 4.5 MMOL/L (3.6-5.0); SODIUM 138 MMOL/L (135-145); TOTAL PROTEIN 6.9 G/DL (6.4-8.2)
[2017-02-03 14:06] LABS: BASOPHILS # (AUTO) 0.1 10^3/uL (0.0-0.1); BASOPHILS % (AUTO) 1 % (0-10); EOSINOPHILS # (AUTO) 0.4 10^3/uL (0.0-0.3); EOSINOPHILS % (AUTO) 5 % (0-10); LYMPHOCYTES % (AUTO) 25 % (12-44); MEAN CORPUSCULAR HEMOGLOBIN 29 PG (25-34); MEAN CORPUSCULAR HGB CONC 33 G/DL (32-36); MEAN CORPUSCULAR VOLUME 90 FL (80-99); MEAN PLATELET VOLUME 8.8 FL (7.4-10.4); MONOCYTES # (AUTO) 0.8 X 10^3 (0.0-1.0); MONOCYTES % (AUTO) 9 % (0-12); NEUTROPHILS # (AUTO) 4.9 X 10^3 (1.8-7.8); NEUTROPHILS % (AUTO) 60 % (42-75); PLATELET COUNT 240 10^3/uL (130-400); RED BLOOD COUNT 4.02 10^6/uL (4.35-5.85); WHITE BLOOD COUNT 8.1 10^3/uL (4.3-11.0)
[2017-02-03 14:53] LABS: ALANINE AMINOTRANSFERASE 15 U/L (0-55); ALBUMIN 3.9 G/DL (3.2-4.5); ANION GAP 11 MMOL/L (5-14); ASPARTATE AMINO TRANSFERASE 21 U/L (5-34); BILIRUBIN,TOTAL 0.4 MG/DL (0.1-1.0); BLOOD UREA NITROGEN 9 MG/DL (7-18); BUN/CREATININE RATIO 10; CALCIUM 9.1 MG/DL (8.5-10.1); CARBON DIOXIDE 23 MMOL/L (21-32); CHLORIDE 105 MMOL/L (98-107); GFR ESTIMATED > 60; GLUCOSE 172 MG/DL (70-105); POTASSIUM 4.1 MMOL/L (3.6-5.0); SODIUM 139 MMOL/L (135-145); TOTAL PROTEIN 6.8 G/DL (6.4-8.2)
[2017-02-10 13:16] LABS: BASOPHILS # (AUTO) 0.1 10^3/uL (0.0-0.1); BASOPHILS % (AUTO) 1 % (0-10); EOSINOPHILS # (AUTO) 0.7 10^3/uL (0.0-0.3); EOSINOPHILS % (AUTO) 10 % (0-10); LYMPHOCYTES % (AUTO) 29 % (12-44); MEAN CORPUSCULAR HEMOGLOBIN 30 PG (25-34); MEAN CORPUSCULAR HGB CONC 33 G/DL (32-36); MEAN CORPUSCULAR VOLUME 91 FL (80-99); MEAN PLATELET VOLUME 8.5 FL (7.4-10.4); MONOCYTES % (AUTO) 14 % (0-12); NEUTROPHILS # (AUTO) 3.3 X 10^3 (1.8-7.8); NEUTROPHILS % (AUTO) 47 % (42-75); PLATELET COUNT 256 10^3/uL (130-400); RED BLOOD COUNT 3.98 10^6/uL (4.35-5.85); RED CELL DISTRIBUTION WIDTH 19.8 % (10.0-14.5)
[2017-02-10 13:36] LABS: ALANINE AMINOTRANSFERASE 15 U/L (0-55); ANION GAP 10 MMOL/L (5-14); ASPARTATE AMINO TRANSFERASE 18 U/L (5-34); BILIRUBIN,TOTAL 0.4 MG/DL (0.1-1.0); BLOOD UREA NITROGEN 9 MG/DL (7-18); BUN/CREATININE RATIO 11; CARBON DIOXIDE 23 MMOL/L (21-32); CHLORIDE 106 MMOL/L (98-107); CREATININE SERUM 0.85 MG/DL (0.60-1.30); GFR ESTIMATED > 60; GLUCOSE 158 MG/DL (70-105); MAGNESIUM 1.9 MG/DL (1.8-2.4); POTASSIUM 3.9 MMOL/L (3.6-5.0); SODIUM 139 MMOL/L (135-145)
[2017-02-10 13:37] LABS: ALBUMIN 3.8 G/DL (3.2-4.5); TOTAL PROTEIN 6.6 G/DL (6.4-8.2)
[~2017-02-17] VITALS: Ht 193 cm; Wt 93.9 kg
[~2017-02-17 14:11] MED LIST changes: +ALTEPLASE 2 MG (CATHFLO) CANCER CENTER IV ONE; +D5W 500 ML IV (CANCER CTR) 500 ML IV SCH; +FOSAPREPITANT 150 MG/NS 150 MG IVPB (CANCER CTR) IV PRN; +OXALIPLATIN 170 MG in D5W 250 ML IVPB (CANCER CTR) 250 ML IV SCH; +PALONOSETRON 0.25 MG, DEXAMETHASONE 10 MG/NS 50 ML IVPB IV PRN
[2017-02-17 14:36] LABS: BASOPHILS # (AUTO) 0.1 10^3/uL (0.0-0.1); BASOPHILS % (AUTO) 1 % (0-10); EOSINOPHILS # (AUTO) 0.7 10^3/uL (0.0-0.3); EOSINOPHILS % (AUTO) 9 % (0-10); LYMPHOCYTES # (AUTO) 2.2 X 10^3 (1.0-4.0); LYMPHOCYTES % (AUTO) 31 % (12-44); MEAN CORPUSCULAR HEMOGLOBIN 30 PG (25-34); MEAN CORPUSCULAR HGB CONC 33 G/DL (32-36); MEAN CORPUSCULAR VOLUME 90 FL (80-99); MEAN PLATELET VOLUME 9.4 FL (7.4-10.4); MONOCYTES # (AUTO) 0.7 X 10^3 (0.0-1.0); MONOCYTES % (AUTO) 11 % (0-12); NEUTROPHILS # (AUTO) 3.4 X 10^3 (1.8-7.8); NEUTROPHILS % (AUTO) 48 % (42-75); PLATELET COUNT 282 10^3/uL (130-400); RED CELL DISTRIBUTION WIDTH 19.8 % (10.0-14.5)
[2017-02-17 15:04] LABS: ALANINE AMINOTRANSFERASE 18 U/L (0-55); ANION GAP 7 MMOL/L (5-14); ASPARTATE AMINO TRANSFERASE 27 U/L (5-34); BILIRUBIN,TOTAL 0.5 MG/DL (0.1-1.0); BLOOD UREA NITROGEN 10 MG/DL (7-18); BUN/CREATININE RATIO 9; CARBON DIOXIDE 26 MMOL/L (21-32); CHLORIDE 107 MMOL/L (98-107); CREATININE SERUM 1.06 MG/DL (0.60-1.30); GFR ESTIMATED > 60; GLUCOSE 131 MG/DL (70-105); POTASSIUM 4.4 MMOL/L (3.6-5.0); SODIUM 140 MMOL/L (135-145); TOTAL PROTEIN 6.9 G/DL (6.4-8.2)
== END 2017-02-23 | disposition home or self-care (01) ==
LOC: ONC 14:11
PROVIDERS: ATTEND Internal Medicine Hematology & Oncology
DX: Z51.11 Encounter for antineoplastic chemotherapy (principal); C18.0 Malignant neoplasm of cecum; C77.2 Secondary and unspecified malignant neoplasm of intra-abdominal lymph nodes; E11.9 Type 2 diabetes mellitus without complications; K21.9 Gastro-esophageal reflux disease without esophagitis; J45.909 Unspecified asthma, uncomplicated; C18.9 Malignant neoplasm of colon, unspecified
CPT/HCPCS: 36415; 36591; 36593; 80053; 82378; 83735; 85025; 96367; 96375; 96413; 99195; 99213

== ENCOUNTER 2017-04-17 10:22 | Outpatient (RCR) | payer BC ==
[2017-02-24 15:28] LABS: BASOPHILS % (AUTO) 1 % (0-10); EOSINOPHILS # (AUTO) 0.6 10^3/uL (0.0-0.3); EOSINOPHILS % (AUTO) 8 % (0-10); LYMPHOCYTES % (AUTO) 29 % (12-44); MEAN CORPUSCULAR HEMOGLOBIN 30 PG (25-34); MEAN CORPUSCULAR HGB CONC 33 G/DL (32-36); MEAN CORPUSCULAR VOLUME 91 FL (80-99); MEAN PLATELET VOLUME 8.2 FL (7.4-10.4); MONOCYTES # (AUTO) 0.5 X 10^3 (0.0-1.0); MONOCYTES % (AUTO) 7 % (0-12); NEUTROPHILS # (AUTO) 3.8 X 10^3 (1.8-7.8); NEUTROPHILS % (AUTO) 55 % (42-75); PLATELET COUNT 266 10^3/uL (130-400); RED BLOOD COUNT 4.03 10^6/uL (4.35-5.85)
[2017-02-24 16:12] LABS: ANION GAP 5 MMOL/L (5-14); BLOOD UREA NITROGEN 9 MG/DL (7-18); BUN/CREATININE RATIO 10; CALCIUM 9.1 MG/DL (8.5-10.1); CARBON DIOXIDE 29 MMOL/L (21-32); CHLORIDE 105 MMOL/L (98-107); CREATININE SERUM 0.93 MG/DL (0.60-1.30); GFR ESTIMATED > 60; GLUCOSE 154 MG/DL (70-105); POTASSIUM 4.3 MMOL/L (3.6-5.0); SODIUM 139 MMOL/L (135-145)
[2017-03-03 13:31] LABS: BASOPHILS # (AUTO) 0.1 10^3/uL (0.0-0.1); BASOPHILS % (AUTO) 1 % (0-10); EOSINOPHILS # (AUTO) 0.5 10^3/uL (0.0-0.3); EOSINOPHILS % (AUTO) 7 % (0-10); LYMPHOCYTES # (AUTO) 2.4 X 10^3 (1.0-4.0); LYMPHOCYTES % (AUTO) 32 % (12-44); MEAN CORPUSCULAR HEMOGLOBIN 30 PG (25-34); MEAN CORPUSCULAR HGB CONC 33 G/DL (32-36); MEAN CORPUSCULAR VOLUME 91 FL (80-99); MEAN PLATELET VOLUME 9.2 FL (7.4-10.4); MONOCYTES % (AUTO) 13 % (0-12); NEUTROPHILS # (AUTO) 3.6 X 10^3 (1.8-7.8); NEUTROPHILS % (AUTO) 48 % (42-75); PLATELET COUNT 279 10^3/uL (130-400); RED BLOOD COUNT 3.76 10^6/uL (4.35-5.85); RED CELL DISTRIBUTION WIDTH 20.9 % (10.0-14.5); WHITE BLOOD COUNT 7.5 10^3/uL (4.3-11.0)
[2017-03-03 13:50] LABS: ALANINE AMINOTRANSFERASE 15 U/L (0-55); ALBUMIN 3.8 G/DL (3.2-4.5); ANION GAP 7 MMOL/L (5-14); ASPARTATE AMINO TRANSFERASE 22 U/L (5-34); BILIRUBIN,TOTAL 0.5 MG/DL (0.1-1.0); BLOOD UREA NITROGEN 8 MG/DL (7-18); BUN/CREATININE RATIO 8; CALCIUM 8.9 MG/DL (8.5-10.1); CARBON DIOXIDE 25 MMOL/L (21-32); CHLORIDE 107 MMOL/L (98-107); CREATININE SERUM 0.95 MG/DL (0.60-1.30); GFR ESTIMATED > 60; GLUCOSE 162 MG/DL (70-105); MAGNESIUM 2.1 MG/DL (1.8-2.4); POTASSIUM 3.9 MMOL/L (3.6-5.0); SODIUM 139 MMOL/L (135-145); TOTAL PROTEIN 6.5 G/DL (6.4-8.2)
[2017-03-24 14:01] LABS: BASOPHILS # (AUTO) 0.1 10^3/uL (0.0-0.1); BASOPHILS % (AUTO) 1 % (0-10); EOSINOPHILS # (AUTO) 0.6 10^3/uL (0.0-0.3); EOSINOPHILS % (AUTO) 8 % (0-10); LYMPHOCYTES # (AUTO) 1.9 X 10^3 (1.0-4.0); LYMPHOCYTES % (AUTO) 25 % (12-44); MEAN CORPUSCULAR HEMOGLOBIN 31 PG (25-34); MEAN CORPUSCULAR HGB CONC 33 G/DL (32-36); MEAN CORPUSCULAR VOLUME 94 FL (80-99); MEAN PLATELET VOLUME 8.4 FL (7.4-10.4); MONOCYTES # (AUTO) 1.1 X 10^3 (0.0-1.0); MONOCYTES % (AUTO) 14 % (0-12); NEUTROPHILS # (AUTO) 3.9 X 10^3 (1.8-7.8); NEUTROPHILS % (AUTO) 52 % (42-75); PLATELET COUNT 317 10^3/uL (130-400); RED BLOOD COUNT 3.52 10^6/uL (4.35-5.85); RED CELL DISTRIBUTION WIDTH 22.4 % (10.0-14.5); WHITE BLOOD COUNT 7.6 10^3/uL (4.3-11.0)
[2017-03-24 14:50] LABS: ALANINE AMINOTRANSFERASE 18 U/L (0-55); ALBUMIN 3.8 G/DL (3.2-4.5); ANION GAP 10 MMOL/L (5-14); ASPARTATE AMINO TRANSFERASE 25 U/L (5-34); BILIRUBIN,TOTAL 0.5 MG/DL (0.1-1.0); BLOOD UREA NITROGEN 9 MG/DL (7-18); BUN/CREATININE RATIO 10; CALCIUM 8.9 MG/DL (8.5-10.1); CARBON DIOXIDE 22 MMOL/L (21-32); CHLORIDE 106 MMOL/L (98-107); CREATININE SERUM 0.87 MG/DL (0.60-1.30); GFR ESTIMATED > 60; GLUCOSE 164 MG/DL (70-105); POTASSIUM 3.9 MMOL/L (3.6-5.0); SODIUM 138 MMOL/L (135-145); TOTAL PROTEIN 6.7 G/DL (6.4-8.2)
[~2017-04-17] VITALS: Ht 193 cm; Wt 93.4 kg
[~2017-04-17 10:22] MED LIST changes: -ALTEPLASE 2 MG (CATHFLO) CANCER CENTER IV ONE; +OXALIPLATIN 160 MG in D5W 250 ML IVPB (CANCER CTR) 250 ML IV SCH
[2017-04-17 10:42] LABS: BASOPHILS # (AUTO) 0.1 10^3/uL (0.0-0.1); BASOPHILS % (AUTO) 1 % (0-10); EOSINOPHILS # (AUTO) 0.7 10^3/uL (0.0-0.3); EOSINOPHILS % (AUTO) 9 % (0-10); LYMPHOCYTES # (AUTO) 2.1 X 10^3 (1.0-4.0); LYMPHOCYTES % (AUTO) 25 % (12-44); MEAN CORPUSCULAR HEMOGLOBIN 30 PG (25-34); MEAN CORPUSCULAR HGB CONC 32 G/DL (32-36); MEAN CORPUSCULAR VOLUME 94 FL (80-99); MEAN PLATELET VOLUME 8.6 FL (7.4-10.4); MONOCYTES # (AUTO) 1.4 X 10^3 (0.0-1.0); MONOCYTES % (AUTO) 16 % (0-12); NEUTROPHILS # (AUTO) 4.2 X 10^3 (1.8-7.8); NEUTROPHILS % (AUTO) 50 % (42-75); PLATELET COUNT 358 10^3/uL (130-400); RED BLOOD COUNT 3.83 10^6/uL (4.35-5.85); RED CELL DISTRIBUTION WIDTH 22.6 % (10.0-14.5); WHITE BLOOD COUNT 8.5 10^3/uL (4.3-11.0)
[2017-04-17 11:29] LABS: ALANINE AMINOTRANSFERASE 23 U/L (0-55); ALBUMIN 3.9 GM/DL (3.2-4.5); ANION GAP 6 MMOL/L (5-14); ASPARTATE AMINO TRANSFERASE 32 U/L (5-34); BILIRUBIN,TOTAL 0.6 MG/DL (0.1-1.0); BLOOD UREA NITROGEN 7 MG/DL (7-18); BUN/CREATININE RATIO 8; CALCIUM 9.1 MG/DL (8.5-10.1); CARBON DIOXIDE 26 MMOL/L (21-32); CHLORIDE 106 MMOL/L (98-107); CREATININE SERUM 0.88 MG/DL (0.60-1.30); GFR ESTIMATED > 60; GLUCOSE 172 MG/DL (70-105); MAGNESIUM 2.2 MG/DL (1.8-2.4); POTASSIUM 3.9 MMOL/L (3.6-5.0); SODIUM 138 MMOL/L (135-145); TOTAL PROTEIN 7.3 GM/DL (6.4-8.2)
== END 2017-05-25 | disposition home or self-care (01) ==
LOC: ONC 10:22
PROVIDERS: ATTEND Internal Medicine Hematology & Oncology
DX: Z51.11 Encounter for antineoplastic chemotherapy (principal); C18.0 Malignant neoplasm of cecum; C77.2 Secondary and unspecified malignant neoplasm of intra-abdominal lymph nodes; E11.9 Type 2 diabetes mellitus without complications; K21.9 Gastro-esophageal reflux disease without esophagitis; J45.909 Unspecified asthma, uncomplicated; Z79.899 Other long term (current) drug therapy
CPT/HCPCS: 36415; 36591; 80048; 80053; 82378; 83735; 85025; 96367; 96375; 96413; 99213

== ENCOUNTER 2017-07-07 09:24 | Outpatient (RCR) | payer BC ==
[~2017-07-07 09:24] MED LIST changes: -D5W 500 ML IV (CANCER CTR) 500 ML IV SCH; -FOSAPREPITANT 150 MG/NS 150 MG IVPB (CANCER CTR) IV PRN; -OXALIPLATIN 160 MG in D5W 250 ML IVPB (CANCER CTR) 250 ML IV SCH; -OXALIPLATIN 170 MG in D5W 250 ML IVPB (CANCER CTR) 250 ML IV SCH; -PALONOSETRON 0.25 MG, DEXAMETHASONE 10 MG/NS 50 ML IVPB IV PRN
[2017-07-07 09:44] LABS: BASOPHILS # (AUTO) 0.1 10^3/uL (0.0-0.1); BASOPHILS % (AUTO) 1 % (0-10); EOSINOPHILS # (AUTO) 0.6 10^3/uL (0.0-0.3); EOSINOPHILS % (AUTO) 7 % (0-10); LYMPHOCYTES # (AUTO) 2.3 X 10^3 (1.0-4.0); LYMPHOCYTES % (AUTO) 26 % (12-44); MEAN CORPUSCULAR HEMOGLOBIN 25 PG (25-34); MEAN CORPUSCULAR HGB CONC 31 G/DL (32-36); MEAN CORPUSCULAR VOLUME 80 FL (80-99); MEAN PLATELET VOLUME 9.7 FL (7.4-10.4); MONOCYTES # (AUTO) 0.9 X 10^3 (0.0-1.0); MONOCYTES % (AUTO) 10 % (0-12); NEUTROPHILS % (AUTO) 57 % (42-75); PLATELET COUNT 424 10^3/uL (130-400); RED BLOOD COUNT 4.46 10^6/uL (4.35-5.85); RED CELL DISTRIBUTION WIDTH 16.9 % (10.0-14.5); WHITE BLOOD COUNT 8.8 10^3/uL (4.3-11.0)
[2017-07-07 10:13] LABS: ALANINE AMINOTRANSFERASE 31 U/L (0-55); ANION GAP 7 MMOL/L (5-14); ASPARTATE AMINO TRANSFERASE 27 U/L (5-34); BILIRUBIN,TOTAL 0.3 MG/DL (0.1-1.0); BLOOD UREA NITROGEN 10 MG/DL (7-18); BUN/CREATININE RATIO 11; CALCIUM 9.1 MG/DL (8.5-10.1); CARBON DIOXIDE 25 MMOL/L (21-32); CHLORIDE 105 MMOL/L (98-107); CREATININE SERUM 0.93 MG/DL (0.60-1.30); GFR ESTIMATED > 60; GLUCOSE 249 MG/DL (70-105); POTASSIUM 4.1 MMOL/L (3.6-5.0); SODIUM 137 MMOL/L (135-145); TOTAL PROTEIN 7.5 GM/DL (6.4-8.2)
== END 2017-07-12 | disposition home or self-care (01) ==
LOC: ONC 09:24
PROVIDERS: ATTEND Internal Medicine Hematology & Oncology
DX: C18.0 Malignant neoplasm of cecum (principal); C77.2 Secondary and unspecified malignant neoplasm of intra-abdominal lymph nodes; E11.9 Type 2 diabetes mellitus without complications; K21.9 Gastro-esophageal reflux disease without esophagitis; J45.909 Unspecified asthma, uncomplicated; Z79.899 Other long term (current) drug therapy
CPT/HCPCS: 36591; 80053; 82378; 85025

== ENCOUNTER 2017-09-29 10:28 | Outpatient (RCR) | payer BC ==
[2017-08-11 10:46] LABS: BASOPHILS # (AUTO) 0.1 10^3/uL (0.0-0.1); BASOPHILS % (AUTO) 1 % (0-10); EOSINOPHILS # (AUTO) 0.5 10^3/uL (0.0-0.3); EOSINOPHILS % (AUTO) 5 % (0-10); HEMATOCRIT 38 % (40-54); HEMOGLOBIN 12.2 G/DL (13.3-17.7); LYMPHOCYTES # (AUTO) 2.5 X 10^3 (1.0-4.0); LYMPHOCYTES % (AUTO) 23 % (12-44); MEAN CORPUSCULAR HEMOGLOBIN 24 PG (25-34); MEAN CORPUSCULAR HGB CONC 32 G/DL (32-36); MEAN CORPUSCULAR VOLUME 75 FL (80-99); MEAN PLATELET VOLUME 9.1 FL (7.4-10.4); MONOCYTES % (AUTO) 9 % (0-12); NEUTROPHILS # (AUTO) 6.6 X 10^3 (1.8-7.8); NEUTROPHILS % (AUTO) 62 % (42-75); PLATELET COUNT 409 10^3/uL (130-400); RED BLOOD COUNT 5.12 10^6/uL (4.35-5.85); RED CELL DISTRIBUTION WIDTH 16.4 % (10.0-14.5); WHITE BLOOD COUNT 10.7 10^3/uL (4.3-11.0)
[2017-08-11 11:09] LABS: ALANINE AMINOTRANSFERASE 38 U/L (0-55); ALBUMIN 4.3 GM/DL (3.2-4.5); ALKALINE PHOSPHATASE 106 U/L (40-136); BILIRUBIN,TOTAL 0.3 MG/DL (0.1-1.0); BUN/CREATININE RATIO 12; CALCIUM 9.5 MG/DL (8.5-10.1); CARBON DIOXIDE 25 MMOL/L (21-32); CHLORIDE 104 MMOL/L (98-107); CREATININE SERUM 0.95 MG/DL (0.60-1.30); GFR ESTIMATED > 60; GLUCOSE 160 MG/DL (70-105); POTASSIUM 4.3 MMOL/L (3.6-5.0); SODIUM 139 MMOL/L (135-145)
[2017-09-29 10:54] LABS: BASOPHILS # (AUTO) 0.1 10^3/uL (0.0-0.1); BASOPHILS % (AUTO) 1 % (0-10); EOSINOPHILS # (AUTO) 0.7 10^3/uL (0.0-0.3); EOSINOPHILS % (AUTO) 7 % (0-10); HEMATOCRIT 36 % (40-54); HEMOGLOBIN 11.2 G/DL (13.3-17.7); LYMPHOCYTES # (AUTO) 2.5 X 10^3 (1.0-4.0); LYMPHOCYTES % (AUTO) 25 % (12-44); MEAN CORPUSCULAR HEMOGLOBIN 23 PG (25-34); MEAN CORPUSCULAR HGB CONC 31 G/DL (32-36); MEAN CORPUSCULAR VOLUME 74 FL (80-99); MEAN PLATELET VOLUME 9.3 FL (7.4-10.4); MONOCYTES # (AUTO) 1.1 X 10^3 (0.0-1.0); MONOCYTES % (AUTO) 11 % (0-12); NEUTROPHILS # (AUTO) 5.8 X 10^3 (1.8-7.8); NEUTROPHILS % (AUTO) 56 % (42-75); PLATELET COUNT 401 10^3/uL (130-400); RED BLOOD COUNT 4.87 10^6/uL (4.35-5.85); RED CELL DISTRIBUTION WIDTH 18.1 % (10.0-14.5); WHITE BLOOD COUNT 10.2 10^3/uL (4.3-11.0)
[2017-09-29 11:14] LABS: ALANINE AMINOTRANSFERASE 36 U/L (0-55); ALBUMIN 3.9 GM/DL (3.2-4.5); ALKALINE PHOSPHATASE 93 U/L (40-136); BILIRUBIN,TOTAL 0.3 MG/DL (0.1-1.0); BUN/CREATININE RATIO 12; CALCIUM 8.7 MG/DL (8.5-10.1); CARBON DIOXIDE 26 MMOL/L (21-32); CHLORIDE 104 MMOL/L (98-107); CREATININE SERUM 0.99 MG/DL (0.60-1.30); GFR ESTIMATED > 60; GLUCOSE 267 MG/DL (70-105); SODIUM 136 MMOL/L (135-145); TOTAL PROTEIN 7.2 GM/DL (6.4-8.2)
== END 2017-11-09 | disposition home or self-care (01) ==
LOC: ONC 10:28
PROVIDERS: ATTEND Internal Medicine Hematology & Oncology
DX: C18.0 Malignant neoplasm of cecum (principal); C77.2 Secondary and unspecified malignant neoplasm of intra-abdominal lymph nodes; E11.9 Type 2 diabetes mellitus without complications; K21.9 Gastro-esophageal reflux disease without esophagitis; J45.909 Unspecified asthma, uncomplicated; Z79.899 Other long term (current) drug therapy
CPT/HCPCS: 36591; 80053; 82378; 82728; 83540; 85025

== ENCOUNTER 2017-12-22 09:12 | Outpatient (RCR) | payer BC ==
[2017-12-22 09:39] LABS: BASOPHILS # (AUTO) 0.1 10^3/uL (0.0-0.1); BASOPHILS % (AUTO) 1 % (0-10); EOSINOPHILS # (AUTO) 0.6 10^3/uL (0.0-0.3); EOSINOPHILS % (AUTO) 6 % (0-10); HEMATOCRIT 46 % (40-54); HEMOGLOBIN 15.4 G/DL (13.3-17.7); LYMPHOCYTES % (AUTO) 19 % (12-44); MEAN CORPUSCULAR HEMOGLOBIN 28 PG (25-34); MEAN CORPUSCULAR HGB CONC 34 G/DL (32-36); MEAN CORPUSCULAR VOLUME 83 FL (80-99); MEAN PLATELET VOLUME 9.6 FL (7.4-10.4); MONOCYTES # (AUTO) 1.1 X 10^3 (0.0-1.0); MONOCYTES % (AUTO) 10 % (0-12); NEUTROPHILS # (AUTO) 7.1 X 10^3 (1.8-7.8); NEUTROPHILS % (AUTO) 65 % (42-75); PLATELET COUNT 317 10^3/uL (130-400); RED CELL DISTRIBUTION WIDTH 18.2 % (10.0-14.5); WHITE BLOOD COUNT 10.8 10^3/uL (4.3-11.0)
[2017-12-22 10:02] LABS: ALANINE AMINOTRANSFERASE 30 U/L (0-55); ALBUMIN 4.1 GM/DL (3.2-4.5); ALKALINE PHOSPHATASE 91 U/L (40-136); BILIRUBIN,TOTAL 0.4 MG/DL (0.1-1.0); BUN/CREATININE RATIO 14; CALCIUM 9.1 MG/DL (8.5-10.1); CARBON DIOXIDE 24 MMOL/L (21-32); CHLORIDE 105 MMOL/L (98-107); CREATININE SERUM 1.07 MG/DL (0.60-1.30); GFR ESTIMATED > 60; GLUCOSE 260 MG/DL (70-105); POTASSIUM 4.3 MMOL/L (3.6-5.0); SODIUM 136 MMOL/L (135-145); TOTAL PROTEIN 7.2 GM/DL (6.4-8.2)
== END 2018-03-22 | disposition home or self-care (01) ==
LOC: ONC 09:12
PROVIDERS: ATTEND Internal Medicine Hematology & Oncology
DX: C18.0 Malignant neoplasm of cecum (principal); C77.2 Secondary and unspecified malignant neoplasm of intra-abdominal lymph nodes; E11.9 Type 2 diabetes mellitus without complications; K21.9 Gastro-esophageal reflux disease without esophagitis; J45.909 Unspecified asthma, uncomplicated; Z79.899 Other long term (current) drug therapy
CPT/HCPCS: 36591; 80053; 82378; 85025

== ENCOUNTER → 2018-03-23 | Outpatient (CLI) | payer BC ==
[~2018-03-23] MED LIST changes: +BARIUM SUSPENSION 2.1% (VANILLA SILQ) 450 ML PO ONE; +CATHETER FLUSH 10 ML SYR IV PRN; +IOHEXOL 350 MG/ML 100 ML (OMNIPAQUE 350) VIAL IV ONE; +NS 250 ML (IVPB) BAG IV ONE
--- NOTE | 2018-03-23 12:23 | Diagnostic Imaging Report ---
PROCEDURE: CT chest with contrast, CT abdomen and pelvis with and without contrast. TECHNIQUE: Pre and post intravenous contrast axial imaging of the abdomen and pelvis and post contrast axial imaging of the chest were performed. INDICATION: History of colon cancer. COMPARISON: Exam comparison limited to a CT fusion PET 10/22/2016. FINDINGS: CHEST: No suspicious pulmonary nodule or lung mass. There is no hilar or mediastinal lymphadenopathy. No acute soft tissue or osseous chest wall pathology. No effusion or pneumothorax. Lungs clear. Central venous catheter is in the lower SVC. ABDOMEN AND PELVIS: There is no identifiable large or small bowel mass. Portions of the colon are poorly distended limiting its evaluation. Liver, gallbladder, adrenals, spleen and pancreas were unremarkable. There is no pathological appearing abdominal, pelvic, mesenteric or retroperitoneal nodes. There is no ascites, abscess, hematoma or fluid collection. The osseous structures were nonacute. No suspicious lytic or sclerotic lesion. IMPRESSION: CHEST: Negative. ABDOMEN AND PELVIS: 1. No mass, adenopathy, fluid collection or ascites. Very poor distention of the right colon severely limiting its evaluation. Would suggest a fluoroscopic enema or optical colonoscopy to more satisfactorily evaluate that segment of bowel. 2. The remaining abdomen and pelvis was normal. Dictated by: Dictated on workstation # [id number]
== END ==
LOC: RAD 11:30
PROVIDERS: ATTEND Internal Medicine Hematology & Oncology
DX: Z85.038 Personal history of other malignant neoplasm of large intestine (principal)
CPT/HCPCS: 71260; 74178

== ENCOUNTER 2018-03-30 13:28 | Outpatient (RCR) | payer BC ==
[2018-03-23 11:21] LABS: BASOPHILS # (AUTO) 0.1 10^3/uL (0.0-0.1); BASOPHILS % (AUTO) 1 % (0-10); EOSINOPHILS # (AUTO) 0.7 10^3/uL (0.0-0.3); EOSINOPHILS % (AUTO) 7 % (0-10); HEMATOCRIT 45 % (40-54); HEMOGLOBIN 15.5 G/DL (13.3-17.7); LYMPHOCYTES # (AUTO) 2.4 X 10^3 (1.0-4.0); LYMPHOCYTES % (AUTO) 26 % (12-44); MEAN CORPUSCULAR HEMOGLOBIN 30 PG (25-34); MEAN CORPUSCULAR HGB CONC 34 G/DL (32-36); MEAN CORPUSCULAR VOLUME 88 FL (80-99); MEAN PLATELET VOLUME 9.4 FL (7.4-10.4); MONOCYTES # (AUTO) 0.9 X 10^3 (0.0-1.0); MONOCYTES % (AUTO) 10 % (0-12); NEUTROPHILS # (AUTO) 5.2 X 10^3 (1.8-7.8); NEUTROPHILS % (AUTO) 56 % (42-75); PLATELET COUNT 269 10^3/uL (130-400); RED BLOOD COUNT 5.17 10^6/uL (4.35-5.85); RED CELL DISTRIBUTION WIDTH 14.2 % (10.0-14.5); WHITE BLOOD COUNT 9.3 10^3/uL (4.3-11.0)
[2018-03-23 11:41] LABS: ALANINE AMINOTRANSFERASE 31 U/L (0-55); ALBUMIN 4.2 GM/DL (3.2-4.5); ALKALINE PHOSPHATASE 83 U/L (40-136); BILIRUBIN,TOTAL 0.7 MG/DL (0.1-1.0); BUN/CREATININE RATIO 16; CALCIUM 9.3 MG/DL (8.5-10.1); CARBON DIOXIDE 23 MMOL/L (21-32); CHLORIDE 107 MMOL/L (98-107); GFR ESTIMATED > 60; GLUCOSE 167 MG/DL (70-105); POTASSIUM 4.2 MMOL/L (3.6-5.0); SODIUM 140 MMOL/L (135-145); TOTAL PROTEIN 7.3 GM/DL (6.4-8.2)
[~2018-03-30 13:28] MED LIST changes: -BARIUM SUSPENSION 2.1% (VANILLA SILQ) 450 ML PO ONE; -CATHETER FLUSH 10 ML SYR IV PRN; -IOHEXOL 350 MG/ML 100 ML (OMNIPAQUE 350) VIAL IV ONE; -NS 250 ML (IVPB) BAG IV ONE
== END 2018-04-02 09:23 | disposition home or self-care (01) ==
LOC: ONC 13:28
PROVIDERS: ATTEND Internal Medicine Hematology & Oncology
DX: C18.0 Malignant neoplasm of cecum (principal); C77.2 Secondary and unspecified malignant neoplasm of intra-abdominal lymph nodes; D50.9 Iron deficiency anemia, unspecified; E11.9 Type 2 diabetes mellitus without complications; K21.9 Gastro-esophageal reflux disease without esophagitis; J45.909 Unspecified asthma, uncomplicated; Z79.899 Other long term (current) drug therapy
CPT/HCPCS: 36591; 80053; 82378; 82728; 85025; 99213

== ENCOUNTER 2018-05-11 16:07 | Outpatient (RCR) | payer BC | END 2018-05-12 | disposition home or self-care (01) | LOC: ONC 16:07 | PROVIDERS: ATTEND Internal Medicine Hematology & Oncology | DX: C18.0 Malignant neoplasm of cecum (principal); C77.2 Secondary and unspecified malignant neoplasm of intra-abdominal lymph nodes; E11.9 Type 2 diabetes mellitus without complications; K21.9 Gastro-esophageal reflux disease without esophagitis; J45.909 Unspecified asthma, uncomplicated; Z79.899 Other long term (current) drug therapy; Z45.2 Encounter for adjustment and management of vascular access device | CPT/HCPCS: 96523 ==

== ENCOUNTER → 2018-05-29 | Outpatient (CLI) | payer BC ==
[2018-05-29 08:53] LABS: ALANINE AMINOTRANSFERASE 32 U/L (0-55); ALBUMIN 4.5 GM/DL (3.2-4.5); ALKALINE PHOSPHATASE 78 U/L (40-136); BILIRUBIN,TOTAL 0.6 MG/DL (0.1-1.0); BUN/CREATININE RATIO 16; CALCIUM 9.8 MG/DL (8.5-10.1); CARBON DIOXIDE 25 MMOL/L (21-32); CHLORIDE 105 MMOL/L (98-107); CHOLESTEROL 187 MG/DL (< 200); CREATININE SERUM 0.91 MG/DL (0.60-1.30); GFR ESTIMATED > 60; GLUCOSE 170 MG/DL (70-105); HDL CHOLESTEROL 50 MG/DL (40-60); POTASSIUM 4.3 MMOL/L (3.6-5.0); SODIUM 138 MMOL/L (135-145); TOTAL PROTEIN 7.7 GM/DL (6.4-8.2); TRIGLYCERIDES 86 MG/DL (<150); VLDL CHOLESTEROL 17 MG/DL (5-40)
== END ==
LOC: LAB 08:20
PROVIDERS: ATTEND Internal Medicine Endocrinology, Diabetes & Metabolism
DX: G62.9 Polyneuropathy, unspecified (principal); E11.9 Type 2 diabetes mellitus without complications
CPT/HCPCS: 36415; 80053; 80061; 82043; 82607; 84443

== ENCOUNTER 2018-07-20 12:36 | Outpatient (RCR) | payer BC ==
[2018-07-13 09:33] LABS: BASOPHILS # (AUTO) 0.1 10^3/uL (0.0-0.1); BASOPHILS % (AUTO) 1 % (0-10); EOSINOPHILS # (AUTO) 0.7 10^3/uL (0.0-0.3); EOSINOPHILS % (AUTO) 6 % (0-10); HEMATOCRIT 45 % (40-54); HEMOGLOBIN 15.3 G/DL (13.3-17.7); LYMPHOCYTES # (AUTO) 2.3 X 10^3 (1.0-4.0); LYMPHOCYTES % (AUTO) 21 % (12-44); MEAN CORPUSCULAR HEMOGLOBIN 30 PG (25-34); MEAN CORPUSCULAR HGB CONC 34 G/DL (32-36); MEAN CORPUSCULAR VOLUME 88 FL (80-99); MEAN PLATELET VOLUME 9.2 FL (7.4-10.4); MONOCYTES % (AUTO) 9 % (0-12); NEUTROPHILS # (AUTO) 6.9 X 10^3 (1.8-7.8); NEUTROPHILS % (AUTO) 63 % (42-75); PLATELET COUNT 294 10^3/uL (130-400); RED BLOOD COUNT 5.14 10^6/uL (4.35-5.85); RED CELL DISTRIBUTION WIDTH 13.2 % (10.0-14.5)
[2018-07-13 09:47] LABS: ALANINE AMINOTRANSFERASE 22 U/L (0-55); ALBUMIN 4.2 GM/DL (3.2-4.5); ALKALINE PHOSPHATASE 78 U/L (40-136); BILIRUBIN,TOTAL 0.3 MG/DL (0.1-1.0); BUN/CREATININE RATIO 20; CALCIUM 9.6 MG/DL (8.5-10.1); CARBON DIOXIDE 22 MMOL/L (21-32); CHLORIDE 105 MMOL/L (98-107); CREATININE SERUM 0.93 MG/DL (0.60-1.30); GFR ESTIMATED > 60; GLUCOSE 188 MG/DL (70-105); POTASSIUM 4.3 MMOL/L (3.6-5.0); SODIUM 136 MMOL/L (135-145); TOTAL PROTEIN 7.3 GM/DL (6.4-8.2)
== END 2018-10-11 | disposition still patient (30) ==
LOC: ONC 12:36
PROVIDERS: ATTEND Internal Medicine Hematology & Oncology
DX: C18.0 Malignant neoplasm of cecum (principal); C77.2 Secondary and unspecified malignant neoplasm of intra-abdominal lymph nodes; E11.9 Type 2 diabetes mellitus without complications; K21.9 Gastro-esophageal reflux disease without esophagitis; J45.909 Unspecified asthma, uncomplicated; Z79.899 Other long term (current) drug therapy
CPT/HCPCS: 36415; 80053; 82378; 85025; 99213

== ENCOUNTER 2018-10-19 01:04 | Outpatient (RCR) | payer BC ==
[2018-10-19 13:51] LABS: BASOPHILS # (AUTO) 0.1 10^3/uL (0.0-0.1); BASOPHILS % (AUTO) 1 % (0-10); EOSINOPHILS # (AUTO) 0.5 10^3/uL (0.0-0.3); EOSINOPHILS % (AUTO) 4 % (0-10); HEMATOCRIT 46 % (40-54); HEMOGLOBIN 15.4 G/DL (13.3-17.7); LYMPHOCYTES # (AUTO) 2.4 X 10^3 (1.0-4.0); LYMPHOCYTES % (AUTO) 21 % (12-44); MEAN CORPUSCULAR HEMOGLOBIN 29 PG (25-34); MEAN CORPUSCULAR HGB CONC 33 G/DL (32-36); MEAN CORPUSCULAR VOLUME 88 FL (80-99); MEAN PLATELET VOLUME 9.3 FL (7.4-10.4); MONOCYTES % (AUTO) 9 % (0-12); NEUTROPHILS # (AUTO) 7.5 X 10^3 (1.8-7.8); NEUTROPHILS % (AUTO) 66 % (42-75); PLATELET COUNT 303 10^3/uL (130-400); RED CELL DISTRIBUTION WIDTH 12.8 % (10.0-14.5); WHITE BLOOD COUNT 11.4 10^3/uL (4.3-11.0)
[2018-10-19 14:17] LABS: ALANINE AMINOTRANSFERASE 19 U/L (0-55); ALBUMIN 4.3 GM/DL (3.2-4.5); ALKALINE PHOSPHATASE 77 U/L (40-136); BILIRUBIN,TOTAL 0.4 MG/DL (0.1-1.0); BUN/CREATININE RATIO 14; CALCIUM 9.5 MG/DL (8.5-10.1); CARBON DIOXIDE 24 MMOL/L (21-32); CHLORIDE 105 MMOL/L (98-107); CREATININE SERUM 1.11 MG/DL (0.60-1.30); GFR ESTIMATED > 60; GLUCOSE 175 MG/DL (70-105); POTASSIUM 4.5 MMOL/L (3.6-5.0); SODIUM 138 MMOL/L (135-145); TOTAL PROTEIN 7.9 GM/DL (6.4-8.2)
== END 2019-01-17 | disposition home or self-care (01) ==
LOC: ONC 01:04
PROVIDERS: ATTEND Internal Medicine Hematology & Oncology
DX: C18.0 Malignant neoplasm of cecum (principal); C77.2 Secondary and unspecified malignant neoplasm of intra-abdominal lymph nodes; E11.9 Type 2 diabetes mellitus without complications; K21.9 Gastro-esophageal reflux disease without esophagitis; J45.909 Unspecified asthma, uncomplicated; Z79.899 Other long term (current) drug therapy
CPT/HCPCS: 36591; 80053; 82378; 85025

== ENCOUNTER 2019-04-12 10:18 | Outpatient (RCR) | payer BC ==
[2019-01-18 14:37] LABS: BASOPHILS % (AUTO) 0 % (0-10); EOSINOPHILS # (AUTO) 0.4 10^3/uL (0.0-0.3); EOSINOPHILS % (AUTO) 4 % (0-10); HEMATOCRIT 43 % (40-54); HEMOGLOBIN 14.5 G/DL (13.3-17.7); LYMPHOCYTES # (AUTO) 2.1 X 10^3 (1.0-4.0); LYMPHOCYTES % (AUTO) 19 % (12-44); MEAN CORPUSCULAR HEMOGLOBIN 30 PG (25-34); MEAN CORPUSCULAR HGB CONC 34 G/DL (32-36); MEAN CORPUSCULAR VOLUME 87 FL (80-99); MEAN PLATELET VOLUME 9.1 FL (7.4-10.4); MONOCYTES % (AUTO) 9 % (0-12); NEUTROPHILS # (AUTO) 7.6 X 10^3 (1.8-7.8); NEUTROPHILS % (AUTO) 68 % (42-75); PLATELET COUNT 282 10^3/uL (130-400); RED CELL DISTRIBUTION WIDTH 13.3 % (10.0-14.5); WHITE BLOOD COUNT 11.1 10^3/uL (4.3-11.0)
[2019-01-18 14:57] LABS: ALANINE AMINOTRANSFERASE 21 U/L (0-55); ALBUMIN 4.1 GM/DL (3.2-4.5); ALKALINE PHOSPHATASE 70 U/L (40-136); BILIRUBIN,TOTAL 0.3 MG/DL (0.1-1.0); BUN/CREATININE RATIO 17; CALCIUM 9.4 MG/DL (8.5-10.1); CARBON DIOXIDE 24 MMOL/L (21-32); CHLORIDE 106 MMOL/L (98-107); CREATININE SERUM 1.03 MG/DL (0.60-1.30); GFR ESTIMATED > 60; GLUCOSE 170 MG/DL (70-105); POTASSIUM 3.8 MMOL/L (3.6-5.0); SODIUM 138 MMOL/L (135-145); TOTAL PROTEIN 6.7 GM/DL (6.4-8.2)
[~2019-04-12 10:18] MED LIST changes: -BARIUM SUSPENSION 2.1% (VANILLA SILQ) 450 ML PO ONE; -HOLD METFORMIN - RECEIVED CONTRAST 20 ML VIAL IV SCH; -IOHEXOL 350 MG/ML 100 ML (OMNIPAQUE 350) VIAL IV ONE; -NS 100 ML (IVPB) BAG IV ONE
[2019-04-12 10:38] LABS: BASOPHILS # (AUTO) 0.1 10^3/uL (0.0-0.1); BASOPHILS % (AUTO) 1 % (0-10); EOSINOPHILS # (AUTO) 0.6 10^3/uL (0.0-0.3); EOSINOPHILS % (AUTO) 6 % (0-10); HEMATOCRIT 43 % (40-54); HEMOGLOBIN 14.6 G/DL (13.3-17.7); LYMPHOCYTES # (AUTO) 2.2 X 10^3 (1.0-4.0); LYMPHOCYTES % (AUTO) 24 % (12-44); MEAN CORPUSCULAR HEMOGLOBIN 29 PG (25-34); MEAN CORPUSCULAR HGB CONC 34 G/DL (32-36); MEAN CORPUSCULAR VOLUME 87 FL (80-99); MEAN PLATELET VOLUME 9.2 FL (7.4-10.4); MONOCYTES # (AUTO) 0.9 X 10^3 (0.0-1.0); MONOCYTES % (AUTO) 11 % (0-12); NEUTROPHILS # (AUTO) 5.1 X 10^3 (1.8-7.8); NEUTROPHILS % (AUTO) 58 % (42-75); PLATELET COUNT 268 10^3/uL (130-400); RED CELL DISTRIBUTION WIDTH 13.1 % (10.0-14.5); WHITE BLOOD COUNT 8.8 10^3/uL (4.3-11.0)
[2019-04-12 11:01] LABS: ALANINE AMINOTRANSFERASE 22 U/L (0-55); ALBUMIN 4.2 GM/DL (3.2-4.5); ALKALINE PHOSPHATASE 72 U/L (40-136); BILIRUBIN,TOTAL 0.4 MG/DL (0.1-1.0); BUN/CREATININE RATIO 16; CALCIUM 9.3 MG/DL (8.5-10.1); CARBON DIOXIDE 26 MMOL/L (21-32); CHLORIDE 105 MMOL/L (98-107); CREATININE SERUM 0.95 MG/DL (0.60-1.30); GFR ESTIMATED > 60; GLUCOSE 158 MG/DL (70-105); POTASSIUM 4.3 MMOL/L (3.6-5.0); SODIUM 138 MMOL/L (135-145)
== END 2019-04-18 | disposition home or self-care (01) ==
LOC: ONC 10:18
PROVIDERS: ATTEND Internal Medicine Hematology & Oncology
DX: C18.0 Malignant neoplasm of cecum (principal); C77.2 Secondary and unspecified malignant neoplasm of intra-abdominal lymph nodes; E11.9 Type 2 diabetes mellitus without complications; K21.9 Gastro-esophageal reflux disease without esophagitis; J45.909 Unspecified asthma, uncomplicated; Z79.899 Other long term (current) drug therapy
CPT/HCPCS: 36591; 80053; 82378; 82728; 85025

== ENCOUNTER → 2019-04-12 | Outpatient (CLI) | payer BC ==
[~2019-04-12] MED LIST changes: +BARIUM SUSPENSION 2.1% (VANILLA SILQ) 450 ML PO ONE; +HOLD METFORMIN - RECEIVED CONTRAST 20 ML VIAL IV SCH; +IOHEXOL 350 MG/ML 100 ML (OMNIPAQUE 350) VIAL IV ONE; +NS 100 ML (IVPB) BAG IV ONE
--- NOTE | 2019-04-12 12:05 | Diagnostic Imaging Report ---
PROCEDURE: CT abdomen and pelvis with and without contrast. TECHNIQUE: Precontrast acquisitions were acquired through the abdomen and pelvis. Multiple contiguous axial images were obtained through the abdomen and pelvis after the administration of intravenous contrast. Auto Exposure Controls were utilized during the CT exam to meet ALARA standards for radiation dose reduction. INDICATION: History of colon cancer. COMPARISON: CT from 03/23/2018 FINDINGS: The lung bases demonstrate dependent atelectasis. No masses are seen. The heart is normal in size. The liver demonstrates no focal lesions. The spleen appears normal. The pancreas appears normal. The adrenal glands are normal. The kidneys appear normal with no masses or hydronephrosis. No renal calculi seen. There is a mild gordon mesentery appearance in the midabdomen, with a few scattered lymph nodes are stable since the prior study and do not appear enlarged by size criteria. The bowel loops are nondistended without obstruction seen. Postsurgical changes are noted at the cecum. There is stool in the colon, but no definitive masses are identified. There are portions of the colon which are decompressed, particularly the transverse and sigmoid colon. No free fluid or free air is seen. No acute osseous abnormality is seen. There is a peripheral sclerotic 6 mm lesion in the right iliac which is stable since October 2016. IMPRESSION: 1. Post surgical changes at the cecum with no masses seen. 2. No lymphadenopathy is seen. 3. Nonspecific mild "gordon mesentery" appearance. This can be seen with mesenteric panniculitis. Dictated by: Dictated on workstation # [id number]
== END ==
LOC: RAD 10:37
PROVIDERS: ATTEND Internal Medicine Hematology & Oncology
DX: C18.9 Malignant neoplasm of colon, unspecified (principal); Z98.890 Other specified postprocedural states
CPT/HCPCS: 74178

== ENCOUNTER 2019-04-19 10:05 | Outpatient (RCR) | payer BC | END 2019-07-18 | disposition home or self-care (01) | LOC: ONC 10:05 | PROVIDERS: ATTEND Internal Medicine Hematology & Oncology | DX: C18.0 Malignant neoplasm of cecum (principal); C77.2 Secondary and unspecified malignant neoplasm of intra-abdominal lymph nodes; E11.9 Type 2 diabetes mellitus without complications; K21.9 Gastro-esophageal reflux disease without esophagitis; J45.909 Unspecified asthma, uncomplicated; Z79.899 Other long term (current) drug therapy | CPT/HCPCS: 99213 ==

== ENCOUNTER 2019-07-26 14:23 | Outpatient (RCR) | payer BC ==
[2019-07-19 14:06] LABS: BASOPHILS # (AUTO) 0.1 10^3/uL (0.0-0.1); BASOPHILS % (AUTO) 1 % (0-10); EOSINOPHILS # (AUTO) 0.5 10^3/uL (0.0-0.3); EOSINOPHILS % (AUTO) 5 % (0-10); HEMATOCRIT 45 % (40-54); LYMPHOCYTES # (AUTO) 2.3 X 10^3 (1.0-4.0); LYMPHOCYTES % (AUTO) 24 % (12-44); MEAN CORPUSCULAR HEMOGLOBIN 29 PG (25-34); MEAN CORPUSCULAR HGB CONC 34 G/DL (32-36); MEAN CORPUSCULAR VOLUME 86 FL (80-99); MEAN PLATELET VOLUME 9.6 FL (7.4-10.4); MONOCYTES % (AUTO) 10 % (0-12); NEUTROPHILS # (AUTO) 5.8 X 10^3 (1.8-7.8); NEUTROPHILS % (AUTO) 60 % (42-75); PLATELET COUNT 261 10^3/uL (130-400); RED CELL DISTRIBUTION WIDTH 13.1 % (10.0-14.5); WHITE BLOOD COUNT 9.6 10^3/uL (4.3-11.0)
[2019-07-19 14:34] LABS: ALANINE AMINOTRANSFERASE 19 U/L (0-55); ALBUMIN 4.2 GM/DL (3.2-4.5); ALKALINE PHOSPHATASE 86 U/L (40-136); BILIRUBIN,TOTAL 0.4 MG/DL (0.1-1.0); BUN/CREATININE RATIO 19; CALCIUM 9.3 MG/DL (8.5-10.1); CARBON DIOXIDE 28 MMOL/L (21-32); CHLORIDE 105 MMOL/L (98-107); CREATININE SERUM 0.98 MG/DL (0.60-1.30); GFR ESTIMATED > 60; GLUCOSE 135 MG/DL (70-105); POTASSIUM 4.3 MMOL/L (3.6-5.0); SODIUM 140 MMOL/L (135-145); TOTAL PROTEIN 7.3 GM/DL (6.4-8.2)
[2019-08-24] MEDS ORDERED: SITA100T12 PO (14:10)
[2019-08-24] MEDS ORDERED: MOME13HF IH (14:10)
== END 2019-10-17 | disposition home or self-care (01) ==
LOC: ONC 14:23
PROVIDERS: ATTEND Internal Medicine Hematology & Oncology
DX: C18.0 Malignant neoplasm of cecum (principal); C77.2 Secondary and unspecified malignant neoplasm of intra-abdominal lymph nodes; E11.9 Type 2 diabetes mellitus without complications; K21.9 Gastro-esophageal reflux disease without esophagitis; Z79.899 Other long term (current) drug therapy; Z92.21 Personal history of antineoplastic chemotherapy; R17 Unspecified jaundice; D50.9 Iron deficiency anemia, unspecified; Z86.2 Personal history of diseases of the blood and blood-forming organs and certain disorders involving the immune mechanism
CPT/HCPCS: 36591; 80053; 82378; 85025; 99213

== ENCOUNTER 2019-08-24 11:14 | Outpatient (CLI) | payer BC ==
[~2019-08-24] VITALS: Ht 193 cm; Wt 93.2 kg
[2019-08-24] MEDS ORDERED: SITA100T12 PO (14:10)
[2019-08-24] MEDS ORDERED: MOME13HF IH (14:10)
== END 2019-08-24 14:33 | disposition home or self-care (01) ==
LOC: PREOP 11:14
PROVIDERS: ATTEND Surgery
DX: Z01.818 Encounter for other preprocedural examination (principal)

== ENCOUNTER 2019-08-27 06:22 | Day surgery (SDC) | payer BC ==
[~2019-08-27] VITALS: Ht 193 cm; Wt 93.2 kg
[2019-08-27] VITALS (9 sets, daily range): BP systolic 119–137; BP diastolic 69–86
[~2019-08-27 06:22] MED LIST changes: +MOME13HF IH; +SITA100T12 PO
[2019-08-27] MEDS ORDERED: LACTATED RINGERS 1,000 ML IV PRN (06:34)
[2019-08-27] MEDS ORDERED: ceFAZolin INJECTION 1,000 MG in WATER (STERILE) FOR INJECTION 10 ML IV ONE (06:45)
[2019-08-27] MEDS ORDERED: BUP/EPI 0.5% 1:200,000 (MARCAINE) 10ML VIAL IJ ONE (07:14)
--- NOTE | 2019-08-27 08:12 | Progress Note-Pre Operative ---
Pre-Operative Progress Note H&P Reviewed The H&P was reviewed, patient examined and no changes noted. Date Seen by Provider: Aug 27, 2019 Time Seen by Provider: 07:40 Date H&P Reviewed: Aug 27, 2019 Time H&P Reviewed: 07:40 Pre-Operative Diagnosis: history colon cancer RENAN DECKER DO Aug 27, 2019 08:12 POS
[2019-08-27] MEDS ORDERED: fentaNYL INJECTION 100 MCG/2 ML AMP ONE (08:37)
[2019-08-27] MEDS ORDERED: proPOfol 200 MG/20 ML (DIPRIVAN) VIAL IV ONE ×2 (08:37→09:11)
[2019-08-27] MEDS ORDERED: MIDAZOLAM 2 MG/2 ML (VERSED) VIAL ONE (08:37)
[2019-08-27] MEDS ORDERED: LIDOCAINE PF 2% 5 ML (XYLOCAINE) VIAL ONE (08:37)
--- NOTE | 2019-08-27 09:24 | Discharge Inst-Simple/Standard ---
Discharge Inst-Standard Patient Instructions/Follow Up Plan of Care/Instructions/FU: 2 weeks Miguelito Activity as Tolerated: Yes Discharge Diet: Regular Diet Other Inst to Patient Follow up Appt: Make appointment for 2 week. Instructions: May shower in 24 hours, no tub bath or soaking. No Smoking Skin/Wound Care: You have special glue over incisions it will fall off on its own. Symptoms to Report: Appetite Changes, Extremity Discoloration, Numbness/Tingling, Swelling Increased, Bleeding Excessive, Eyesight Changes, Pain Increased, Urine Color Change, Constipation(Persistent), Fever over 101 degree F, Pain/Pressure in chest, Urinating Difficulty, Cough Up/Vomit Blood, Heart Beat Irreg/Pounding, Pa in/Pressure in jaw, Vaginal Bleeding Increase, Cramps in feet or legs, Lightheadedness, Pain/Pressure in shoulder, Diarrhea(Persistent), Memory Changes Suddenly, Questions/Concerns, Weight gain consecutive days, Dizziness/Fainting, Nausea/Vomiting, Shortness of Breath, Weight gain over 2 pounds If questions or concerns contact your physician Or seek help at emergency department. RENAN DECKER DO Aug 27, 2019 09:24 POS
[2019-08-27] MEDS ORDERED: ONDANSETRON 4 MG/2 ML (SDV) Z0FRAN IVP PRN (09:30)
[2019-08-27] MEDS ORDERED: HYDROmorphone 2 MG/ML VIAL (DILAUDID) IV ONE (09:30)
--- NOTE | 2019-08-27 13:26 | Anesthesia-General Post-Op ---
MAC Patient Condition Mental Status/LOC: Same as Preop Cardiovascular: Satisfactory Nausea/Vomiting: Absent Respiratory: Satisfactory Pain: Controlled Complications: Absent Post Op Complications Complications None Follow Up Care/Instructions Patient Instructions None needed. Anesthesiology Discharge Order Discharge Order Patient is doing well, no complaints, stable vital signs, no apparent adverse anesthesia problems. No complications reported per nursing. ZURI BENOIT CRNA Aug 27, 2019 13:26 POS
--- NOTE | 2019-08-27 13:36 | OPERATIVE REPORT ---
DATE OF SERVICE: 08/27/2019 PREOPERATIVE DIAGNOSIS: History of colon cancer. POSTOPERATIVE DIAGNOSIS: History of colon cancer. PROCEDURE: Port removal. SURGEON: Renan Farley DO ANESTHESIA: MAC with local. ESTIMATED BLOOD LOSS: Minimal. COMPLICATIONS: None. INDICATIONS: The patient is a 58-year-old male with port that he is no longer using. He understands risks and benefits of procedure and wished to proceed with procedure. Consent was signed in the chart. DESCRIPTION OF PROCEDURE: The patient was taken to the operating suite, was prepped and draped in sterile fashion. Surgical pause was performed. Local anesthetic was infiltrated around the port. A 15 blade scalpel was used to make a skin incision and subcutaneous tissue was then dissected through until the port was encountered. Once encountered, it was mobilized and freed and port was able to be removed in its entirety. Subcutaneous tissues were then reapproximated using 3-0 Vicryl. Skin was then closed using 4-0 Monocryl in subcuticular fashion. The chest was then washed and dried and Skin Affix was placed over the incisions. The patient tolerated procedure well without any complications, taken to recovery room in stable condition. Job ID: [id number] DocumentID: [id number] Dictated Date: 08/27/2019 09:17:41 Secondary Special Education Teacher Date: 08/27/2019 13:35:39 Dictated By: RENAN FARLEY DO
== END 2019-08-27 11:10 | disposition home or self-care (01) ==
LOC: SDC 06:22
PROVIDERS: ATTEND Surgery
DX: Z45.2 Encounter for adjustment and management of vascular access device (principal); Z85.038 Personal history of other malignant neoplasm of large intestine; K21.9 Gastro-esophageal reflux disease without esophagitis; E11.9 Type 2 diabetes mellitus without complications; F41.9 Anxiety disorder, unspecified; Z79.82 Long term (current) use of aspirin; Z91.040 Latex allergy status; Z91.012 Allergy to eggs; Z91.018 Allergy to other foods; Z88.8 Allergy status to other drugs, medicaments and biological substances; Z79.4 Long term (current) use of insulin; Z79.899 Other long term (current) drug therapy; Z88.1 Allergy status to other antibiotic agents; Z88.7 Allergy status to serum and vaccine; Z88.6 Allergy status to analgesic agent; Z91.013 Allergy to seafood; J45.909 Unspecified asthma, uncomplicated; Z80.0 Family history of malignant neoplasm of digestive organs; Z82.49 Family history of ischemic heart disease and other diseases of the circulatory system; Z80.41 Family history of malignant neoplasm of ovary; Z90.49 Acquired absence of other specified parts of digestive tract
CPT/HCPCS: 82962; 87081

== ENCOUNTER → 2019-11-30 | Outpatient (CLI) | payer BC ==
[2019-11-30 09:20] LABS: ALANINE AMINOTRANSFERASE 20 U/L (0-55); ALBUMIN 4.3 GM/DL (3.2-4.5); ALKALINE PHOSPHATASE 83 U/L (40-136); BILIRUBIN,TOTAL 0.5 MG/DL (0.1-1.0); BUN/CREATININE RATIO 17; CALCIUM 9.6 MG/DL (8.5-10.1); CARBON DIOXIDE 25 MMOL/L (21-32); CHLORIDE 107 MMOL/L (98-107); CHOLESTEROL 183 MG/DL (< 200); CREATININE SERUM 0.99 MG/DL (0.60-1.30); GFR ESTIMATED > 60; GLUCOSE 151 MG/DL (70-105); HDL CHOLESTEROL 48 MG/DL (40-60); POTASSIUM 4.4 MMOL/L (3.6-5.0); SODIUM 140 MMOL/L (135-145); TOTAL PROTEIN 7.5 GM/DL (6.4-8.2); TRIGLYCERIDES 87 MG/DL (<150); VLDL CHOLESTEROL 17 MG/DL (5-40)
== END ==
LOC: LAB 08:37
PROVIDERS: ATTEND Internal Medicine Endocrinology, Diabetes & Metabolism
DX: E11.9 Type 2 diabetes mellitus without complications (principal)
CPT/HCPCS: 36415; 80053; 80061

== ENCOUNTER 2020-01-31 15:04 | Outpatient (RCR) | payer BC ==
[~2020-01-31 15:04] MED LIST changes: +ACHD5005 PO; -HYDR-3062 PO
[2020-01-31 15:14] LABS: BASOPHILS # (AUTO) 0.1 10^3/uL (0.0-0.1); BASOPHILS % (AUTO) 1 % (0-10); EOSINOPHILS # (AUTO) 0.6 10^3/uL (0.0-0.3); EOSINOPHILS % (AUTO) 6 % (0-10); HEMATOCRIT 44 % (40-54); HEMOGLOBIN 14.7 G/DL (13.3-17.7); LYMPHOCYTES # (AUTO) 2.2 X 10^3 (1.0-4.0); LYMPHOCYTES % (AUTO) 20 % (12-44); MEAN CORPUSCULAR HEMOGLOBIN 29 PG (25-34); MEAN CORPUSCULAR HGB CONC 33 G/DL (32-36); MEAN CORPUSCULAR VOLUME 87 FL (80-99); MEAN PLATELET VOLUME 9.3 FL (7.4-10.4); MONOCYTES # (AUTO) 1.3 X 10^3 (0.0-1.0); MONOCYTES % (AUTO) 11 % (0-12); NEUTROPHILS # (AUTO) 6.9 X 10^3 (1.8-7.8); NEUTROPHILS % (AUTO) 62 % (42-75); PLATELET COUNT 267 10^3/uL (130-400); RED CELL DISTRIBUTION WIDTH 13.3 % (10.0-14.5); WHITE BLOOD COUNT 11.1 10^3/uL (4.3-11.0)
[2020-01-31 15:35] LABS: ALANINE AMINOTRANSFERASE 22 U/L (0-55); ALBUMIN 4.1 GM/DL (3.2-4.5); ALKALINE PHOSPHATASE 87 U/L (40-136); BILIRUBIN,TOTAL 0.4 MG/DL (0.1-1.0); BUN/CREATININE RATIO 22; CALCIUM 9.1 MG/DL (8.5-10.1); CARBON DIOXIDE 26 MMOL/L (21-32); CHLORIDE 105 MMOL/L (98-107); CREATININE SERUM 0.93 MG/DL (0.60-1.30); GFR ESTIMATED > 60; GLUCOSE 136 MG/DL (70-105); POTASSIUM 4.4 MMOL/L (3.6-5.0); SODIUM 138 MMOL/L (135-145); TOTAL PROTEIN 7.4 GM/DL (6.4-8.2)
== END 2020-04-30 | disposition home or self-care (01) ==
LOC: ONC 15:04
PROVIDERS: ATTEND Internal Medicine Hematology & Oncology
DX: C18.0 Malignant neoplasm of cecum (principal); C77.2 Secondary and unspecified malignant neoplasm of intra-abdominal lymph nodes; E11.9 Type 2 diabetes mellitus without complications; K21.9 Gastro-esophageal reflux disease without esophagitis; Z79.899 Other long term (current) drug therapy; Z92.21 Personal history of antineoplastic chemotherapy; R17 Unspecified jaundice; D50.9 Iron deficiency anemia, unspecified; Z86.2 Personal history of diseases of the blood and blood-forming organs and certain disorders involving the immune mechanism
CPT/HCPCS: 80053; 82378; 85025; 99213

== ENCOUNTER → 2020-06-12 | Outpatient (CLI) | payer BC ==
[2020-06-12 07:42] LABS: CHLORIDE 107 MMOL/L (98-107); POTASSIUM 4.2 MMOL/L (3.6-5.0); SODIUM 139 MMOL/L (135-145)
[2020-06-12 07:43] LABS: ALBUMIN 4.3 GM/DL (3.2-4.5)
[2020-06-12 07:44] LABS: CALCIUM 9.4 MG/DL (8.5-10.1); TRIGLYCERIDES 133 MG/DL (<150); VLDL CHOLESTEROL 27 MG/DL (5-40)
[2020-06-12 07:45] LABS: GLUCOSE 180 MG/DL (70-105); TOTAL PROTEIN 7.7 GM/DL (6.4-8.2)
[2020-06-12 07:46] LABS: CARBON DIOXIDE 22 MMOL/L (21-32)
[2020-06-12 07:47] LABS: BILIRUBIN,TOTAL 0.4 MG/DL (0.1-1.0)
[2020-06-12 07:49] LABS: ALKALINE PHOSPHATASE 76 U/L (40-136); CHOLESTEROL 162 MG/DL (< 200); GFR ESTIMATED > 60
[2020-06-12 07:50] LABS: BUN/CREATININE RATIO 19
[2020-06-12 07:51] LABS: HDL CHOLESTEROL 50 MG/DL (40-60)
[2020-06-12 07:52] LABS: ALANINE AMINOTRANSFERASE 29 U/L (0-55)
== END ==
LOC: LAB 07:15
PROVIDERS: ATTEND Internal Medicine Endocrinology, Diabetes & Metabolism
DX: E11.9 Type 2 diabetes mellitus without complications (principal)
CPT/HCPCS: 36415; 80053; 80061

== ENCOUNTER → 2020-07-31 | Outpatient (CLI) | payer BC ==
[2020-07-31 10:51] LABS: BASOPHILS # (AUTO) 0.1 10^3/uL (0.0-0.1); BASOPHILS % (AUTO) 1 % (0-10); EOSINOPHILS # (AUTO) 0.5 10^3/uL (0.0-0.3); EOSINOPHILS % (AUTO) 5 % (0-10); HEMATOCRIT 47 % (40-54); HEMOGLOBIN 15.5 g/dL (13.3-17.7); LYMPHOCYTES # (AUTO) 1.9 10^3/uL (1.0-4.0); LYMPHOCYTES % (AUTO) 19 % (12-44); MEAN CORPUSCULAR HEMOGLOBIN 29 pg (25-34); MEAN CORPUSCULAR HGB CONC 33 g/dL (32-36); MEAN CORPUSCULAR VOLUME 88 fL (80-99); MEAN PLATELET VOLUME 9.5 fL (9.0-12.2); MONOCYTES # (AUTO) 1.1 10^3/uL (0.0-1.0); MONOCYTES % (AUTO) 11 % (0-12); NEUTROPHILS # (AUTO) 6.3 10^3/uL (1.8-7.8); NEUTROPHILS % (AUTO) 64 % (42-75); PLATELET COUNT 250 10^3/uL (130-400); WHITE BLOOD COUNT 9.8 10^3/uL (4.3-11.0)
[2020-07-31 11:14] LABS: ALANINE AMINOTRANSFERASE 30 U/L (0-55); ALBUMIN 4.2 GM/DL (3.2-4.5); ALKALINE PHOSPHATASE 84 U/L (40-136); BILIRUBIN,TOTAL 0.3 MG/DL (0.1-1.0); BUN/CREATININE RATIO 19; CALCIUM 9.2 MG/DL (8.5-10.1); CARBON DIOXIDE 25 MMOL/L (21-32); CHLORIDE 101 MMOL/L (98-107); CREATININE SERUM 1.09 MG/DL (0.60-1.30); GFR ESTIMATED > 60; GLUCOSE 280 MG/DL (70-105); POTASSIUM 4.4 MMOL/L (3.6-5.0); SODIUM 136 MMOL/L (135-145); TOTAL PROTEIN 7.6 GM/DL (6.4-8.2)
== END ==
LOC: EDSTATUS 05-01 10:37 → ONC 10:38
PROVIDERS: ATTEND Internal Medicine Hematology & Oncology
DX: C18.0 Malignant neoplasm of cecum (principal); C77.9 Secondary and unspecified malignant neoplasm of lymph node, unspecified; E11.9 Type 2 diabetes mellitus without complications; J45.909 Unspecified asthma, uncomplicated; Z90.49 Acquired absence of other specified parts of digestive tract; Z92.21 Personal history of antineoplastic chemotherapy; Z87.19 Personal history of other diseases of the digestive system
CPT/HCPCS: 80053; 82378; 85025; 99213

== ENCOUNTER → 2020-07-31 | Outpatient (CLI) | payer BC | LOC: LABNPT 15:53 | PROVIDERS: ATTEND Nurse Practitioner Family | DX: Z12.5 Encounter for screening for malignant neoplasm of prostate (principal) | CPT/HCPCS: 84153 ==

== ENCOUNTER 2020-09-22 05:35 | Outpatient (RCR) | payer BC ==
[~2020-09-22] VITALS: Ht 193 cm; Wt 88.6 kg
[~2020-09-22 05:35] MED LIST changes: +ASCO250T16 PO; +CHOL200074 PO; +CINN500C2 PO; +FLUT9.9S NS; +METF-397 PO; +ROSU5TAB13 PO; +VITA1CAP PO; +ZINC50TA11 PO
== END 2020-09-22 09:47 | disposition home or self-care (01) ==
LOC: PREOP 05:35
PROVIDERS: ATTEND Surgery
DX: Z01.812 Encounter for preprocedural laboratory examination (principal); Z12.11 Encounter for screening for malignant neoplasm of colon; Z85.038 Personal history of other malignant neoplasm of large intestine; Z20.828 Contact with and (suspected) exposure to other viral communicable diseases
CPT/HCPCS: 87635

== ENCOUNTER 2020-09-26 10:45 | Day surgery (SDC) | payer BC ==
[~2020-09-26] VITALS: Ht 193 cm; Wt 89.0 kg
[2020-09-26] MEDS ORDERED: LACTATED RINGERS 1,000 ML IV ONE (10:49)
[2020-09-26] MEDS ORDERED: LACTATED RINGERS 1,000 ML IV STA (10:50)
[2020-09-26 11:03] VITALS: BP 140/93
--- NOTE | 2020-09-26 11:55 | Progress Note-Pre Operative ---
Pre-Operative Progress Note H&P Reviewed The H&P was reviewed, patient examined and no changes noted. Date Seen by Provider: Sep 26, 2020 Time Seen by Provider: 11:55 Date H&P Reviewed: Sep 26, 2020 Time H&P Reviewed: 11:55 Pre-Operative Diagnosis: hx colon cancer RENAN DECKER DO Sep 26, 2020 11:55
[2020-09-26] MEDS ORDERED: PROPOFOL INJECTION 50 ML IV ONE (12:09)
[2020-09-26] MEDS ORDERED: MIDAZOLAM 2 MG/2 ML (VERSED) VIAL ONE (12:09)
[2020-09-26] MEDS ORDERED: proPOfol 200 MG/20 ML (DIPRIVAN) VIAL IV ONE (13:22)
[2020-09-26 13:35] VITALS: BP 144/85
[2020-09-26 13:45] VITALS: BP 139/84
[2020-09-26 13:50] VITALS: BP 139/84
--- NOTE | 2020-09-26 13:58 | Progress Note-Post Operative ---
Post-Operative Progess Note Surgeon (s)/Athletic Team Physician (s) Surgeon RENAN DECKER DO Athletic Team Physician: na Pre-Operative Diagnosis hx colon cancer Post-Operative Diagnosis same Procedure & Operative Findings Date of Procedure 09/26/20 Procedure Performed/Findings colonoscopy Anesthesia Type per [facility] Estimated Blood Loss Estimated blood loss (mL): na Specimens/Packing Specimens Removed na RENAN DECKER DO Sep 26, 2020 13:58
--- NOTE | 2020-09-26 13:59 | Discharge Inst-Simple/Standard ---
Discharge Inst-Standard Patient Instructions/Follow Up Plan of Care/Instructions/FU: 3 years Miguelito any issues before that be seen at that time. Activity as Tolerated: Yes Discharge Diet: Regular Diet RENAN DECKER DO Sep 26, 2020 13:59
[2020-09-26 14:23] VITALS: BP 135/90
--- NOTE | 2020-09-26 14:34 | Anesthesia-General Post-Op ---
MAC Patient Condition Mental Status/LOC: Same as Preop Cardiovascular: Satisfactory Nausea/Vomiting: Absent Respiratory: Satisfactory Pain: Controlled Complications: Absent Post Op Complications Complications None Follow Up Care/Instructions Patient Instructions None needed. Anesthesiology Discharge Order Discharge Order Patient is doing well, no complaints, stable vital signs, no apparent adverse anesthesia problems. No complications reported per nursing. ARY DOWNING CRNA Sep 26, 2020 14:34
--- NOTE | 2020-09-26 18:59 | OPERATIVE REPORT ---
DATE OF SERVICE: 09/26/2020 PREOPERATIVE DIAGNOSIS: History of colon cancer. POSTOPERATIVE DIAGNOSIS: History of colon cancer. PROCEDURE: Colonoscopy. SURGEON: Renan Farley DO ANESTHESIA: Per HOPPER FILLER. ESTIMATED BLOOD LOSS: None. COMPLICATIONS: None. INDICATIONS: The patient is a 60-year-old male with history of colon cancer. He understands risks and benefits of procedure and wished to proceed with procedure. Consent was signed in the chart. DESCRIPTION OF PROCEDURE: The patient was taken to the endoscopy suite, placed in left lateral recumbent position. Timeout was performed. Digital rectal exam was performed. No palpable polyps, masses or ulcerations. Scope was inserted in the rectum, advanced all the way to the ileocolonic anastomosis. Prep was adequate. Scope was then slowly retracted back. There were no polyps, masses or ulcerations in the ileocolonic anastomosis, transverse, descending, sigmoid colon. Once in the rectum, scope was retroflexed noting no other pathology. Scope was returned to its normal position, slowly withdrawn until completely removed. The patient tolerated procedure well without any complications, taken to recovery room in stable condition. RECOMMENDATIONS: He will need repeat colonoscopy in 3 years. Any issues before that will be seen at that time. Job ID: [id number] DocumentID: [id number] Dictated Date: 09/26/2020 14:02:20 Slip Laster Date: 09/26/2020 18:58:29 Dictated By: RENAN FARLEY DO
== END 2020-09-26 14:30 | disposition home or self-care (01) ==
LOC: ENDO 10:45
PROVIDERS: ATTEND Surgery
DX: Z85.038 Personal history of other malignant neoplasm of large intestine (principal); J45.909 Unspecified asthma, uncomplicated; F41.9 Anxiety disorder, unspecified; G89.29 Other chronic pain; E11.40 Type 2 diabetes mellitus with diabetic neuropathy, unspecified; Z79.51 Long term (current) use of inhaled steroids; Z79.899 Other long term (current) drug therapy; Z88.1 Allergy status to other antibiotic agents; Z88.7 Allergy status to serum and vaccine; Z88.5 Allergy status to narcotic agent; Z91.018 Allergy to other foods; Z91.040 Latex allergy status; Z91.012 Allergy to eggs; Z80.0 Family history of malignant neoplasm of digestive organs
CPT/HCPCS: 82962

== ENCOUNTER → 2021-01-29 | Outpatient (CLI) | payer BC ==
[2021-01-29 11:05] LABS: BASOPHILS # (AUTO) 0.1 10^3/uL (0.0-0.1); BASOPHILS % (AUTO) 1 % (0-10); EOSINOPHILS # (AUTO) 0.4 10^3/uL (0.0-0.3); EOSINOPHILS % (AUTO) 4 % (0-10); HEMATOCRIT 44 % (40-54); HEMOGLOBIN 14.4 g/dL (13.3-17.7); LYMPHOCYTES # (AUTO) 1.9 10^3/uL (1.0-4.0); LYMPHOCYTES % (AUTO) 20 % (12-44); MEAN CORPUSCULAR HEMOGLOBIN 29 pg (25-34); MEAN CORPUSCULAR HGB CONC 32 g/dL (32-36); MEAN CORPUSCULAR VOLUME 90 fL (80-99); MEAN PLATELET VOLUME 9.1 fL (9.0-12.2); MONOCYTES # (AUTO) 0.9 10^3/uL (0.0-1.0); MONOCYTES % (AUTO) 10 % (0-12); NEUTROPHILS # (AUTO) 5.9 10^3/uL (1.8-7.8); NEUTROPHILS % (AUTO) 65 % (42-75); PLATELET COUNT 262 10^3/uL (130-400); WHITE BLOOD COUNT 9.2 10^3/uL (4.3-11.0)
[2021-01-29 11:22] LABS: ALANINE AMINOTRANSFERASE 31 U/L (0-55); ALBUMIN 4.2 GM/DL (3.2-4.5); ALKALINE PHOSPHATASE 61 U/L (40-136); BILIRUBIN,TOTAL 0.3 MG/DL (0.1-1.0); BUN/CREATININE RATIO 21; CALCIUM 9.5 MG/DL (8.5-10.1); CARBON DIOXIDE 24 MMOL/L (21-32); CHLORIDE 101 MMOL/L (98-107); CREATININE SERUM 0.92 MG/DL (0.60-1.30); GFR ESTIMATED > 60; GLUCOSE 182 MG/DL (70-105); POTASSIUM 4.6 MMOL/L (3.6-5.0); SODIUM 136 MMOL/L (135-145); TOTAL PROTEIN 7.4 GM/DL (6.4-8.2)
== END ==
LOC: ONC 10:49
PROVIDERS: ATTEND Internal Medicine Hematology & Oncology
DX: C18.0 Malignant neoplasm of cecum (principal); C77.9 Secondary and unspecified malignant neoplasm of lymph node, unspecified; E11.65 Type 2 diabetes mellitus with hyperglycemia; J45.909 Unspecified asthma, uncomplicated; Z92.21 Personal history of antineoplastic chemotherapy; Z87.19 Personal history of other diseases of the digestive system; Z90.49 Acquired absence of other specified parts of digestive tract
CPT/HCPCS: 80053; 82378; 85025; 99213

== ENCOUNTER → 2021-05-10 | Outpatient (CLI) | payer BC ==
[2021-05-10 09:45] LABS: BASOPHILS # (AUTO) 0.1 10^3/uL (0.0-0.1); BASOPHILS % (AUTO) 1 % (0-10); EOSINOPHILS # (AUTO) 0.6 10^3/uL (0.0-0.3); EOSINOPHILS % (AUTO) 6 % (0-10); HEMATOCRIT 45 % (40-54); HEMOGLOBIN 14.7 g/dL (13.3-17.7); LYMPHOCYTES % (AUTO) 20 % (12-44); MEAN CORPUSCULAR HEMOGLOBIN 29 pg (25-34); MEAN CORPUSCULAR HGB CONC 33 g/dL (32-36); MEAN CORPUSCULAR VOLUME 89 fL (80-99); MEAN PLATELET VOLUME 9.2 fL (9.0-12.2); MONOCYTES # (AUTO) 1.1 10^3/uL (0.0-1.0); MONOCYTES % (AUTO) 11 % (0-12); NEUTROPHILS # (AUTO) 6.3 10^3/uL (1.8-7.8); NEUTROPHILS % (AUTO) 62 % (42-75); PLATELET COUNT 236 10^3/uL (130-400); WHITE BLOOD COUNT 10.1 10^3/uL (4.3-11.0)
[2021-05-10 10:03] LABS: ALBUMIN 4.1 GM/DL (3.2-4.5); BILIRUBIN,TOTAL 0.3 MG/DL (0.1-1.0); CALCIUM 9.6 MG/DL (8.5-10.1); POTASSIUM 4.6 MMOL/L (3.6-5.0); TOTAL PROTEIN 7.6 GM/DL (6.4-8.2)
== END ==
LOC: ONC 08:41
PROVIDERS: ATTEND Internal Medicine Hematology & Oncology
DX: C18.0 Malignant neoplasm of cecum (principal); E11.65 Type 2 diabetes mellitus with hyperglycemia; Z92.21 Personal history of antineoplastic chemotherapy
CPT/HCPCS: 80053; 85025; 99213

== ENCOUNTER → 2021-07-23 | Outpatient (CLI) | payer BC ==
[2021-07-23 13:37] LABS: BASOPHILS # (AUTO) 0.1 10^3/uL (0.0-0.1); BASOPHILS % (AUTO) 1 % (0-10); EOSINOPHILS # (AUTO) 0.6 10^3/uL (0.0-0.3); EOSINOPHILS % (AUTO) 5 % (0-10); HEMATOCRIT 43 % (40-54); HEMOGLOBIN 14.1 g/dL (13.3-17.7); LYMPHOCYTES # (AUTO) 2.4 10^3/uL (1.0-4.0); LYMPHOCYTES % (AUTO) 21 % (12-44); MEAN CORPUSCULAR HEMOGLOBIN 29 pg (25-34); MEAN CORPUSCULAR HGB CONC 33 g/dL (32-36); MEAN CORPUSCULAR VOLUME 89 fL (80-99); MEAN PLATELET VOLUME 9.1 fL (9.0-12.2); MONOCYTES # (AUTO) 1.2 10^3/uL (0.0-1.0); MONOCYTES % (AUTO) 10 % (0-12); NEUTROPHILS # (AUTO) 7.3 10^3/uL (1.8-7.8); NEUTROPHILS % (AUTO) 63 % (42-75); PLATELET COUNT 238 10^3/uL (130-400); WHITE BLOOD COUNT 11.5 10^3/uL (4.3-11.0)
[2021-07-23 13:58] LABS: BILIRUBIN,TOTAL 0.4 MG/DL (0.1-1.0); CALCIUM 9.6 MG/DL (8.5-10.1); CREATININE SERUM 0.86 MG/DL (0.60-1.30); POTASSIUM 4.6 MMOL/L (3.6-5.0); TOTAL PROTEIN 7.1 GM/DL (6.4-8.2)
== END ==
LOC: ONC 13:17
PROVIDERS: ATTEND Internal Medicine Hematology & Oncology
DX: C18.0 Malignant neoplasm of cecum (principal); E11.9 Type 2 diabetes mellitus without complications; E11.65 Type 2 diabetes mellitus with hyperglycemia; Z92.21 Personal history of antineoplastic chemotherapy
CPT/HCPCS: 80053; 82378; 85025; 99213

== ENCOUNTER → 2022-08-09 | Outpatient (CLI) | payer BC ==
[~2022-08-09] MED LIST changes: +BARIUM for suspension 96% w/w (Vanilla Silq Medium Density) PO ONE; +BARIUM for suspension 98% w/w (Vanilla Silq High Density) PO ONE; +FLUC100T10 PO; -FLUC100T6 PO; -MOME13HF IH; +MOME13HF11 IH; +OMEP20TA56 PO; -OMEP20TA7 PO
--- NOTE | 2022-08-09 15:36 | Diagnostic Imaging Report ---
INDICATION: Prior esophageal dilatation in 2018. Patient has difficulty swallowing solid foods. EXAMINATION: Patient ingested effervescent crystals as well as thin and thick barium and imaging of the esophagus was performed in multiple obliquities. FINDINGS: The esophagus has a fairly smooth contour. No mass is identified. No gastroesophageal reflux was demonstrated. There is a small sliding-type hiatal hernia. There does appear to be a distal esophageal ring; however, no obstruction to the barium is seen. IMPRESSION: Small sliding-type hiatal hernia and findings suggestive of distal esophageal ring. No other abnormality is seen. Dictated by: Dictated on workstation # [id number]
== END ==
LOC: RAD 11:00
PROVIDERS: ATTEND Surgery
DX: K44.9 Diaphragmatic hernia without obstruction or gangrene (principal)
CPT/HCPCS: 74220

== ENCOUNTER 2022-08-26 12:38 | Outpatient (CLI) | payer BC ==
[~2022-08-26] VITALS: Ht 193 cm; Wt 93.2 kg
[~2022-08-26 12:38] MED LIST changes: +ALBU8.5H6 IH; -BARIUM for suspension 96% w/w (Vanilla Silq Medium Density) PO ONE; -BARIUM for suspension 98% w/w (Vanilla Silq High Density) PO ONE; -RT-ALBUINH IH
[2022-08-26] MEDS ORDERED: TIOT4MIS2 IH (12:47)
[2022-08-26] MEDS ORDERED: DAPA5TAB PO (12:47)
[2022-08-26] MEDS ORDERED: CHLO1CAP PO (12:47)
[2022-08-26] MEDS ORDERED: ELUX75TA PO (12:47)
== END 2022-08-26 12:50 | disposition home or self-care (01) ==
LOC: PREOP 12:38
PROVIDERS: ATTEND Surgery
DX: Z01.818 Encounter for other preprocedural examination (principal)

== ENCOUNTER 2022-09-03 12:31 | Day surgery (SDC) | payer BC ==
[~2022-09-03] VITALS: Ht 193 cm; Wt 93.2 kg
[~2022-09-03 12:31] MED LIST changes: +DAPA5TAB PO; +ELUX75TA PO; +TIOT4MIS2 IH
[2022-09-03] MEDS ORDERED: LACTATED RINGERS 1,000 ML IV STA (12:32)
[2022-09-03] MEDS ORDERED: HURRICAINE EXT TUBE (BENZOCAINE) XX PRN (12:45)
[2022-09-03 12:50] VITALS: BP 140/95
[2022-09-03] MEDS ORDERED: proPOfol 200 MG/20 ML (DIPRIVAN) VIAL IV ONE (13:01)
--- NOTE | 2022-09-03 13:01 | Progress Note-Pre Operative ---
Pre-Operative Progress Note Date of Available H&P: Aug 07, 2022 Date H&P Reviewed: Sep 03, 2022 Time H&P Reviewed: 13:00 History & Physical: H&P Reviewed, Patient Examed, No changes noted Changes from last HP None Pre-Operative Diagnosis: Dysphagia RENAN DECKER DO Sep 03, 2022 13:01
[2022-09-03 13:15] VITALS: BP 144/86
--- NOTE | 2022-09-03 13:19 | Discharge Inst-Simple/Standard ---
Discharge Inst-Standard Reconcile Patient Problems Problems Reviewed?: Yes Patient Instructions/Follow Up Plan of Care/Instructions/FU: Follow up with Dr. Farley in 4 weeks. Activity as Tolerated: Yes Discharge Diet: No Restrictions RENAN FARLEY DO Sep 03, 2022 13:19
[2022-09-03 13:20] VITALS: BP 140/81
--- NOTE | 2022-09-03 13:57 | Anesthesia-General Post-Op ---
MAC Patient Condition Mental Status/LOC: Same as Preop Cardiovascular: Satisfactory Nausea/Vomiting: Absent Respiratory: Satisfactory Pain: Controlled Complications: Absent Post Op Complications Complications None Follow Up Care/Instructions Patient Instructions None needed. Anesthesiology Discharge Order Discharge Order Patient is doing well, no complaints, stable vital signs, no apparent adverse anesthesia problems. No complications reported per nursing. DARRON WOMACK DO Sep 03, 2022 13:57
[2022-09-03 14:00] VITALS: BP 144/85
--- NOTE | 2022-09-04 00:20 | OPERATIVE REPORT ---
DATE OF SERVICE: 09/03/2022 PREOPERATIVE DIAGNOSIS: Dysphagia. POSTOPERATIVE DIAGNOSIS: Esophageal strictures, small hiatal hernia. PROCEDURE: EGD. SURGEON: Renan Farley DO. ANESTHESIA: [ ] ESTIMATED BLOOD LOSS: Scant. COMPLICATIONS: None. INDICATIONS: The patient is a 61-year-old male who having dysphagia symptoms, he understands risks and benefits of the procedure and wishes to proceed. Consent was signed in chart. DESCRIPTION OF PROCEDURE: The patient was taken to the endoscopy suite, placed in left lateral recumbent position. A timeout was performed. Scope was inserted in the mouth, down the esophagus, which is noting a distal esophageal stricture. Scope was able to be passed through it without difficulty through the stomach and into the duodenum. There were no polyps, masses or ulcerations in the duodenum. Scope was retracted back and the stomach was further insufflated. No polyps, masses or ulcerations. Scope was retroflexed noting some scant bleeding from the GE junction. No other pathology noted. Scope was returned to the normal position and slowly withdrawn to the distal esophagus, noting a stricture, had been dilated with the scope causing a superficial tear. The area was inserted and retracted multiple times, noting no other pathology, but also noting a small hiatal hernia. Scope was then slowly retracted back until completely removed, noting no other pathology. The patient tolerated the procedure well. There were no complications, taken to recovery room in stable condition. RECOMMENDATIONS: I would recommend repeat EGD in approximately 6-8 weeks to reevaluate the area and possible need for dilatation. Otherwise, continue on current medications. Job ID: [id number] DocumentID: [id number] Dictated Date: 09/03/2022 13:45:01 Visual Effects Artist Date: 09/04/2022 00:17:00 Dictated By: RENAN FARLEY DO
== END 2022-09-03 14:12 | disposition home or self-care (01) ==
LOC: ENDO 12:31
PROVIDERS: ATTEND Surgery
DX: K22.2 Esophageal obstruction (principal); K44.9 Diaphragmatic hernia without obstruction or gangrene; K91.71 Accidental puncture and laceration of a digestive system organ or structure during a digestive system procedure; Y73.3 Surgical instruments, materials and gastroenterology and urology devices (including sutures) associated with adverse incidents

== ENCOUNTER 2023-01-29 05:33 | Outpatient (CLI) | payer BC ==
[~2023-01-29] VITALS: Ht 193 cm; Wt 93.0 kg
[~2023-01-29 05:33] MED LIST changes: +MOME13HF12 IH; -MOME13HF2 IH; +MONT-47 PO; -MONT10TA21 PO
[2023-01-31] MEDS ORDERED: PIOG15TA9 PO (13:57)
== END 2023-01-31 14:00 | disposition home or self-care (01) ==
LOC: PREOP 05:33
PROVIDERS: ATTEND Surgery
DX: Z01.818 Encounter for other preprocedural examination (principal)

== ENCOUNTER 2023-02-11 07:26 | Day surgery (SDC) | payer BC ==
[~2023-02-11] VITALS: Ht 193 cm; Wt 93.0 kg
[~2023-02-11 07:26] MED LIST changes: +PIOG15TA9 PO
[2023-02-11 09:42] VITALS: BP 134/79
[2023-02-11 09:47] VITALS: BP 132/77
[2023-02-11 09:52] VITALS: BP 135/80
[2023-02-11] MEDS ORDERED: HURRICAINE EXT TUBE (BENZOCAINE) ONE (14:22)
[2023-02-11] MEDS ORDERED: LACTATED RINGERS 1,000 ML IV ONE (14:22)
--- NOTE | 2023-02-11 14:45 | Anesthesia-General Post-Op ---
MAC Patient Condition Mental Status/LOC: Same as Preop Cardiovascular: Satisfactory Nausea/Vomiting: Absent Respiratory: Satisfactory Pain: Controlled Complications: Absent Post Op Complications Complications None Follow Up Care/Instructions Patient Instructions None needed. Anesthesiology Discharge Order Discharge Order Patient is doing well, no complaints, stable vital signs, no apparent adverse anesthesia problems. No complications reported per nursing. CHANEL LINDSEY CRNA February 11, 2023 14:45
--- NOTE | 2023-02-11 15:28 | OPERATIVE REPORT ---
DATE OF SERVICE: 02/11/2023 PREOPERATIVE DIAGNOSIS: Dysphagia. POSTOPERATIVE DIAGNOSES: Hiatal hernia, gastric polyps, esophageal stricture. PROCEDURE: EGD with dilation to 12 mm. SURGEON: Renan Farley DO ANESTHESIA: Per LONG HAUL TRUCK DRIVER. ESTIMATED BLOOD LOSS: Scant. COMPLICATIONS: None. INDICATIONS: The patient is a 62-year-old male with history of dysphagia and stricture. He understands risks and benefits of procedure and wishes to proceed. Consent was signed in chart. DESCRIPTION OF PROCEDURE: The patient was taken to endoscopy suite, placed in left lateral recumbent position. Timeout was performed. Scope was inserted in the mouth, down the esophagus, stomach and into the duodenum without difficulty. No polyps, masses or ulcerations within the duodenum. Scope was retracted back in the stomach where it was further insufflated. Diffuse benign-appearing polyps. No masses or ulcerations. Scope was retroflexed noting a hiatal hernia. Scope was returned to its normal position, slowly withdrawn until distal esophagus, noting the distal esophageal stricture. Serial dilations were made going from 10 mm to 12 mm. Scant bleeding presence was stopped. Scope was then slowly retracted back until completely removed, noting no other pathology. The patient tolerated the procedure well without any complications, taken to recovery room in stable condition. RECOMMENDATIONS: The patient would consider repeat EGD and dilatation in 6-8 weeks to reevaluate her to dilate further. Any issues before that, be seen at that time. Job ID: [id number] DocumentID: [id number] Dictated Date: 02/11/2023 09:48:42 Promotional Demonstrator Date: 02/11/2023 15:26:00 Dictated By: RENAN FARLEY DO
[2023-02-12 09:55] VITALS: BP 135/80
[2023-02-12 10:10] VITALS: BP 135/80
[2023-02-12] MEDS ORDERED: LACTATED RINGERS 1,000 ML IV STA (11:07)
[2023-02-12] MEDS ORDERED: HURRICAINE EXT TUBE (BENZOCAINE) XX PRN (11:15)
[2023-02-12 13:43] VITALS: BP 131/84
== END 2023-02-11 10:13 | disposition home or self-care (01) ==
LOC: ENDO 07:26
PROVIDERS: ATTEND Surgery
DX: K22.2 Esophageal obstruction (principal); K31.7 Polyp of stomach and duodenum; K44.9 Diaphragmatic hernia without obstruction or gangrene; Z85.038 Personal history of other malignant neoplasm of large intestine

== ENCOUNTER 2023-03-24 05:38 | Outpatient (CLI) | payer BC ==
[~2023-03-24] VITALS: Ht 193 cm; Wt 86.3 kg
[2023-03-24] MEDS ORDERED: CHOL100048 PO (13:39)
[2023-03-24] MEDS ORDERED: AZEL205.10 NS (13:39)
[2023-03-24] MEDS ORDERED: VITA1CAP PO (13:39)
[2023-03-24] MEDS ORDERED: ZINC50TA51 PO (13:39)
[2023-03-24] MEDS ORDERED: FERR-84 PO (13:39)
[2023-03-24] MEDS ORDERED: ASCO500C18 PO (13:39)
== END 2023-03-24 13:55 | disposition home or self-care (01) ==
LOC: PREOP 05:38
PROVIDERS: ATTEND Specialist
DX: Z01.818 Encounter for other preprocedural examination (principal)

== ENCOUNTER 2023-03-28 06:12 | Day surgery (SDC) | payer BC ==
[~2023-03-28] VITALS: Ht 193 cm; Wt 86.3 kg
[~2023-03-28 06:12] MED LIST changes: +ASCO500C18 PO; +AZEL205.10 NS; +CHOL100048 PO; +FERR-84 PO; +ZINC50TA51 PO
[2023-03-28 06:20] VITALS: BP 144/87
[2023-03-28] MEDS ORDERED: POVIDONE (BETADINE) OPHTH SOLN 5% 30 ML OP ONE (06:30)
[2023-03-28] MEDS ORDERED: MOXIFLOXACIN OPHTH SOLN 5 MG/ML 0.3 ML SYRINGE OP ONE (06:30)
[2023-03-28] MEDS ORDERED: TIMOLOL 0.5% (CATARACTS) 0.3 ML BTL OU PRN (06:30)
[2023-03-28] MEDS: TETRACAINE 0.5% OPHTH SOLN 4 ML BTL (SINGLE DOSE ONLY) OU PRN ×4 (06:34→06:49)
[2023-03-28] MEDS: PHENYLEPHRINE 10% OPHTH (NEO-SYN) 5 ML BTL OU SCH ×3 (06:43→06:48)
[2023-03-28] MEDS: TROPICAMIDE 1% OPH SOLN (MYDRIACYL) 15 ML BTL OP SCH ×3 (06:43→06:48)
[2023-03-28] MEDS ORDERED: MIDAZOLAM 2 MG/2 ML (VERSED) VIAL ONE (07:14)
--- NOTE | 2023-03-28 07:21 | Ophthalmologist Pre-Op Note ---
Pre-Operative Progress Note H&P Reviewed The H&P was reviewed, patient examined and no changes noted. Date H&P Reviewed: Mar 28, 2023 Time H&P Reviewed: 07:21 Pre-Op Dx Cataract, Left Eye CARLOS PRICE MD Mar 28, 2023 07:21
--- NOTE | 2023-03-28 07:42 | Ophthalmology Operative Report ---
Cataract removal/placement IOL PREOPERATIVE DIAGNOSIS: Cataract Left Eye POSTOPERATIVE DIAGNOSIS: Cataract Left Eye PROCEDURE: Cataract removal and placement of posterior chamber implant, left eye SURGEON: Nabor Price ANESTHESIA: Topical with sedation COMPLICATIONS: None ESTIMATED BLOOD LOSS: Minimal DESCRIPTION OF PROCEDURE: After proper informed consent was obtained, the patient, a 62 male, was taken to the Operating Room and the left eye was anesthetized with tetracaine. The left eye was then prepped and draped in the usual manner. A wire lid speculum was placed. A paracentesis was made at the left hand position. Preservative free lidocaine was injected into the anterior chamber followed by viscoelastic. A clear corneal incision was made in the temporal position. A capsulorrhexis was preformed and the central nuclear and cortical material were removed. The posterior capsule was polished and an Otilio 15.5 AU00T0 was placed into the capsular bag. The residual viscoelastic was aspirated and balanced saline solution was injected into the anterior chamber. Moxifloxacin was injected into the anterior chamber. The wound was checked and found to be water tight. The patient tolerated the procedure well without complications. NABOR PRICE MD Mar 28, 2023 07:42
[2023-03-28 07:45] VITALS: BP 145/79
[2023-03-28] MEDS ORDERED: acetaZOLAMIDE ER 500 MG CAP (DIAMOX SEQUELS) PO ONE (09:30)
--- NOTE | 2023-03-28 13:37 | Anesthesia-General Post-Op ---
MAC Patient Condition Mental Status/LOC: Same as Preop Cardiovascular: Satisfactory Nausea/Vomiting: Absent Respiratory: Satisfactory Pain: Controlled Complications: Absent Post Op Complications Complications None Follow Up Care/Instructions Patient Instructions None needed. Anesthesiology Discharge Order Discharge Order Patient was doing well this morning after the procedure with no complaints, stable vital signs, no apparent adverse anesthesia problems. No complications reported per nursing. DARRON WOMACK DO Mar 28, 2023 13:37
== END 2023-03-28 07:57 | disposition home or self-care (01) ==
LOC: SDC 06:12
PROVIDERS: ATTEND Specialist
DX: E11.36 Type 2 diabetes mellitus with diabetic cataract (principal); H25.9 Unspecified age-related cataract; Z79.84 Long term (current) use of oral hypoglycemic drugs

== ENCOUNTER 2023-05-07 05:37 | Outpatient (CLI) | payer BC ==
[~2023-05-07] VITALS: Ht 193 cm; Wt 92.0 kg
== END 2023-05-08 10:25 | disposition home or self-care (01) ==
LOC: PREOP 05:37
PROVIDERS: ATTEND Surgery
DX: Z01.818 Encounter for other preprocedural examination (principal)

== ENCOUNTER 2023-05-20 07:01 | Day surgery (SDC) | payer BC ==
[~2023-05-20] VITALS: Ht 193 cm; Wt 92.0 kg
[2023-05-20] MEDS ORDERED: LACTATED RINGERS 1,000 ML IV STA (07:12)
[2023-05-20] MEDS ORDERED: HURRICAINE EXT TUBE (BENZOCAINE) XX PRN (07:15)
[2023-05-20 07:32] VITALS: BP 139/89
--- NOTE | 2023-05-20 07:48 | History & Physical-Surgical ---
History of Present Illness History of Present Illness Patient Consulted On(mario/time) 05/20/23 07:43 Date Seen by Provider: May 20, 2023 Time Seen by Provider: 07:35 Allergies and Home Medications Allergies Coded Allergies: Poultry (Verified Allergy, Severe, ANAPHYLAXIS, 08/19/16) Yeast (Verified Allergy, Severe, ANAPHYLAXIS, 08/19/16) aspirin (Verified Allergy, Severe, ANAPHYLAXIS, 08/19/16) latex (Verified Allergy, Severe, HIVES, 08/19/16) wheat (Verified Allergy, Severe, ANAPHYLAXIS, 08/19/16) Influenza Virus Vaccines (Verified Allergy, Unknown, 10/22/16) banana (Verified Allergy, Unknown, 10/22/16) corn (Verified Allergy, Unknown, 10/22/16) egg (Verified Allergy, Unknown, 10/22/16) garlic (Verified Allergy, Unknown, 10/22/16) oats (Verified Allergy, Unknown, 10/22/16) onion (Verified Allergy, Unknown, 10/22/16) peanut (Verified Allergy, Unknown, 10/22/16) pepper (genus Capsicum) (Verified Allergy, Unknown, 10/22/16) rice (Verified Allergy, Unknown, 10/22/16) shellfish derived (Verified Allergy, Unknown, 10/22/16) Uncoded Allergies: PAIN RELIEVERS (Allergy, Severe, ANAPHYLAXIS, 08/19/16) ANTIBIOTICS (Allergy, Unknown, 08/19/16) Patient Home Medication List Home Medication List Reviewed: Yes Albuterol Sulfate (Ventolin Hfa) 1 Puff Puff, 2 PUFF IH Q4H PRN for SHORTNESS OF BREATH, (Reported) Entered as Reported by: WANDA DESAI on 09/20/20 1311 Ascorbic Acid (Vitamin C) 500 Mg Capsule.er, 500 MG PO DAILY, (Reported) Entered as Reported by: RHONDA CARREON on 03/24/23 1339 Azelastine HCl (Astepro Allergy) 205.5 Mcg (0.15 %) Mccoy.pump, 205.5 MCG NS UD, (Reported) Entered as Reported by: RHONDA CARREON on 03/24/23 1339 Chlordiazepoxide/Clidinium Br (Chlordiazepoxide-Clidinium Cap) 5 Mg-2.5 Mg Capsule, 1 EACH PO UD, (Reported) Entered as Reported by: VIKAS SESAY on 08/26/22 1247 Cholecalciferol (Vitamin D3) (Vitamin D3) 25 Mcg (1000 Unit) Capsule, 25 MCG PO DAILY, (Reported) Entered as Reported by: RHONDA CARREON on 03/24/23 1339 Dapagliflozin Propanediol (Farxiga) 5 Mg Tablet, 10 MG PO DAILY, (Reported) Entered as Reported by: VIKAS SESAY on 08/26/22 1247 Eluxadoline (Viberzi) 75 Mg Tablet, 75 MG PO UD, (Reported) Entered as Reported by: VIKAS SESAY on 08/26/22 1247 Epinephrine (Epipen) 0.3 Mg/0.3 Ml Auto.injct, 0.3 MG IJ UD, (Reported) Entered as Reported by: JOHNSON ATKINSON on 10/24/16 1350 Ferrous Sulfate (Iron) 325 Mg (65 Mg Iron) Tablet, 325 MG PO DAILY, (Reported) Entered as Reported by: RHONDA CARREON on 03/24/23 1339 Fluticasone Propionate (Flonase Allergy Relief) 9.9 Ml Mccoy.susp, 1 SPRAY NS DAILY PRN for CONGESTION, (Reported) Entered as Reported by: WANDA DESAI on 09/20/20 1311 Loperamide HCl (Imodium A-D) 2 Mg Tablet, 2 MG PO Q8H PRN for DIARRHEA, (Reported) Entered as Reported by: WANDA DESAI on 08/19/16 1244 Metformin HCl (Metformin HCl) 500 Mg Tablet, 500 MG PO TID, (Reported) Entered as Reported by: WANDA DESAI on 09/20/20 1311 Mometasone/Formoterol (Dulera 200 Mcg/5 Mcg Inhaler) 200 Mcg-5 Mcg/Actuation Hfa.aer.ad, 2 PUFF IH BID, (Reported) Entered as Reported by: VIKAS SESAY on 08/24/19 1410 Montelukast Sodium (Singulair) 10 Mg Tablet, 10 MG PO DAILY, (Reported) Entered as Reported by: WANDA DESAI on 08/19/16 1244 Pantoprazole Sodium (Protonix) 40 Mg Tablet.dr, 40 MG PO DAILY Prescribed by: RENAN DECKER on 05/20/23 0834 Pioglitazone HCl (Actos) Unknown Strength Tablet, 1 TAB PO DAILY, (Reported) Entered as Reported by: VIKAS SESAY on 01/31/23 1357 Rosuvastatin Calcium (Rosuvastatin Calcium) 5 Mg Tablet, 5 MG PO DAILY, (Reported) Entered as Reported by: WANDA DESAI on 09/20/20 1311 Sitagliptin Phosphate (Januvia) 100 Mg Tablet, 100 MG PO DAILY, (Reported) Entered as Reported by: VIKAS SESAY on 08/24/19 1410 Tiotropium Animas (Spiriva Respimat 2.5MCG/ACTUATION) 2.5 Mcg/Actuation Mist.inhal, 2 PUFF IH DAILY, (Reported) Entered as Reported by: VIKAS SESAY on 08/26/22 1247 Vitamin B Complex (Vitamin B Complex) 1 Each Capsule, 1 EACH PO DAILY, (Re ported) Entered as Reported by: RHONDA CARREON on 03/24/23 1339 Zinc Amino Acid Chelate (Zinc) 50 Mg Tablet, 50 MG PO UD, (Reported) Entered as Reported by: RHONDA CARREON on 03/24/23 1339 Discontinued Medications Omeprazole (Omeprazole) 20 Mg Tablet.dr, 20 MG PO BID, (Reported) Entered as Reported by: VIKAS SESAY on 10/22/16 1036 Past Ivezkkv-Xcmtel-Cplpef Hx Patient Social History Smoking Status: Never a Smoker 2nd Hand Smoke Exposure: No Recent Hopitalizations: No Immunizations Up To Date Tetanus Booster (TDap): Unknown Seasonal Allergies Seasonal Allergies: Yes (SEVERE ALLERGIES ) Surgeries History of Surgeries: Yes (wisdom teeth, COLECTOMY,PORT/REMOVAL) Respiratory History of Respiratory Disorde: Yes (ASTHMA) Respiratory Disorders: Asthma Cardiovascular History of Cardiac Disorders: Yes Cardiac Disorders: High Cholesterol Neurological History of Neurological Disord: No Reproductive System Hx Reproductive Disorders: No Sexually Transmitted Disease: No HIV/AIDS: No Genitourinary History of Genitourinary Disor: No Gastrointestinal History of Gastrointestinal Di: Yes (colon ca, eosinophilic esophagitis, dysphagia) Gastrointestinal Disorders: Chronic Diarrhea, Irritable Bowel Musculoskeletal History of Musculoskeletal Dis: Yes Musculoskeletal Disorders: Chronic Back Pain Endocrine History of Endocrine Disorders: Yes Endocrine Disorders: Diabetes, Non-Insulin dep HEENT History of HEENT Disorders: Yes (GLASSES) Loss of Vision: Denies Hearing Impairment: Denies Cancer History of Cancer: Yes Cancer: Colon Psychosocial History of Psychiatric Problem: Yes (RELATED TO PROCEDURE) Behavioral Health Disorders: Anxiety Integumentary History of Skin or Integumenta: No Blood Transfusions History of Blood Disorders: No Adverse Reaction to a Blood Tr: No (N/A) Family Medical History Family Medial History: Cardiovascular disease 19 FATHER Colon cancer 19 FATHER Diabetes mellitus 19 FATHER FH: ovarian cancer 19 MOTHER Hypertension 19 FATHER Myocardial infarction Physical Exam-General Problems Physical Exam Vital Signs Vital Signs - First Documented 05/20/23 07:32 Temp 36.3 Pulse 79 Resp 16 B/P (MAP) 139/89 (106) Pulse Ox 95 O2 Delivery Room Air Capillary Refill : Data Review Labs Laboratory Tests 05/20/23 07:16: Glucometer 127H ROSEMARY COVARRUBIAS May 20, 2023 07:48 GUADALUPEOctMay 20, 2023 14:21
[2023-05-20] MEDS ORDERED: MIDAZOLAM INJ 2 MG/2 ML VIAL ONE (08:08)
[2023-05-20] MEDS ORDERED: PROPOFOL INJECTION 50 ML IV ONE (08:08)
[2023-05-20 08:30] VITALS: BP 131/68
--- NOTE | 2023-05-20 08:32 | Progress Note-Post Operative ---
Post-Operative Progess Note Surgeon (s)/Buffing Wheel Operator (s) Surgeon RENAN DECKER DO Buffing Wheel Operator: none Pre-Operative Diagnosis Dysphagia, esophageal stricture Post-Operative Diagnosis esophageal stricture Procedure & Operative Findings Date of Procedure 05/20/23 Procedure Performed/Findings EGD with biopsy and dilation to 12mm Anesthesia Type per AUTOMATION ENGINEER Estimated Blood Loss Estimated blood loss (mL): none Specimens/Packing Specimens Removed antrum RENAN DECKER DO May 20, 2023 08:32
[2023-05-20] MEDS ORDERED: PANT40TA2 PO (08:34)
--- NOTE | 2023-05-20 08:34 | Discharge Inst-Simple/Standard ---
Discharge Inst-Standard Discharge Medications New, Converted or Re-Newed RX: Transmitted to Pharmacy Patient Instructions/Follow Up Plan of Care/Instructions/FU: 2 weeks jagdeep Activity as Tolerated: Yes Discharge Diet: Liquid Diet (advance diet tomorrow) RENAN DECKER DO May 20, 2023 08:34
[2023-05-20 08:35] VITALS: BP 127/71
[2023-05-20 08:40] VITALS: BP 133/72
[2023-05-20 09:08] VITALS: BP 133/72
[2023-05-20 09:10] VITALS: BP 133/72
--- NOTE | 2023-05-20 10:30 | OPERATIVE REPORT ---
DATE OF SERVICE: 05/20/2023 PREOPERATIVE DIAGNOSIS: Distal esophageal stricture. POSTOPERATIVE DIAGNOSIS: Distal esophageal stricture. PROCEDURE: EGD with biopsy of antrum and dilation to 12 mm of esophageal stricture. SURGEON: Renan Farley DO ANESTHESIA: Per HOSE CEMENTER. ESTIMATED BLOOD LOSS: None. COMPLICATIONS: None. INDICATIONS: The patient is a 62-year-old male with a history of distal esophageal stricture, has some dysphagia symptoms. He understands risks and benefits of procedure and wished to proceed. Consent was signed in chart. DESCRIPTION OF PROCEDURE: The patient was taken to the endoscopy suite, placed in left lateral recumbent position. Timeout was performed. Scope was inserted in the mouth, down the esophagus, stomach, into the duodenum without difficulty. No polyps, masses or ulcerations in the duodenum. Scope was slowly retracted back into stomach where it was further insufflated. No masses or ulcerations. Couple of benign-appearing polyps. Biopsy of the antrum was obtained. Scope was retroflexed noting a small hiatal hernia. Scope was returned to its normal position, slowly withdrawn until the distal esophagus. Some slight stricture present, approximately 10 mm. Balloon was inserted and was able to be dilated up to 12 mm. At this point, got a little bit of bleeding, so stopped needing further dilation. Scope was then slowly retracted until completely removed. The patient tolerated the procedure well without complications, taken to recovery room in stable condition. RECOMMENDATIONS: The patient was recommended repeat EGD with dilation in probably 3-4 months. We will make sure he is on Protonix 40 mg daily. Any issues before that, he will be seen at that time. The patient will follow up in 2 weeks. Job ID: [id number] DocumentID: [id number] Dictated Date: 05/20/2023 08:31:21 Animal Care Service Worker Date: 05/20/2023 10:28:00 Dictated By: RENAN FARLEY DO
--- NOTE | 2023-05-20 12:24 | Anesthesia-General Post-Op ---
MAC Patient Condition Mental Status/LOC: Same as Preop Cardiovascular: Satisfactory Nausea/Vomiting: Absent Respiratory: Satisfactory Pain: Controlled Complications: Absent Post Op Complications Complications None Follow Up Care/Instructions Patient Instructions None needed. Anesthesiology Discharge Order Discharge Order Patient is doing well, no complaints, stable vital signs, no apparent adverse anesthesia problems. No complications reported per nursing. CHANEL LINDSEY CRNA May 20, 2023 12:24
== END 2023-05-20 09:10 | disposition home or self-care (01) ==
LOC: ENDO 07:01
PROVIDERS: ATTEND Surgery
DX: K22.2 Esophageal obstruction (principal); K31.7 Polyp of stomach and duodenum; K44.9 Diaphragmatic hernia without obstruction or gangrene; Z85.038 Personal history of other malignant neoplasm of large intestine
CPT/HCPCS: 82947; 88305

== ENCOUNTER 2023-08-13 05:31 | Outpatient (CLI) | payer BC ==
[~2023-08-13] VITALS: Ht 193 cm; Wt 92.0 kg
[~2023-08-13 05:31] MED LIST changes: +PANT40TA2 PO
[2023-08-13] MEDS ORDERED: FAMO-356 PO (14:09)
[2023-08-13] MEDS ORDERED: PIOG15TA67 PO (14:09)
[2023-08-13] MEDS ORDERED: VITA-203 PO (14:09)
[2023-08-13] MEDS ORDERED: OMEP20TA56 PO (14:09)
== END 2023-08-13 14:14 | disposition home or self-care (01) ==
LOC: PREOP 05:31
PROVIDERS: ATTEND Surgery
DX: Z01.818 Encounter for other preprocedural examination (principal)

== ENCOUNTER 2023-08-26 07:11 | Day surgery (SDC) | payer BC ==
[~2023-08-26] VITALS: Ht 193 cm; Wt 92.0 kg
[~2023-08-26 07:11] MED LIST changes: +FAMO-356 PO; +PIOG15TA67 PO; +VITA-203 PO
[2023-08-26] MEDS ORDERED: HURRICAINE EXT TUBE (BENZOCAINE) XX PRN (07:15)
[2023-08-26] MEDS ORDERED: LACTATED RINGERS 1,000 ML 1,000 ML IV STA (07:15)
[2023-08-26 07:23] VITALS: BP 140/86
[2023-08-26] MEDS ORDERED: MIDAZOLAM INJ 2 MG/2 ML VIAL ONE (07:53)
--- NOTE | 2023-08-26 09:19 | Progress Note-Post Operative ---
Post-Operative Progess Note Surgeon (s)/Tea Tree Farm Worker (s) Surgeon RENAN DECKER DO Tea Tree Farm Worker: n/a Pre-Operative Diagnosis Dysphagia, esophageal stricture Post-Operative Diagnosis Esophageal stricture, gastric polyps Procedure & Operative Findings Date of Procedure 08/26/23 Procedure Performed/Findings EGD with dilation to 13.5mm Anesthesia Type per AREA OPERATIONS DIRECTOR Estimated Blood Loss Estimated blood loss (mL): trace Specimens/Packing Specimens Removed none RENAN DECKER DO Aug 26, 2023 09:19
--- NOTE | 2023-08-26 09:23 | Discharge Inst-Simple/Standard ---
Discharge Inst-Standard Patient Instructions/Follow Up Plan of Care/Instructions/FU: 4 weeks jagdeep Activity as Tolerated: Yes Discharge Diet: Regular Diet RENAN DECKER DO Aug 26, 2023 09:23
[2023-08-26 09:25] VITALS: BP 124/69
[2023-08-26 09:35] VITALS: BP 124/69
[2023-08-26 10:07] VITALS: BP 124/69
--- NOTE | 2023-08-26 12:58 | Anesthesia-General Post-Op ---
MAC Patient Condition Mental Status/LOC: Same as Preop Cardiovascular: Satisfactory Nausea/Vomiting: Absent Respiratory: Satisfactory Pain: Controlled Complications: Absent Post Op Complications Complications None Follow Up Care/Instructions Patient Instructions None needed. Anesthesiology Discharge Order Discharge Order Patient is doing well, no complaints, stable vital signs, no apparent adverse anesthesia problems. No complications reported per nursing. CHANEL LINDSEY CRNA Aug 26, 2023 12:58
--- NOTE | 2023-08-26 16:07 | OPERATIVE REPORT ---
DATE OF SERVICE: 08/26/2023 PREOPERATIVE DIAGNOSIS: Esophageal stricture. POSTOPERATIVE DIAGNOSES: Esophageal stricture, gastric polyps, benign-appearing. PROCEDURE: EGD with dilatation to 13.5 mm. SURGEON: Renan Farley DO ANESTHESIA: Per SUBMARINE CABLE EQUIPMENT TECHNICIAN. ESTIMATED BLOOD LOSS: Scant. COMPLICATIONS: None. INDICATIONS: The patient is a 62-year-old male with esophageal stricture history. He understands risks and benefits of procedure and wishes to proceed. Consent was signed in chart. DESCRIPTION OF PROCEDURE: The patient was taken to endoscopy suite, placed in left lateral recumbent position. Timeout was performed. Scope was inserted in the mouth, down the esophagus, encountering a small stricture. Scope was then able to be passed through this area into the stomach and into the duodenum without difficulty. No polyps, masses or ulcerations in the duodenum. Scope was slowly retracted back into stomach where it was further insufflated. Gastric polyps were benign-appearing in the stomach with masses or ulcerations. Scope was retroflexed, noting no other pathology. Scope was returned to its normal position, slowly withdrawn until distal esophagus. A distal esophageal stricture was present. This was ballooned serially up to 13.5 mm. At 13.5 mm, he had some scant bleeding. Therefore, I ceased to advance any further. Scope was then slowly retracted back until completely removed. The patient tolerated the procedure well without complications, taken to recovery room in stable condition. I would recommend continuing to see how he is doing We would consider repeating EGD in 6-12 months with possible dilatation. If any symptoms worsening before that, he would be seen at that time. Job ID: [id number] DocumentID: [id number] Dictated Date: 08/26/2023 09:30:09 Early Childhood Date: 08/26/2023 16:05:00 Dictated By: RENAN FARLEY DO
== END 2023-08-26 10:07 | disposition home or self-care (01) ==
LOC: ENDO 07:11
PROVIDERS: ATTEND Surgery
DX: K22.2 Esophageal obstruction (principal); K31.7 Polyp of stomach and duodenum; K21.00 Gastro-esophageal reflux disease with esophagitis, without bleeding